=== PATIENT | female | born 1930 | race Caucasian/White ===

== ENCOUNTER 2018-10-18 12:32 | Inpatient (IN) ==
[2018-10-18] MEDS ORDERED: SODIUM CHLORIDE 0.9% 1000ML 1,000 ML IV SCH (13:00)
[2018-10-18 13:15] LABS: Alanine Aminotransferase 87 U/L (12-78); Albumin Level 3.5 gm/dl (3.4-5.0); Aspartate Aminotransferase 170 U/L (15-37); BUN Creatinine Ratio 19.1 (10-20); Bilirubin Direct 0.2 mg/dl (0-0.2); Blood Urea Nitrogen 20 mg/dl (7-18); Calcium 8.9 mg/dl (8.5-10.1); Carbon Dioxide 22 mmol/L (21-32); Chloride 107 mmol/L (98-107); Creatinine Clr Calc Pharmacy 33.3 ml/min; Est GFR (African American) 55.7; Est GFR (Non-African American) 48.1; Glucose 125 mg/dl (70-99); Lipase 232 U/L (73-393); Magnesium 2.4 mg/dl (1.8-2.4); Sodium 138 mmol/L (136-145)
[2018-10-18] MEDS ORDERED: SODIUM CHLORIDE 0.9% 250 ML IV PRN ×2 (13:15→16:32)
[2018-10-18 13:18] LABS: Hemoglobin 5.6 g/dL (12.0-16.0); Mean Corpuscular Hemoglobin 16.9 pg (25-34); Mean Corpuscular Hgb Conc 26.7 g/dL (32-36); Mean Corpuscular Volume 63.3 fL (80-100); Mean Platelet Volume 9.1 fL (7.4-10.4); Platelet Count 277 K/uL (130-400); RDW Coefficient of Variation 20.8 % (11.5-14.5); RDW Standard Deviation 47.9 fL (36.4-46.3); Red Blood Count 3.32 M/uL (4.2-5.4); White Blood Count 6.97 K/uL (4.8-10.8)
[2018-10-18 13:20] LABS: Alkaline Phosphatase 109 U/L (45-117); Bilirubin,Total 0.6 mg/dl (0.2-1); NT Pro B Type Natriuretic Pept 1583 pg/ml (0-1800); Total Protein 7.5 gm/dl (6.4-8.2); Troponin I < 0.015 ng/ml (0-0.045)
[2018-10-18 13:28] LABS: Anisocytosis Present; Basophils # (auto) 0.06 K/uL (0-0.2); Basophils % (auto) 0.9 %; Eosinophils # (auto) 0.06 K/uL (0-0.5); Eosinophils % (auto) 0.9 %; Hypochromasia Present; Immature Granulocytes # (auto) 0.01 K/uL (0.00-0.02); Immature Granulocytes % (auto) 0.1 %; Lymphocytes # (auto) 1.99 K/uL (1.2-3.4); Lymphocytes % (auto) 28.6 %; Microcytosis Present; Monocytes # (auto) 0.29 K/uL (0.11-0.59); Monocytes % (auto) 4.2 %; Neutrophils # (auto) 4.56 K/uL (1.4-6.5); Neutrophils % (auto) 65.3 %; Polychromasia 1+
[2018-10-18 13:36] LABS: INR 1.1 (0.9-1.1); Partial Thromboplastin Ratio 0.9; Partial Thromboplastin Time 24.8 Seconds (21.0-31.0); Prothrombin Time 11.2 Seconds (9.0-12.0)
--- NOTE | 2018-10-18 13:43 | XRay Report ---
XR chest 1V portable CLINICAL HISTORY: Chest Pain dyspnea COMPARISON STUDY: No previous studies for comparison. FINDINGS: Mild cardiomegaly. Prominent pulmonary vasculature. Diaphragms are smooth. No evidence for superimposed infiltrate. IMPRESSION: Developing congestive heart failure. The above report was generated using voice recognition software. It may contain grammatical, syntax or spelling errors. Electronically signed by: Jack Encarnacion M.D. 10/18/2018 1:42 PM
--- NOTE | 2018-10-18 14:35 | History & Physical Report ---
Date of Service October 18, 2018 Assessment & Plan (1) Dizziness: (2) Microcytic hypochromic anemia: (3) Lactic acidosis: This is an 88-year-old female who has significant past medical history of HTN, history of migraines, postherpetic neuralgia who presents to [facility] ED secondary to dizziness and shortness of breath x1 day. In ED pt initially found to be in Afib with RVR notable lab abnormalities include significant microcytic anemia with H/H 5.6/21.0, lactic acidosis 2.1, elevated bun/cr 20/1.05, elevated LFT AST 170, ALT 87 ECG read accelerated junctional rhythm with some anterolateral ST T wave abn, but appears more consistent with Afib with RVR CXR concerning for development of CHF In ED pt received 1L IVF bolus along with 2 unit PRBC ordered admit to PCU transfuse 2 unit PRBC with 40mg IV Lasix in between units GI consulted due to new onset microcytic anemia Anemia and celiac panel ordered check retic count/LDH H/H q6h stop ASA at this time (4) Atrial fibrillation with RVR: Afib with RVR likely in setting of acute anemia, serial ecgs Transfuse 2 units with PRBC CHADSVASC 3 will re evaluate from cardiac standpoint once blood repleted if continues to remain in afib with RVR will discuss with cardiology she is without chest pain and troponin WNL (5) Elevated LFTs: AST 170 and ALT 87 check RUQ U/S Tbili and alk phos WNL (6) HTN (hypertension): hold metoprolol given hypotension (7) Post herpetic neuralgia: has been taking prn ibuprofen at home complains of pain being persistent and affecting QOL once hemodynamically stable could consider gabapentin (8) DVT prophylaxis: SCD/TEDS no chemical prophylaxis given anemia Disposition: admit to telemetry Follow up: PCP Kathleen Griffith PA-C upon discharge Patient was seen and examined in collaboration with Dr. Nixon, please see addendum Starting 10/19/18 patient will be under the care of Dr. Page History of Present Illness Chief Complaint: DIZZY and SOB x 1 day. Primary Care Provider: Kathleen Griffith This is an 88-year-old female who has significant past medical history of HTN, history of migraines, postherpetic neuralgia who presents to [facility] ED secondary to dizziness and shortness of breath x1 day. Patient states when she woke up and got out of bed today she felt dizzy and lightheaded. She went into use the bathroom and when she came out she felt like she could pass out. Also was having palpitations. Granddaughter was near her who assisted her to her bed. She also had dyspnea on exertion this morning as well and family felt she overall looked pale. She does note CROWDER for approximately the past 2 to 3 months. Further she notes she has not been feeling well for the past 3 months ever since she had an episode of shingles on her right buttock. She was treated with antivirals appropriately but had persistent postherpetic neuralgia. She takes occasional ibuprofen for this but not on a daily basis. Otherwise she just, "lives with the pain." Outside of the shingles she denies any recent illness. Denies any fever, chills, sweats, jose alberto syncope, chest pain, hemoptysis, nausea, vomiting, diarrhea, abdominal pain, melena, hematochezia, vaginal bleeding. She does complain of dysuria, but feels related to her, "shingle pain. " She does have increased frequency with urination but only at night. She denies any increased urgency or hematuria. Never at bedside. She is otherwise healthy 88-year-old female who lives with her granddaughter and great-grandchild. Does not need any assist device for ambulation. Denies any recent smoking or alcohol use. Denies any prior history of CAD, CO, CVA, cardiac arrhythmia, diabetes, anemia or GI bleed. Her last colonoscopy was approximately 20 years ago when she elicits she had a polyp removed. Allergies Allergy/AdvReac Type Severity Reaction Status Date / Time amoxicillin AdvReac Intermediate Rash Unverified 10/18/18 13:53 diphenhydramine AdvReac Intermediate Rash Unverified 10/18/18 13:53 [From Benadryl] Penicillins AdvReac Intermediate Severe Rash Unverified 10/18/18 13:53 Home Medications Home Medications Medication Instructions Recorded Confirmed Type aspirin 81 mg PO BID 10/18/18 10/18/18 History ibuprofen 200 mg PO Q6H PRN 10/18/18 10/18/18 History metoprolol tartrate 25 mg PO BID 10/18/18 10/18/18 History Past Med/Surg History Medical History Migraine HTN (hypertension) History of tooth extraction History of shingles Surgical History History of colonoscopy Social History Preferred Language: Divehi Communication Ability: Effective Current Living Situation: Family Current Living Situation Comment: Lives with granddaugther and great grandchild Feels Safe at Home: Yes Smoking Status: Former smoker Age Quit Using Tobacco: 32 ; Number of Years Since Quit: 50 ; Hx Alcohol Use: No Hx Substance Use: No Review of Systems Review of Systems: All systems reviewed & are unremarkable except as noted in HPI & below Physical Exam Physical Exam: Constitutional: Elderly, petite F, pale, vitals as above, NAD, sitting up in bed, pleasant, conversing easily Head: Normocephalic, Atraumatic Eyes: PERRL, conjunctivae normal, anicteric sclerae but pale ENMT: external ear and nose normal, oropharynx dry Neck: trachea midline, no thyromegaly normal visual inspection Respiratory: normal respiratory effort, lungs clear to auscultation, +bibasilar crackles, but no wheeze or rhonchi. Normal insp/exp effort, no accessory muscle use Cardiovascular: IRR?IRR, 1/6 LINCOLN soft at apex, trace pretibial and pedal edema Vessels: no JVD or carotid bruit Chest: normal inspection of chest Abdomen: normal bowel sounds, soft, nontender, no hepatosplenomegaly , negative balderas cordoba sign Musculoskeletal: no cyanosis or clubbing, extremities motor strength 5/5 Skin: no rashes, warm mild turgor cap refill > 2 sec Neurologic: PERRL, EOMI, accommodation nl, no face palsy, no dysarthria CN's II-XI intact bilaterally and moves all extremities Psychiatric: A+Ox3, euthymic affect Lymphatic: no cervical or axillary lymphadenopathy : deferred Results & Data Vital Signs (Past 12 Hours) Vital Signs Temp Pulse Resp BP Pulse Ox 10/18/18 13:30 126 H 17 123/71 97 10/18/18 13:16 135 H 26 H 150/53 H 97 10/18/18 12:57 124 H 16 99 10/18/18 12:35 127 H 23 122/50 L 98 10/18/18 12:32 36.6 C 125 H 16 122/50 L 99 Laboratory Results Short CBC 10/18/18 Range/Units 12:02 WBC 6.97 (4.8-10.8) K/uL Hgb 5.6 L* (12.0-16.0) g/dL Hct 21.0 L (37-47) % Plt Count 277 (130-400) K/uL BMP 10/18/18 12:02 Sodium 138 Potassium 4.0 Chloride 107 Carbon Dioxide 22 BUN 20 H Creatinine 1.05 Glucose 125 H Calcium 8.9 Cardiac Enzymes 10/18/18 Range/Units 12:02 Troponin I < 0.015 (0-0.045) ng/ml Liver Function 10/18/18 Range/Units 12:02 Total Bilirubin 0.6 (0.2-1) mg/dl Direct Bilirubin 0.2 (0-0.2) mg/dl AST 170 H (15-37) U/L ALT 87 H (12-78) U/L Alkaline Phosphatase 109 (45-117) U/L Albumin 3.5 (3.4-5.0) gm/dl Diagnostic Findings CXR: IMPRESSION: Developing congestive heart failure. Medications Administered Discontinued Medications Sodium Chloride (Nss 1000ml) 1,000 mls @ 999 mls/hr IV .Q1H1M JUDE Stop: 10/18/18 14:00 Last Admin: 10/18/18 13:29 Dose: 999 mls/hr Documented by: [id number] ECG Rate (beats per minute): 122 Rhythm: atrial fibrillation Code Status & VTE Plan VTE Prophylaxis Plan VTE Prophylaxis will be ordered: Yes Supervising Physician Co-Signing Physician Notes I, Dr. Ariel Nixon, have seen and examined the patient with physician accountant assistant and agree with the assessment and plan as above and would like to comment that This is a patient who presents with ATRIAL FIBRILLATION WITH RAPID VENTRICULAR RESPONSE likely secondary to ANEMIA ADMISSION HEMOGLOBIN IS 5.6, unclear at this time as to the cause of the anemia as patient denies gross bleeding from orifices and normal brown stool but will need to rule out acute blood loss anemia from a gastrointestinal bleed. currently to be transfused 2 units of PRBC plan is to complete transfusion and may be possible that heart rates can come down after adequate hemoglobin trend Hgb, monitor ELEVATED LACTIC ACID, TRANSAMINITIS Gastronenterology service discussed with patient and patient's family about upper possible EGD/colonoscopy on 10/19/18 agree with other assessment and plans as documented by physician accountant assistant daughter [phone] affirming FULL CODE STATUS on exam in the ED general: currently getting PRBC transfusion, not in distress. patient speaking comfortably and described shortness of breath and palpitations at home before coming to the hospital heart: tachycardia from 120 to 130 beats per minute Lungs: generally clear lung peralta, no wheezing abdomen: soft, nontender, bowel sounds present Extremities: no edmea neuro/psych: moves extremities, verbal, awake, cooperative My colleague Dr. Page will be following the patient starting on 10/19/18
--- NOTE | 2018-10-18 14:49 | Gastrointestinal Consultation ---
Date of Consultation October 18, 2018 Assessment & Plan (1) Anemia: Pt is a 88 y/o female seen for symptomatic anemia. She denies any overt s/s of GI//LAST PULLER bleeding. She isn't on any anticoagulants. Used Ibuprofen for post shingles pain and on ASA 81mg daily. Hx of colon polyps, colonoscopies x2 in - CL diet today, NPO after midnight - Agree w PRBC transfusion and monitor H/H closely - Anemia workup: iron indices, celiac panel, B12, FA levels - EGD/Colonoscopy evaluation tomorrow by Dr. Guerrier to r/o GI bleeding, celiac dz, malignancies. Bowel prep ordered Supervising Physician Co-Signing Physician Notes I performed a history and physical examination of the patient, including specifically on physical exam - soft, nontender abdomen. I have discussed the patient's management with Charissa. Please refer to the nurse practitioner's note for the documented findings and plan of care. 88 female patient presented with symptomatic anemia, no overt ongoing GI bleeding. Plan: EGD and colonoscopy tomorrow. History of Present Illness Reason for Consultation: Anemia Requesting Physician: Lashell Valencia PA-C Attending Physician: Dr. Pawel Guerrier History of Present Illness Pt is a 88 y/o female w PMHx of HTN, migraines, Afib, shingles who presented to ED w c/o light headedness, SOB, "pounding" heartbeats . Upon evaluation found to be anemia w H/H of 5.6/21. Plt 277, INR 1.1. She denies any associated abd pain, indigestion, n/v, dark tarry stools or rectal bleeding. Also denies any urinary or vaginal bleeding. She was taking Ibuprofen for shingles. Denies any anticoa gulants. On ASA 81mg. She had hx of colonoscopies x 2 in , found to have flat polyps. Denies any hx of colorectal ca, celiacs dz or autoimmune dz. Allergies Allergy/AdvReac Type Severity Reaction Status Date / Time amoxicillin AdvReac Intermediate Rash Unverified 10/18/18 13:53 diphenhydramine AdvReac Intermediate Rash Unverified 10/18/18 13:53 [From Benadryl] Penicillins AdvReac Intermediate Severe Rash Unverified 10/18/18 13:53 Home Medications Home Medications Medication Instructions Recorded Confirmed Type aspirin 81 mg PO BID 10/18/18 10/18/18 History ibuprofen 200 mg PO Q6H PRN 10/18/18 10/18/18 History metoprolol tartrate 25 mg PO BID 10/18/18 10/18/18 History Patient History Medical History Migraine HTN (hypertension) History of tooth extraction History of shingles Surgical History History of colonoscopy Social History Preferred Language: Tajik Communication Ability: Effective Current Living Situation: Family Current Living Situation Comment: Lives with granddaugther and great grandchild Feels Safe at Home: Yes Smoking Status: Former smoker Age Quit Using Tobacco: 32 ; Number of Years Since Quit: 50 ; Hx Alcohol Use: No Hx Substance Use: No Review of Systems Review of Systems: All systems reviewed & are unremarkable except as noted in HPI & below Physical Exam Constitutional: WD/WN, vitals as above well groomed, cooperative and comfortable Eyes: PERRL, conjunctivae normal, anicteric sclerae ENMT: external ear and nose normal, oropharynx normal Respiratory: normal respiratory effort, lungs clear to auscultation Cardiovascular: RRR, no murmur, no edema Gastrointestinal (Abdomen): normal bowel sounds, soft, nontender, no hepatosplenomegaly Skin: no rashes, warm and dry no jaundice Psychiatric: A+Ox3, euthymic affect Lymphatic: no lymphedema Results & Data Vital Signs (Past 12 Hours) Vital Signs Temp Pulse Resp BP Pulse Ox 10/18/18 13:30 126 H 17 123/71 97 10/18/18 13:16 135 H 26 H 150/53 H 97 10/18/18 12:57 124 H 16 99 10/18/18 12:35 127 H 23 122/50 L 98 10/18/18 12:32 36.6 C 125 H 16 122/50 L 99
[2018-10-18 15:50] LABS: Reticulocyte % 1.2 % (0.5-2.0); Reticulocytes # 0.04 10^6/uL (0.02-0.10)
[2018-10-18] MEDS ORDERED: ACETAMINOPHEN 325 MG TAB PO PRN (16:32)
[2018-10-18] MEDS ORDERED: ALUMINUM/MAGNESIUM SUSP 30 ML UDC PO PRN (16:32)
[2018-10-18] MEDS ORDERED: MAGNESIUM HYDROXIDE SUSP 30 ML UDC PO PRN (16:32)
[2018-10-18] MEDS ORDERED: POLYETHYLENE (MIRALAX) 17 GM PACK PO PRN (16:32)
[2018-10-18] MEDS ORDERED: POLYETHYLENE (MIRALAX) 17 GM PACK PO ONE ×2 (17:00→21:00)
[2018-10-18] MEDS ORDERED: POLYETHYLENE GLYCOL 3350 238 GM BTL PO ONE (17:00)
[2018-10-18] MEDS ORDERED: FUROSEMIDE 40 MG in SYRINGE 0 ML IV ONE (17:00)
[2018-10-18] MEDS ORDERED: BISACODYL 5 MG TABEC PO SCH (17:00)
--- NOTE | 2018-10-18 17:30 | Emergency Department Note ---
Entered by Carmela Gallegos acting as a scribe for En Crews History of Present Illness General Chief complaint: Arrhythmia/Palpitations Time Seen by Provider: 10/18/18 12:51 Source: patient and family Mode of arrival: EMS Limitations: no limitations History of Present Illness Onset (ago): hour(s) 3 Location: chest Radiation: non-radiation Pain Consistency: + intermittent Relieved By: + none Exacerbated By: + none Associated symptoms: + other (-hematochezia, -hematuria) Treatments prior to arrival: none The patient is an 88 year old female who presents to the ED with complaints of palpitations. She states after she took a shower this morning, she felt short of breath and noticed her heart was "pounding". She also became dizzy, so her family had her eat a bowl of cereal. She seemed to be feeling better, then after standing up to wash her hands after using the restroom, she felt "faint", and her family had to help her sit down. She does not take any daily blood thinners. She denies any recent hematochezia or hematuria. The patients family notes she has been weak since being treated for shingles in June. Home Medications Home Medications Medication Instructions Recorded Confirmed Type aspirin 81 mg PO BID 10/18/18 10/18/18 History ibuprofen 200 mg PO Q6H PRN 10/18/18 10/18/18 History metoprolol tartrate 25 mg PO BID 10/18/18 10/18/18 History Allergies Allergy/AdvReac Type Severity Reaction Status Date / Time amoxicillin AdvReac Intermediate Rash Unverified 10/18/18 13:53 diphenhydramine AdvReac Intermediate Rash Unverified 10/18/18 13:53 [From Benadryl] Penicillins AdvReac Intermediate Severe Rash Unverified 10/18/18 13:53 Past Med/Surg History Medical History Migraine HTN (hypertension) History of tooth extraction History of shingles Surgical History History of colonoscopy Social History Preferred Language: Maori Communication Ability: Effective Camp Program Director Required: Yes Beliefs That Will Affect Care: None Current Living Situation: Family Current Living Situation Comment: Lives with granddaugther and great grandchild Other Information That Helps Us Care for You: No Feels Safe at Home: Yes Safety Concerns: Feels Safe At This Time Smoking Status: Former smoker Age Quit Using Tobacco: 32 ; Smoking End Date: 52 years ; Number of Years Since Quit: 50 ; Hx Alcohol Use: No Hx Substance Use: No Review of Systems See HPI for pertinent positives & negatives. and A total of 10 systems reviewed and were otherwise negative Physical Exam Vital Signs Vital Signs - 24 hr 10/18/18 12:32 10/18/18 12:35 10/18/18 12:57 Temperature 36.6 C Temperature Source Oral Sepsis Recent Fever Within 48 Hours No Sepsis New/Unexplained Change in Mental Status No Sepsis Action Taken by Nursing No Action Required Pulse Rate 125 H 127 H 124 H Pulse Rate from SpO2 Sensor Pulse Rhythm Irregular Irregular Respiratory Rate 16 23 16 Respiratory Effort / Characteristics Non-Labored Respiratory Depth Normal Respiratory Pattern Regular Blood Pressure 122/50 L 122/50 L Blood Pressure Mean 74 74 Pulse Oximetry 99 98 99 Oxygen Delivery Method Room Air Room Air Room Air 10/18/18 13:16 10/18/18 13:30 10/18/18 14:00 Temperature Temperature Source Sepsis Recent Fever Within 48 Hours Sepsis New/Unexplained Change in Mental Status Sepsis Action Taken by Nursing Pulse Rate 135 H 126 H 127 H Pulse Rate from SpO2 Sensor 68 68 82 Pulse Rhythm Respiratory Rate 26 H 17 17 Respiratory Effort / Characteristics Respiratory Depth Respiratory Pattern Blood Pressure 150/53 H 123/71 100/43 L Blood Pressure Mean 85 88 62 Pulse Oximetry 97 97 93 Oxygen Delivery Method Room Air Room Air Room Air GENERAL: She is oriented to person, place, and time. She appears well-developed and well-nourished. She does not appear distressed. HENT: Exam performed. * Head: Normocephalic and atraumatic. * Right Ear: External ear normal. No mastoid tenderness. * Left Ear: External ear normal. No mastoid tenderness. * Mouth/Throat: The oropharynx is clear and moist. No trismus in the jaw. No dental abscesses or uvula swelling. No oropharyngeal exudate or tonsillar abscesses. EYES: Conjunctivae and EOM are normal. Pupils are equal, round, and reactive to light. Right eye exhibits no discharge. Left eye exhibits no discharge. No scleral icterus. NECK: Normal range of motion. Neck supple. No JVD present. No spinous process tenderness present. No carotid bruit present. No rigidity. No tracheal deviation and normal range of motion present. No Brudzinski's sign and no Kernig's sign noted. CV: Irregular rhythm, tachycardic heart rate, normal heart sounds and intact d istal pulses. There is no peripheral edema. Palpable radial pulses bue. PULM/CHEST: Effort normal and breath sounds normal. No respiratory distress. No stridor. She has no wheezes. She has no rales. Chest Wall: She exhibits no tenderness. ABD: The abdomen is soft. Bowel sounds are normal. She has no distension. No mass is present. There is no tenderness. There is no rebound, no guarding, no Avila's sign and no tenderness at McBurney's point. Rovsig negative * Rectal: Performed with nursing repair department supervisor, hem negative MUSC/SKEL: Normal range of motion. There is no peripheral edema, tenderness or deformity. LYMPH: No cervical adenopathy. NEURO: She is alert and oriented to person, place, and time. She has normal strength. No cranial nerve deficit or sensory deficit. Coordination and gait no rmal. GCS eye subscore is 4. GCS verbal subscore is 5. GCS motor subscore is 6. cerbellar tests wnl. SKIN: Skin is pale. Skin is warm and dry. She is not diaphoretic. PSYCH: She has a normal mood and affect. Her behavior is normal. Judgment and thought content normal. Course 1252: The patient was evaluated in room B12 and a complete history and physical were performed. 1310: Labs show hemoglobin is 5.6. Patient was agreeable for blood transfusion. 2 units packed red blood cells ordered in the emergency department. I discussed the patients case with Antony Dangelo. The patient will be further evaluated. Consultations Consultation #1: I discussed the patients case with Antony Dangelo. The patient will be further evaluated. Time: 13:40 Administered Medications Discontinued Medications Sodium Chloride (Nss 1000ml) 1,000 mls @ 999 mls/hr IV .Q1H1M JUDE Stop: 10/18/18 14:00 Last Infusion: 10/18/18 14:52 Dose: 0 mls/hr Documented by: [id number] Admin: 10/18/18 13:29 Dose: 999 mls/hr Documented by: [id number] Medical Decision Making Medical Records Attestation: I reviewed the patient's medical records. Home Medications Current Medication List: was personally reviewed by me Laboratory Data Attestation: I reviewed the patient's lab results. Result diagrams: 10/18/18 12:02 10/18/18 12:02 Lab Results 10/18/18 10/18/18 10/18/18 Range/Units 12:02 12:02 13:12 WBC 6.97 (4.8-10.8) K/uL RBC 3.32 L (4.2-5.4) M/uL Hgb 5.6 L* (12.0-16.0) g/dL Hct 21.0 L (37-47) % MCV 63.3 L (80-100) fL MCH 16.9 L (25-34) pg MCHC 26.7 L (32-36) g/dL RDW Std Deviation 47.9 H (36.4-46.3) fL RDW Coeff of Chaka 20.8 H (11.5-14.5) % Plt Count 277 (130-400) K/uL MPV 9.1 (7.4-10.4) fL Immature Gran % (Auto) 0.1 % Neut % (Auto) 65.3 % Lymph % (Auto) 28.6 % [place] % (Auto) 4.2 % Eos % (Auto) 0.9 % Baso % (Auto) 0.9 % Reticulocyte % (Auto) 1.2 (0.5-2.0) % Immature Gran # (Auto) 0.01 (0.00-0.02) K/uL Neut # (Auto) 4.56 (1.4-6.5) K/uL Lymph # (Auto) 1.99 (1.2-3.4) K/uL [place] # (Auto) 0.29 (0.11-0.59) K/uL Eos # (Auto) 0.06 (0-0.5) K/uL Baso # (Auto) 0.06 (0-0.2) K/uL Reticulocyte # 0.04 (0.02-0.10) 10^6/uL Polychromasia 1+ Hypochromasia Present Anisocytosis Present Microcytosis Present PT (9.0-12.0) Seconds INR (0.9-1.1) APTT (21.0-31.0) Seconds PTT Ratio D-Dimer Sodium 138 (136-145) mmol/L Potassium 4.0 (3.5-5.1) mmol/L Chloride 107 (98-107) mmol/L Carbon Dioxide 22 (21-32) mmol/L Anion Gap 9.0 (3-11) BUN 20 H (7-18) mg/dl Creatinine 1.05 (0.6-1.2) mg/dl Est Cr Clr Drug Dosing 33.3 ml/min Est GFR ( Amer) 55.7 Est GFR (Non-Af Amer) 48.1 BUN/Creatinine Ratio 19.1 (10-20) Glucose 125 H (70-99) mg/dl Lactate 2.1 H* (0.4-2.0) mmol/L Calcium 8.9 (8.5-10.1) mg/dl Magnesium 2.4 (1.8-2.4) mg/dl Total Bilirubin 0.6 (0.2-1) mg/dl Direct Bilirubin 0.2 (0-0.2) mg/dl AST 170 H (15-37) U/L ALT 87 H (12-78) U/L Alkaline Phosphatase 109 (45-117) U/L Troponin I < 0.015 (0-0.045) ng/ml NT-Pro-B Natriuret Pep 1583 (0-1800) pg/ml Total Protein 7.5 (6.4-8.2) gm/dl Albumin 3.5 (3.4-5.0) gm/dl Lipase 232 (73-393) U/L Blood Type Blood Type Recheck Antibody Screen Crossmatch 10/18/18 10/18/18 10/18/18 Range/Units 13:12 13:13 13:33 WBC (4.8-10.8) K/uL RBC (4.2-5.4) M/uL Hgb (12.0-16.0) g/dL Hct (37-47) % MCV (80-100) fL MCH (25-34) pg MCHC (32-36) g/dL RDW Std Deviation (36.4-46.3) fL RDW Coeff of Chaka (11.5-14.5) % Plt Count (130-400) K/uL MPV (7.4-10.4) fL Immature Gran % (Auto) % Neut % (Auto) % Lymph % (Auto) % [place] % (Auto) % Eos % (Auto) % Baso % (Auto) % Reticulocyte % (Auto) (0.5-2.0) % Immature Gran # (Auto) (0.00-0.02) K/uL Neut # (Auto) (1.4-6.5) K/uL Lymph # (Auto) (1.2-3.4) K/uL [place] # (Auto) (0.11-0.59) K/uL Eos # (Auto) (0-0.5) K/uL Baso # (Auto) (0-0.2) K/uL Reticulocyte # (0.02-0.10) 10^6/uL Polychromasia Hypochromasia Anisocytosis Microcytosis PT 11.2 (9.0-12.0) Seconds INR 1.1 (0.9-1.1) APTT 24.8 (21.0-31.0) Seconds PTT Ratio 0.9 D-Dimer Cancelled Sodium (136-145) mmol/L Potassium (3.5-5.1) mmol/L Chloride (98-107) mmol/L Carbon Dioxide (21-32) mmol/L Anion Gap (3-11) BUN (7-18) mg/dl Creatinine (0.6-1.2) mg/dl Est Cr Clr Drug Dosing ml/min Est GFR ( Amer) Est GFR (Non-Af Amer) BUN/Creatinine Ratio (10-20) Glucose (70-99) mg/dl Lactate (0.4-2.0) mmol/L Calcium (8.5-10.1) mg/dl Magnesium (1.8-2.4) mg/dl Total Bilirubin (0.2-1) mg/dl Direct Bilirubin (0-0.2) mg/dl AST (15-37) U/L ALT (12-78) U/L Alkaline Phosphatase (45-117) U/L Troponin I (0-0.045) ng/ml NT-Pro-B Natriuret Pep (0-1800) pg/ml Total Protein (6.4-8.2) gm/dl Albumin (3.4-5.0) gm/dl Lipase (73-393) U/L Blood Type O Positive Blood Type Recheck O Positive Antibody Screen NEGATIVE Crossmatch See Detail Imaging Data Radiologist's Impression: Radiology results as stated below per my review and the radiologist's interpretation: XR chest 1V portable CLINICAL HISTORY: Chest Pain dyspnea COMPARISON STUDY: No previous studies for comparison. FINDINGS: Mild cardiomegaly. Prominent pulmonary vasculature. Diaphragms are smooth. No evidence for superimposed infiltrate. IMPRESSION: Developing congestive heart failure. The above report was generated using voice recognition software. It may contain grammatical, syntax or spelling errors. Electronically signed by: Jack Encarnacion M.D. 10/18/2018 1:42 PM ECG Data Attestation: I personally reviewed and interpreted this ECG as follows: Indication: palpitations Rate (beats per minute): 125 Rhythm: atrial fibrillation Findings: + other (QRS and QTC within normal limits); no ST depression and no ST elevation Blood Pressure Blood Pressure Findings: Elevated blood pressure Blood Pressure Disposition: further management by hospitalist MDM Narrative Labs show hemoglobin is 5.6. Patient was agreeable for blood transfusion. 2 units packed red blood cells ordered in the emergency department. I [facility] the [facility]. The patient will be further evaluated. Impression & Plan Anemia, Atrial fibrillation Critical Care Time Critical Care Time: Yes Total Critical Care Time: 68 I have personally spent 68 minutes of critical care time in the direct management of this patient. This includes bedside care, interpretation of diagnostic studies, and testing, discussion with consultants, patient, and family members, and other required patient management activities. This 68 cameron phil is in excess of all separately billable procedures. Discharge Plan Visit Data *Final* Discharge Date/Time: 10/18/18 16:09 Chief Complaint: Arrhythmia/Palpitations ED Provider: En Crews Discharge Problem: Anemia, Atrial fibrillation Patient Disposition: Admitted As Inpatient Discharge Instructions Interventions: ED Discharge Assessment Last Done: 10/18/18 16:09 The scribe's documentation has been prepared under my direction and personally reviewed by me in its entirety. I confirm that the note above accurately reflects all work, treatment, procedures, and medical decision making performed by me.
[2018-10-18 18:45] LABS: Hematocrit (blood only) 23.6 % (37-47); Hemoglobin 6.6 g/dL (12.0-16.0)
[2018-10-18 18:51] LABS: Appearance Urine Clear (Clear); Bilirubin Urine Negative (Negative); Blood Urine Negative (Negative); Color Urine Yellow; Glucose Urine UA Negative (Negative); Ketones Urine Negative (Negative); Leukocyte Esterase Urine Negative (Negative); Nitrite Urine Negative (Negative); Protein Urine Negative (Negative); Specific Gravity Urine 1.019 (1.000-1.030); Urobilinogen Urine Negative (Negative); pH Urine 5.5 (4.5-7.5)
[2018-10-18 19:06] LABS: Ferritin 5.4 ng/ml (8-388); T4 Free Thyroxine 1.29 ng/dl (0.8-1.6)
[2018-10-18 19:14] LABS: Folate (Folic Acid) > 24.00 ng/ml (>5.38); Vitamin B12 1031 pg/ml (211-911)
[2018-10-18] MEDS ORDERED: POLYETHYLENE GLYCOL 3350 238 GM BTL PO SCH (21:00)
--- NOTE | 2018-10-18 21:08 | Ultrasound Report ---
US abdomen limited CLINICAL HISTORY: 88 years-old Female presenting with RUQ; elevated LFTS. TECHNIQUE: Real-time grayscale and limited color Doppler ultrasound imaging of the abdomen limited to the right upper quadrant was performed. COMPARISON: None. FINDINGS: Pancreas: Visualized portions of the pancreatic head and body normal. Liver: Hyperechogenic parenchyma with heterogeneous echotexture, likely indicating fibrosis or steato sis. The liver measures 13.2 cm in maximal sagittal dimension. No sonographic evidence of hepatic mas s. Main portal vein patent with normal directional flow. Biliary: No intrahepatic biliary ductal dilatation. Common bile duct measures up to 3 mm in diameter. Gallbladder: No evidence of gallstones, gallbladder wall thickening, gallbladder distention, or peric holecystic fluid or inflammatory change. Sonographic Avila's sign negative. Right kidney: Normal in appearance without evidence of hydronephrosis. Ascites: Minimal upper abdominal ascites. Other: None. IMPRESSION: 1. No cholelithiasis or biliary ductal dilatation. No evidence of cholecystitis. 2. Hyperechogenic and heterogeneous liver parenchyma could indicate underlying fibrosis or steatosis . Electronically signed by: Itz Goyal M.D. 10/18/2018 9:06 PM
[2018-10-18] MEDS ORDERED: METOPROLOL TARTRATE 25 MG TAB PO STA (22:01)
[2018-10-18] MEDS ORDERED: METOPROLOL TARTRATE 1 MG/ML VIAL IV PRN (22:02)
[2018-10-19 00:17] LABS: BUN Creatinine Ratio 18.8 (10-20); Calcium 8.4 mg/dl (8.5-10.1); Creatinine Clr Calc Pharmacy 37.1 ml/min; Est GFR (African American) 67.1; Est GFR (Non-African American) 57.9; Potassium 3.6 mmol/L (3.5-5.1)
[2018-10-19 00:30] LABS: Albumin Globulin Ratio 0.9 (0.9-2); Albumin Level 3.3 gm/dl (3.4-5.0); Bilirubin,Total 1.6 mg/dl (0.2-1); Globulin 3.8 gm/dl (2.5-4.0); Total Protein 7.1 gm/dl (6.4-8.2)
[2018-10-19] MEDS ORDERED: POTASSIUM CHLORIDE 20 MEQ TABCR PO STA (01:15)
[2018-10-19] MEDS ORDERED: METOPROLOL TARTRATE 1 MG/ML VIAL IV STA (01:15)
[2018-10-19] MEDS ORDERED: ACETAMINOPHEN 325 MG TAB PO PRN (01:16)
[2018-10-19 06:00] LABS: Basophils # (auto) 0.03 K/uL (0-0.2); Basophils % (auto) 0.4 %; Eosinophils # (auto) 0.08 K/uL (0-0.5); Eosinophils % (auto) 1.2 %; Hemoglobin 7.3 g/dL (12.0-16.0); Immature Granulocytes # (auto) 0.01 K/uL (0.00-0.02); Immature Granulocytes % (auto) 0.1 %; Lymphocytes # (auto) 2.45 K/uL (1.2-3.4); Lymphocytes % (auto) 35.6 %; Mean Corpuscular Hemoglobin 19.8 pg (25-34); Mean Corpuscular Hgb Conc 29.2 g/dL (32-36); Mean Corpuscular Volume 67.8 fL (80-100); Mean Platelet Volume 9.1 fL (7.4-10.4); Monocytes # (auto) 0.52 K/uL (0.11-0.59); Monocytes % (auto) 7.6 %; Neutrophils # (auto) 3.79 K/uL (1.4-6.5); Neutrophils % (auto) 55.1 %; Platelet Count 235 K/uL (130-400); RDW Coefficient of Variation 23.7 % (11.5-14.5); RDW Standard Deviation 58.4 fL (36.4-46.3); Red Blood Count 3.69 M/uL (4.2-5.4); White Blood Count 6.88 K/uL (4.8-10.8)
[2018-10-19 06:25] LABS: Albumin Level 3.1 gm/dl (3.4-5.0); Calcium 8.3 mg/dl (8.5-10.1); Creatinine Clr Calc Pharmacy 38.8 ml/min; Est GFR (African American) 70.9; Est GFR (Non-African American) 61.2
[2018-10-19 06:28] LABS: Anisocytosis Present; Bilirubin,Total 1.5 mg/dl (0.2-1); Giant Platelets 1+; Globulin 3.2 gm/dl (2.5-4.0); Hypochromasia Present; Microcytosis Present; Total Protein 6.3 gm/dl (6.4-8.2)
[2018-10-19] MEDS: METOPROLOL TARTRATE 25 MG TAB PO SCH ×3 (07:44→20:48)
--- NOTE | 2018-10-19 11:34 | History & Physical Bridge Note ---
Date of Service October 19, 2018 History & Physical Bridge Note I have examined the patient, reviewed the History & Physical and in the interval since the performance of the History & Physical I have noted the following changes of clinical significance: no changes noted Pt did well overnight. Received 2U PRBC transfusion, H/H responded. She completed bowel prep, NPO overnight. Exam: - AAOx3 in NAD - CTA bilateral lungs - HRR no murmur or gallops - Abd soft, non tender, BS present - No edema on extremities. She still has brown liquid stools this AM. Will give one dose of tap water enema to see if we can clean out her colon a bit more in anticipation for EGD and colonoscopy evals this afternoon. Pls keep her NPO Supervising Physician Co-Signing Physician Notes I performed a history and physical examination of the patient, including specifically on physical exam - soft, nontender abdomen. I have discussed the patient's management with Charissa. Please refer to the nurse practitioner's note for the documented findings and plan of care.
[2018-10-19] MEDS ORDERED: ePHEDrine sulfate 50 MG/ML AMP IV PRN (15:08)
[2018-10-19] MEDS ORDERED: ATROPINE SULFATE 0.1 MG/ML 10ML SYR IV PRN (15:08)
--- NOTE | 2018-10-19 15:08 | Anesthesiology Consultation ---
Date of Service October 19, 2018 Assessment & Plan Chart Review Chart Review: Acceptable Risk for Surgery and Patient NOT seen in Pre Admission Testing Consults Requested none ASA ASA4 Proposed Anesthesia Anesthesia Type: MAC Risk / Benefits Reviewed With: PT / POA / Parent / Guardian, Accepts Plan and Informed Consent Obtained History Surgery Operation Date: 10/19/18 10:15 Proposed Procedures p Colonoscopy EGD Dr. Guerrier - Pawel Guerrier MD Height/Weight Height: 5 ft 1 in Weight: 59.2 kg Allergies Allergy/AdvReac Type Severity Reaction Status Date / Time amoxicillin AdvReac Intermediate Rash Unverified 10/18/18 13:53 diphenhydramine AdvReac Intermediate Rash Unverified 10/18/18 13:53 [From Benadryl] Penicillins AdvReac Intermediate Severe Rash Unverified 10/18/18 13:53 Medications Home Medications Medication Instructions Recorded Confirmed Last Taken aspirin 81 mg PO BID 10/18/18 10/18/18 10/18/18 ibuprofen 200 mg PO Q6H PRN 10/18/18 10/18/18 10/17/18 18:00 200mg metoprolol tartrate 25 mg PO BID 10/18/18 10/18/18 10/18/18 Active Medications Generic Name Dose Route Start Last Admin Trade Name Freq PRN Reason Stop Dose Admin Metoprolol Tartrate 12.5 mg 10/19/18 09:00 10/19/18 07:44 Lopressor PO 11/18/18 08:59 12.5 mg TID JUDE Administration NPO Date Last Intake of Fluids: 10/19/18 Time Last Intake of Fluids: 08:30 Last Intake of Fluids Comment: sip with meds Date Last Intake of Solids: 10/18/18 Time Last Intake of Solids: 10:30 Last Intake of Solids Comment: rice crispies Past Medical History Medical History Migraine HTN (hypertension) History of tooth extraction History of shingles Afib Anemia Exercise / Class Metabolic Activity III < 4 Walking/Shop/Light housework Past Surgical History Surgical History History of colonoscopy Past Anesthesia History No Hx of Anesthesia Complications and No Family Hx of Anesthesia Complications History of PONV No Hx of PONV and No Hx of Motion Sickness Social History Smoking Status: Former smoker Smoking End Date: 50 years Hx Alcohol Use: No Hx Substance Use: No Physical Exam Vital Signs Last Vital Signs Temp 37.1 C 10/19/18 14:49 Pulse 78 10/19/18 14:49 Resp 20 10/19/18 14:49 BP 138/74 10/19/18 14:49 Pulse Ox 94 10/19/18 14:49 Constitutional not obese ENMT Mouth: + dentures and + edentulous Thyromental Distance: < 3.5 Finger Breadths Mallampati Class: II Neck normal visual inspection and trachea midline; neck extension not limited Respiratory normal respiratory effort Auscultation: lungs clear to auscultation bilaterally Cardiovascular Rate/Rhythm: regular rate and regular rhythm Heart Sounds: no murmur Vessels: no carotid bruit Musculoskeletal Spine: normal cervical ROM Neurologic moves all extremities Motor/Sensory: no sensory deficit Psychiatric Orientation: alert and oriented x 3 Testing Laboratory Results 10/19/18 05:39 10/19/18 05:39 PT 11.2 Seconds (9.0-12.0) 10/18/18 13:13 INR 1.1 (0.9-1.1) 10/18/18 13:13 APTT 24.8 Seconds (21.0-31.0) 10/18/18 13:13 Urine Color Yellow 10/18/18 18:26 Urine Appearance Clear (Clear) 10/18/18 18:26 Urine pH 5.5 (4.5-7.5) 10/18/18 18:26 Ur Specific [place] 1.019 (1.000-1.030) 10/18/18 18:26 Urine Protein Negative (Negative) 10/18/18 18:26 Urine Glucose (UA) Negative (Negative) 10/18/18 18:26 Urine Ketones Negative (Negative) 10/18/18 18:26 Urine Nitrite Negative (Negative) 10/18/18 18:26 Ur Leukocyte Esterase Negative (Negative) 10/18/18 18:26 Blood Type O Positive 10/18/18 13:12 Antibody Screen NEGATIVE 10/18/18 13:12
[2018-10-19] MEDS ORDERED: LIDOCAINE HCL 2% 2 ML VIAL/AMP(20MG/ML) INFIL ONE (15:43)
[2018-10-19] MEDS ORDERED: PROPOFOL IV EMULSION 10 MG/ML 20 ML VIAL IV ONE (15:43)
--- NOTE | 2018-10-19 16:14 | GI REPORT ---
Patient Name: Brittanie Mae Procedure Date: 10/19/2018 3:23 PM Date of : 1930 Admit Type: Inpatient Age: 88 Gender: Female Attending MD: Pawel Guerrier MD Procedure: Upper GI endoscopy Providers: Pawel Guerrier MD Referring MD: Oswald Page Md Indications: Iron deficiency anemia Medicines: Monitored Anesthesia Care Complications: No immediate complications. Estimated Blood Loss: Estimated blood loss: none. Procedure: Pre-Anesthesia Assessment: - Prior to the procedure, a History and Physical was performed, and patient medications and allergies were reviewed. The patient is competent. The risks and benefits of the procedure and the sedation options and risks were discussed with the patient. All questions were answered and informed consent was obtained. Patient identification and proposed procedure were verified by the physician and the nurse in the procedure room. Mental Status Examination: alert and oriented. Airway Examination: normal oropharyngeal airway and neck mobility. Respiratory Examination: clear to auscultation. CV Examination: normal. ASA Grade Assessment: III - A patient with severe systemic disease. After reviewing the risks and benefits, the patient was deemed in satisfactory condition to undergo the procedure. The anesthesia plan was to use monitored anesthesia care (MAC). Immediately prior to administration of medications, the patient was re-assessed for adequacy to receive sedatives. The heart rate, respiratory rate, oxygen saturations, blood pressure, adequacy of pulmonary ventilation, and response to care were monitored throughout the procedure. The physical status of the patient was re-assessed after the procedure. After obtaining informed consent, the endoscope was passed under direct vision. Throughout the procedure, the patient's blood pressure, pulse, and oxygen saturations were monitored continuously. The Endoscope was introduced through the mouth, and advanced to the second part of duodenum. The upper GI endoscopy was accomplished without difficulty. The patient tolerated the procedure well. Findings: The examined esophagus was normal. Mildly erythematous mucosa was found in the gastric antrum. Biopsies were taken with a cold forceps for Helicobacter pylori testing. Verification of patient identification for the specimen was done by the physician and nurse using the patient's name and date. The duodenal bulb and second portion of the duodenum were normal. Biopsies were taken with a cold forceps for Helicobacter pylori testing. Impression: - Normal esophagus. - Erythematous mucosa in the antrum. Biopsied. - Normal duodenal bulb and second portion of the duodenum. Biopsied. Recommendation: - Await pathology results. - Perform a colonoscopy today. Pawel Guerrier MD 10/19/2018 4:13:41 PM This report has been signed electronically. Note Initiated On: 10/19/2018 3:23 PM Number of Addenda: 0 I attest to the content of the Intraoperative Record and orders documented therein, exceptions below {[id number]}
--- NOTE | 2018-10-19 16:18 | Anesthesiology Progress Note ---
Date of Service October 19, 2018 Anesthesia Post Procedure Vital Signs Vital Signs: Temp Pulse Pulse Resp BP BP BP 10/19/18 14:49 37.1 C 78 20 138/74 10/19/18 10:45 36.9 C 69 20 123/60 10/19/18 03:35 36.9 C 72 18 108/67 10/18/18 23:30 86 10/18/18 23:16 36.3 C L 19 152/66 H 10/18/18 20:33 36.8 C 130 H 20 134/69 10/18/18 19:36 36.6 C 128 H 18 128/61 10/18/18 19:06 36.7 C 128 H 18 138/76 10/18/18 18:51 36.6 C 65 18 146/62 H 10/18/18 18:32 36.8 C 82 18 133/71 10/18/18 17:15 36.4 C L 121 H 18 134/75 10/18/18 17:05 36.3 C L 125 H 18 144/57 H 10/18/18 16:37 36.5 C 126 H 18 140/63 Pulse Ox 10/19/18 14:49 94 10/19/18 10:45 94 10/19/18 03:35 97 10/18/18 23:30 10/18/18 23:16 95 10/18/18 20:33 96 10/18/18 19:36 95 10/18/18 19:06 96 10/18/18 18:51 95 10/18/18 18:32 95 10/18/18 17:15 96 10/18/18 17:05 96 10/18/18 16:37 18 L Transfer of Care Handoff Completed per policy Notes Mental Status: alert / awake / arousable Patient Amnestic to Procedure: Yes Nausea / Vomiting: adequately controlled Pain: adequately controlled Airway Patency, RR, SpO2: stable & adequate BP & HR: stable & adequate Hydration State: stable & adequate Anesthetic Complications: no major complications apparent
--- NOTE | 2018-10-19 16:21 | GI REPORT ---
Patient Name: Brittanie Mae Procedure Date: 10/19/2018 3:35 PM Date of : 1930 Admit Type: Inpatient Age: 88 Gender: Female Attending MD: Pawel Guerrier MD Procedure: Colonoscopy Providers: Pawel Guerrier MD Referring MD: Kathleen Sauer Pa-c, Oswald Page Md Indications: Iron deficiency anemia Medicines: Monitored Anesthesia Care Complications: No immediate complications. Estimated Blood Loss: Estimated blood loss: none. Procedure: Pre-Anesthesia Assessment: - Prior to the procedure, a History and Physical was performed, and patient medications and allergies were reviewed. The patient is competent. The risks and benefits of the procedure and the sedation options and risks were discussed with the patient. All questions were answered and informed consent was obtained. Patient identification and proposed procedure were verified by the physician and the nurse in the procedure room. Mental Status Examination: alert and oriented. Airway Examination: normal oropharyngeal airway and neck mobility. Respiratory Examination: clear to auscultation. CV Examination: normal. ASA Grade Assessment: III - A patient with severe systemic disease. After reviewing the risks and benefits, the patient was deemed in satisfactory condition to undergo the procedure. The anesthesia plan was to use monitored anesthesia care (MAC). Immediately prior to administration of medications, the patient was re-assessed for adequacy to receive sedatives. The heart rate, respiratory rate, oxygen saturations, blood pressure, adequacy of pulmonary ventilation, and response to care were monitored throughout the procedure. The physical status of the patient was re-assessed after the procedure. After I obtained informed consent, the scope was passed under direct vision. Throughout the procedure, the patient's blood pressure, pulse, and oxygen saturations were monitored continuously. The scope was introduced through the anus and advanced to the terminal ileum. The colonoscopy was performed without difficulty. The patient tolerated the procedure well. The quality of the bowel preparation was good. The terminal ileum, ileocecal valve, appendiceal orifice, and rectum were photographed. Findings: The perianal and digital rectal examinations were normal. The terminal ileum appeared normal. A fungating, infiltrative and ulcerated non-obstructing large mass was found in the ascending colon. The mass was partially circumferential (involving one-half of the lumen circumference). The mass measured four cm in length. No bleeding was present. Biopsies were taken with a cold forceps for histology. Verification of patient identification for the specimen was done by the physician and nurse using the patient's name and date. Area was tattooed with an injection of 4 mL of Spot (carbon black) two folds distal to the mass. A 6 mm polyp was found in the sigmoid colon. The polyp was sessile. The polyp was removed with a cold snare. Resection and retrieval were complete. Multiple small and large-mouthed diverticula were found in the sigmoid colon. Non-bleeding internal hemorrhoids were found during retroflexion. The hemorrhoids were medium-sized. Impression: - The examined portion of the ileum was normal. - Likely malignant tumor in the ascending colon. Biopsied. Tattooed. - One 6 mm polyp in the sigmoid colon, removed with a cold snare. Resected and retrieved. - Diverticulosis in the sigmoid colon. - Non-bleeding internal hemorrhoids. Recommendation: - [facility]. - Await pathology results. - Refer to a surgeon today for resection. - Obtain CT scan chest, abdomen and pelvis for staging. - Repeat colonoscopy in 1 year for surveillance after resection. Pawel Guerrier MD 10/19/2018 4:20:37 PM This report has been signed electronically. Note Initiated On: 10/19/2018 3:35 PM Number of Addenda: 0 I attest to the content of the Intraoperative Record and orders documented therein, exceptions below {[id number]}
--- NOTE | 2018-10-19 18:35 | Hospitalist Progress Note ---
Date of Service October 19, 2018 Assessment & Plan (1) Dizziness: (2) Microcytic hypochromic anemia: (3) Lactic acidosis: Patient is an 88-year-old female with H/O HTN,migraines, postherpetic neuralgia and other problems who presents with dizziness and shortness of breath x1 day. Symptomatic anemia Possible chronic blood loss anemia ABD USD:No cholelithiasis or biliary ductal dilatation. No evidence of cholecystitis. Hyperechogenic and heterogeneous liver parenchyma could indicate underlying fibrosis or steatosis. S/P EGD: Normal esophagus. Erythematous mucosa in the antrum. Biopsied. Normal duodenal bulb and second portion of the duodenum. Biopsied. S/P Colonoscopy:-The examined portion of the ileum was normal. Likely malignant tumor in the ascending colon. Biopsied. Tattooed. One 6 mm polyp in the sigmoid colon, removed with a cold snare. Resected and retrieved. Diverticulosis in the sigmoid colon. Non-bleeding internal hemorrhoids. --Anemia work up pending --S/P 2 units PRBCs --Appreciate GI help --Monitor H&H and transfuse PRBCs PRN --Aspirin held Malignant tumor of the ascending colon Incidentally found on colonoscopy CT chest abdomen for screening Surgery consulted (4) Atrial fibrillation with RVR: Transient A. fib RVR Volume overload likely secondary to A. fib RVR Likely secondary to symptomatic anemia Converted to Sinus Continue Metoprolol Monitor on telemetry Consider anticoagulation if recurrence Need cardiology evaluation as outpatient (5) Elevated LFTs: Abdominal ultrasound suggestive of hepatic fibrosis or steatosis Monitor (6) HTN (hypertension): On metoprolol (7) Post herpetic neuralgia: Was taking prn ibuprofen at home complains of pain being persistent and affecting QOL Monitor (8) DVT prophylaxis: SCD/TEDS Re: anemia Code Status Full Code Disposition: PT/OT prior to discharge Subjective Patient is seen and examined at bedside Had EGD and colonoscopy this morning Denies any chest pain, shortness of breath, dizziness, nausea, abdominal pain Palpitations resolved Family at bedside Review of Systems Review of Systems: All systems reviewed & are unremarkable except as noted in HPI & below Physical Exam Physical Exam: Physical Exam: Vitals signs as noted above General Appearance:Thin, no apparent distress Head: normocephalic, Atraumatic Eyes: normal inspection, EOMI Neck: supple, Trachea midline Respiratory/Chest: Normal breath sounds, CTA Cardiovascular: S1, S2, No murmur Abdomen/GI:Soft, Non tender, Bowel sounds present Extremities/Musculoskelatal:normal inspection, LE edema Neurologic/Psych:AAOX3, grossly no focal neurological deficits Skin: normal color, warm Results & Data Vital Signs (Past 12 Hours) Vital Signs Temp Pulse Pulse Resp BP BP Pulse Ox 10/19/18 16:27 72 18 108/49 L 98 10/19/18 16:12 71 16 100/44 L 99 10/19/18 14:49 37.1 C 78 20 138/74 94 10/19/18 10:45 36.9 C 69 20 123/60 94 Laboratory Results Short CBC 10/18/18 10/18/18 10/19/18 Range/Units 18:31 23:37 05:39 WBC 6.88 (4.8-10.8) K/uL Hgb 6.6 L* 8.0 L 7.3 L (12.0-16.0) g/dL Hct 23.6 L 27.0 L 25.0 L (37-47) % Plt Count 235 (130-400) K/uL BMP 10/18/18 10/19/18 23:37 05:39 Sodium 139 141 Potassium 3.6 4.0 Chloride 105 109 H Carbon Dioxide 25 26 BUN 17 16 Creatinine 0.90 0.86 Glucose 107 H 92 Calcium 8.4 L 8.3 L Liver Function 10/18/18 10/19/18 Range/Units 23:37 05:39 Total Bilirubin 1.6 H D 1.5 H (0.2-1) mg/dl AST 270 H 171 H (15-37) U/L ALT 209 H 169 H (12-78) U/L Alkaline Phosphatase 136 H 128 H (45-117) U/L Albumin 3.3 L 3.1 L (3.4-5.0) gm/dl Urine 10/18/18 Range/Units 18:26 Urine Color Yellow Urine Appearance Clear (Clear) Urine pH 5.5 (4.5-7.5) Ur Specific [place] 1.019 (1.000-1.030) Urine Protein Negative (Negative) Urine Glucose (UA) Negative (Negative)
[2018-10-19 20:30] LABS: Hematocrit (blood only) 25.4 % (37-47); Hemoglobin 7.4 g/dL (12.0-16.0)
[2018-10-19] MEDS ORDERED: IOVERSOL 100ml IV PRN (21:17)
--- NOTE | 2018-10-19 21:36 | CT Scan Report ---
CT OF THE CHEST WITH IV CONTRAST CLINICAL HISTORY: Colon cancer. Evaluate for metastases. COMPARISON STUDY: Chest radiograph October 18, 2018. TECHNIQUE: Following IV administration of 92 mL of Optiray-320, helical axial images of the chest we re obtained. Sagittal and coronal reconstructions were viewed as well as maximal intensity projectio ns on an independent 3-D workstation. Automated exposure control was utilized for the study. A dose lowering technique was utilized adhering to the principles of ALARA. FINDINGS: No enlarged axillary, mediastinal or hilar lymph nodes are present. There are multiple tin y thyroid nodules. The heart is moderately enlarged. There is no pericardial effusion. There are smal l bilateral pleural effusions with associated atelectasis. Lungs are suboptimally assessed due to res piratory motion. There is mild biapical scarring. Interlobular septal thickening is noted. No suspici ous osseous lesions are noted. The abdomen and pelvis will be reported separately. IMPRESSION: 1. No evidence of metastatic disease within the chest. 2. Moderate cardiomegaly. Mild interstitial pulmonary edema with small bilateral pleural effusions. Electronically signed by: Cam Phelps M.D. 10/19/2018 9:35 PM
--- NOTE | 2018-10-19 21:44 | CT Scan Report ---
CT OF THE ABDOMEN AND PELVIS WITH CONTRAST CLINICAL HISTORY: Colon cancer. Evaluate for metastatic disease. COMPARISON STUDY: Right upper quadrant ultrasound October 18, 2018. TECHNIQUE: Following IV administration of 92 mL of Optiray-320, axial images of the abdomen and pelvi s were obtained from the lung bases to the proximal femurs. Images were reviewed in the axial, sagitt al, and coronal planes. IV contrast was administered without complication. Automated exposure contro l was utilized for the study. A dose lowering technique was utilized adhering to the principles of A RAKAN. Oral contrast was administered. CT DOSE: 418.29 mGy.cm FINDINGS: The chest will be reported separately. There are small bilateral pleural effusions with car diomegaly and interlobular septal thickening. There is periportal edema and gallbladder wall thickeni ng, a nonspecific finding. The gallbladder is not distended. No hepatic lesions are present. The sple en, adrenal glands, pancreas and kidneys are unremarkable. There is no evidence for a bowel obstructi on. There is wall thickening of the mid a sending colon. There is no bowel obstruction. No enlarged a bdominal or pelvic lymph nodes are present. Sigmoid diverticulosis is noted without evidence for acut e diverticulitis. A 6.1 cm cystic left adnexal lesion is noted. This measures just above water attenu ation. No suspicious osseous lesions are noted. IMPRESSION: 1. Wall thickening of the mid ascending colon which represents the known primary tumor. No evidence o f metastatic disease within the abdomen or pelvis. Trace pericolonic fluid adjacent to the distal asc ending colon. 2. 6.1 cm cystic left adnexal lesion. Although this may reflect a cyst, this is considered pathologic in a postmenopausal patient and a follow-up nonemergent pelvic ultrasound is recommended to evaluate for complexity. 3. No bowel obstruction. Sigmoid diverticulosis without evidence for acute diverticulitis. 4. Gallbladder wall thickening, a nonspecific finding. No gallbladder distention. Electronically signed by: Cam Phelps M.D. 10/19/2018 9:43 PM
[2018-10-20 06:52] LABS: Hematocrit (blood only) 25.5 % (37-47); Hemoglobin 7.4 g/dL (12.0-16.0)
[2018-10-20 07:19] LABS: BUN Creatinine Ratio 14.6 (10-20); Calcium 8.1 mg/dl (8.5-10.1); Creatinine Clr Calc Pharmacy 40.6 ml/min; Est GFR (African American) 83.7; Est GFR (Non-African American) 72.2; Potassium 3.7 mmol/L (3.5-5.1)
[2018-10-20] MEDS: METOPROLOL TARTRATE 25 MG TAB PO SCH ×3 (08:46→20:36)
--- NOTE | 2018-10-20 14:33 | Surgery Consultation ---
Date of Consultation October 20, 2018 Assessment & Plan (1) Colonic mass: This is an 88y F who on admission was found to have a colonic mass after colonoscopy for evaluation of anemia. Would recommend patient remain hospitalized over weekend and monitor CBC for H/H Okay to have full liquid diet Will await pathology results from colonoscopy. Will tentatively plan for surgical intervention early next week (?maybe Monday) for a right hemicolectomy pending path results. Medicine to pre-op patient Can add on CEA to tomorrow's labs Patient seen and examined with Dr. Fairchild History of Present Illness Attending Physician: Oswald Page MD History of Present Illness This is an 88y F with a PMH of afib, HTN, and recent bout of shingles who presents to [facility] on 10/18/18 with complaints of dizziness and heart palpitations. Patient states that ever since her bout of shingles she has been tiring easily. On admission she was found to be in afib and anemic with a Hbg of 5.6. For her anemia she was transfused pRBC and GI was consulted for further evaluation. She underwent a colonoscopy on 10/19 which revealed concern for malignant tumor in the ascending colon (biopsied) and a 6mm polyp in the sigmoid colon (removed). Surgery was consulted thereafter for evaluation. Today patient endorses no abdominal pain or nausea/vomiting. Her Hbg is 7.4. Allergies Allergy/AdvReac Type Severity Reaction Status Date / Time amoxicillin AdvReac Intermediate Rash Unverified 10/18/18 13:53 diphenhydramine AdvReac Intermediate Rash Unverified 10/18/18 13:53 [From Benadryl] Penicillins AdvReac Intermediate Severe Rash Unverified 10/18/18 13:53 Home Medications Home Medications Medication Instructions Recorded Confirmed Type aspirin 81 mg PO BID 10/18/18 10/18/18 History ibuprofen 200 mg PO Q6H PRN 10/18/18 10/18/18 History metoprolol tartrate 25 mg PO BID 10/18/18 10/18/18 History Patient History Medical History Migraine HTN (hypertension) History of tooth extraction History of shingles Afib Anemia Surgical History History of colonoscopy Social History Preferred Language: Amharic Communication Ability: Effective 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 Beliefs That Will Affect Care: None Current Living Situation: Family Current Living Situation Comment: Lives with granddaugther and great grandchild Other Information That Helps Us Care for You: No Feels Safe at Home: Yes Safety Concerns: Feels Safe At This Time Smoking Status: Former smoker Age Quit Using Tobacco: 32 ; Smoking End Date: 50 years ; Number of Years Since Quit: 50 ; Hx Alcohol Use: No Hx Substance Use: No Review of Systems Constitutional: + fatigue pain from shingles Gastrointestinal: no abdominal pain, no nausea and no vomiting Physical Exam Physical Exam: awake, sitting up in bed with visitors at bedside Constitutional: well developed and well nourished; no acute distress Respiratory: normal respiratory effort; no respiratory distress Gastrointestinal (Abdomen): Inspection/Auscultation: abdomen normal to inspection Results & Data Vital Signs (Past 12 Hours) Vital Signs Temp Pulse Resp BP Pulse Ox 10/20/18 11:10 36.7 C 68 16 144/64 H 98 10/20/18 07:07 37.2 C 75 19 137/66 96 10/20/18 05:29 37.0 C 79 14 135/51 L 96 Patient Name: Brittanie Mae Procedure Date: 10/19/2018 3:35 PM Date of : 1930 Admit Type: Inpatient Age: 88 Gender: Female Attending MD: Pawel Guerrier MD Procedure: Colonoscopy Providers: Pawel Guerrier MD Referring MD: Kathleen Sauer Pa-c, Oswald Page Md Indications: Iron deficiency anemia Medicines: Monitored Anesthesia Care Complications: No immediate complications. Estimated Blood Loss: Estimated blood loss: none. Procedure: Pre-Anesthesia Assessment: - Prior to the procedure, a History and Physical was performed, and patient medications and allergies were reviewed. The patient is competent. The risks and benefits of the procedure and the sedation options and risks were discussed with the patient. All questions were answered and informed consent was obtained. Patient identification and proposed procedure were verified by the physician and the nurse in the procedure room. Mental Status Examination: alert and oriented. Airway Examination: normal oropharyngeal airway and neck mobility. Respiratory Examination: clear to auscultation. CV Examination: normal. ASA Grade Assessment: III - A patient with severe systemic disease. After reviewing the risks and benefits, the patient was deemed in satisfactory condition to undergo the procedure. The anesthesia plan was to use monitored anesthesia care (MAC). Immediately prior to administration of medications, the patient was re-assessed for adequacy to receive sedatives. The heart rate, respiratory rate, oxygen saturations, blood pressure, adequacy of pulmonary ventilation, and response to care were monitored throughout the procedure. The physical status of the patient was re-assessed after the procedure. After I obtained informed consent, the scope was passed under direct vision. Throughout the procedure, the patient's blood pressure, pulse, and oxygen saturations were monitored continuously. The scope was introduced through the anus and advanced to the terminal ileum. The colonoscopy was performed without difficulty. The patient tolerated the procedure well. The quality of the bowel preparation was good. The terminal ileum, ileocecal valve, appendiceal orifice, and rectum were photographed. Findings: The perianal and digital rectal examinations were normal. The terminal ileum appeared normal. A fungating, infiltrative and ulcerated non-obstructing large mass was found in the ascending colon. The mass was partially circumferential (involving one-half of the lumen circumference). The mass measured four cm in length. No bleeding was present. Biopsies were taken with a cold forceps for histology. Verification of patient identification for the specimen was done by the physician and nurse using the patient's name and date. Area was tattooed with an injection of 4 mL of Spot (carbon black) two folds distal to the mass. A 6 mm polyp was found in the sigmoid colon. The polyp was sessile. The polyp was removed with a cold snare. Resection and retrieval were complete. Multiple small and large-mouthed diverticula were found in the sigmoid colon. Non-bleeding internal hemorrhoids were found during retroflexion. The hemorrhoids were medium-sized. Impression: - The examined portion of the ileum was normal. - Likely malignant tumor in the ascending colon. Biopsied. Tattooed. - One 6 mm polyp in the sigmoid colon, removed with a cold snare. Resected and retrieved. - Diverticulosis in the sigmoid colon. - Non-bleeding internal hemorrhoids. Recommendation: - [facility]. - Await pathology results. - Refer to a surgeon today for resection. - Obtain CT scan chest, abdomen and pelvis for staging. - Repeat colonoscopy in 1 year for surveillance after resection. Pawel Guerrier MD 10/19/2018 4:20:37 PM PG Care Time/CCT Total # of Minutes Spent Total Time Spent with Patient: Total time spent is greater than 50% in coordination of care (as documented) at patient's floor/unit and/or counseling patient:
--- NOTE | 2018-10-20 17:19 | Hospitalist Progress Note ---
Date of Service October 20, 2018 Assessment & Plan (1) Dizziness: (2) Microcytic hypochromic anemia: (3) Lactic acidosis: Patient is an 88-year-old female with H/O HTN,migraines, postherpetic neuralgia and other problems who presents with dizziness and shortness of breath x1 day. Symptomatic anemia Possible chronic blood loss anemia due to ? colon cancer ABD USD:No cholelithiasis or biliary ductal dilatation. No evidence of cholecystitis. Hyperechogenic and heterogeneous liver parenchyma could indicate underlying fibrosis or steatosis. S/P EGD: Normal esophagus. Erythematous mucosa in the antrum. Biopsied. Normal duodenal bulb and second portion of the duodenum. Biopsied. S/P Colonoscopy:-The examined portion of the ileum was normal. Likely malignant tumor in the ascending colon. Biopsied. Tattooed. One 6 mm polyp in the sigmoid colon, removed with a cold snare. Resected and retrieved. Diverticulosis in the sigmoid colon. Non-bleeding internal hemorrhoids. --Anemia work up: Iron deficiency anemia --S/P 2 units PRBCs --Appreciate GI help --Monitor H&H and transfuse PRBCs PRN --Aspirin held Malignant tumor of the ascending colon Noted on colonoscopy --CT chest:No evidence of metastatic disease within the chest. Moderate cardiomegaly. Mild interstitial pulmonary edema with small bilateral pleural effusions. --CT abdomen:Wall thickening of the mid ascending colon which represents the known primary tumor. No evidence of metastatic disease within the abdomen or pelvis. Trace pericolonic fluid adjacent to the distal ascending colon. 6.1 cm cystic left adnexal lesion. Although this may reflect a cyst, this is considered pathologic in a postmenopausal patient and a follow-up nonemergent pelvic ultrasound is recommended to evaluate for complexity. No bowel obstruction. Sigmoid diverticulosis without evidence for acute diverticulitis. Gallbladder wall thickening, a nonspecific finding. No gallbladder distention. --CEA: pending Appreciate Surgery Input Possible surgical intervention--right hemicolectomy next week (4) Atrial fibrillation with RVR: Transient A. fib RVR Volume overload likely secondary to A. fib RVR Likely secondary to symptomatic anemia Converted to Sinus Continue Metoprolol 25 mg BID Monitor on telemetry Consider anticoagulation if recurrence--currently high risk secondary to symptomatic anemia Need cardiology evaluation as outpatient (5) Elevated LFTs: Abdominal ultrasound suggestive of hepatic fibrosis or steatosis Monitor (6) HTN (hypertension): On metoprolol (7) Post herpetic neuralgia: Was taking prn ibuprofen at home complains of pain being persistent and affecting QOL Monitor (8) DVT prophylaxis: SCD/TEDS Re: anemia Code Status Full Code Disposition: PT/OT prior to discharge Subjective Patient is seen and examined at bedside Feels discouraged secondary to diagnosis of possible colon cancer Denies any bleeding issues Plan for possible right hemicolectomy next week Denies any chest pain, shortness of breath, dizziness, nausea, abdominal pain Remains in sinus Review of Systems Review of Systems: All systems reviewed & are unremarkable except as noted in HPI & below Physical Exam Physical Exam: Physical Exam: Vitals signs as noted above General Appearance:Thin, no apparent distress Head: normocephalic, Atraumatic Eyes: normal inspection, EOMI Neck: supple, Trachea midline Respiratory/Chest: Normal breath sounds, CTA Cardiovascular: S1, S2, No murmur Abdomen/GI:Soft, Non tender, Bowel sounds present Extremities/Musculoskelatal:normal inspection, LE edema Neurologic/Psych:AAOX3, grossly no focal neurological deficits Skin: normal color, warm Results & Data Vital Signs (Past 12 Hours) Vital Signs Temp Pulse Resp BP Pulse Ox 10/20/18 15:16 36.8 C 69 17 152/70 H 96 10/20/18 11:10 36.7 C 68 16 144/64 H 98 10/20/18 07:07 37.2 C 75 19 137/66 96 10/20/18 05:29 37.0 C 79 14 135/51 L 96 Laboratory Results Short CBC 10/19/18 10/20/18 Range/Units 20:10 06:31 Hgb 7.4 L 7.4 L (12.0-16.0) g/dL Hct 25.4 L 25.5 L (37-47) % BMP 10/20/18 06:31 Sodium 139 Potassium 3.7 Chloride 108 H Carbon Dioxide 26 BUN 11 Creatinine 0.75 Glucose 82 Calcium 8.1 L
[2018-10-21 06:54] LABS: Hematocrit (blood only) 26.5 % (37-47); Hemoglobin 7.6 g/dL (12.0-16.0)
[2018-10-21] MEDS: METOPROLOL TARTRATE 25 MG TAB PO SCH ×2 (08:37→20:54)
--- NOTE | 2018-10-21 08:50 | Surgery Progress Note ---
Date of Service October 21, 2018 Assessment & Plan (1) Colonic mass: await pathology on descending polyp, planning surgery for Monday likely to remove ovary at that time, Dr. Fairchild discussed the CT finding with her keep on full liquids Subjective tolerating full liquids Physical Exam Gastrointestinal (Abdomen): Inspection/Auscultation: abdomen not distended Percussion/Palpation: abdomen soft Results & Data Vital Signs (Past 12 Hours) Vital Signs Temp Pulse Resp BP Pulse Ox 10/21/18 07:40 36.7 C 74 15 156/74 H 96 10/21/18 02:43 37.1 C 62 16 131/64 97 10/20/18 23:44 37.1 C 66 16 132/63 97 PG Care Time/CCT Total # of Minutes Spent Total Time Spent with Patient: Total time spent is greater than 50% in coordination of care (as documented) at patient's floor/unit and/or counseling patient:
--- NOTE | 2018-10-21 18:41 | Hospitalist Progress Note ---
Date of Service October 21, 2018 Assessment & Plan (1) Dizziness: (2) Microcytic hypochromic anemia: (3) Lactic acidosis: Patient is an 88-year-old female with H/O HTN,migraines, postherpetic neuralgia and other problems who presents with dizziness and shortness of breath x1 day. Symptomatic anemia Possible chronic blood loss anemia due to ? colon cancer ABD USD:No cholelithiasis or biliary ductal dilatation. No evidence of cholecystitis. Hyperechogenic and heterogeneous liver parenchyma could indicate underlying fibrosis or steatosis. S/P EGD: Normal esophagus. Erythematous mucosa in the antrum. Biopsied. Normal duodenal bulb and second portion of the duodenum. Biopsied. S/P Colonoscopy:-The examined portion of the ileum was normal. Likely malignant tumor in the ascending colon. Biopsied. Tattooed. One 6 mm polyp in the sigmoid colon, removed with a cold snare. Resected and retrieved. Diverticulosis in the sigmoid colon. Non-bleeding internal hemorrhoids. --Anemia work up: Iron deficiency anemia --S/P 2 units PRBCs --Appreciate GI help --Monitor H&H and transfuse PRBCs PRN --Aspirin held --Hb 7.6 today Malignant tumor of the ascending colon Noted on colonoscopy --CT chest:No evidence of metastatic disease within the chest. Moderate cardiomegaly. Mild interstitial pulmonary edema with small bilateral pleural effusions. --CT abdomen:Wall thickening of the mid ascending colon which represents the known primary tumor. No evidence of metastatic disease within the abdomen or pelvis. Trace pericolonic fluid adjacent to the distal ascending colon. 6.1 cm cystic left adnexal lesion. Although this may reflect a cyst, this is considered pathologic in a postmenopausal patient and a follow-up nonemergent pelvic ultrasound is recommended to evaluate for complexity. No bowel obstruction. Sigmoid diverticulosis without evidence for acute diverticulitis. Gallbladder wall thickening, a nonspecific finding. No gallbladder distention. Pathology:pending --CEA:1.4 Appreciate Surgery Input Possible surgical intervention--Possible right hemicolectomy next week (4) Atrial fibrillation with RVR: Transient A. fib RVR Volume overload likely secondary to A. fib RVR Likely secondary to symptomatic anemia Converted to Sinus Continue Metoprolol 25 mg BID Monitor on telemetry Consider anticoagulation if recurrence--currently high risk secondary to symptomatic anemia Need cardiology evaluation as outpatient (5) Elevated LFTs: Abdominal ultrasound suggestive of hepatic fibrosis or steatosis Monitor (6) HTN (hypertension): On metoprolol (7) Post herpetic neuralgia: Was taking prn ibuprofen at home complains of pain being persistent and affecting QOL Monitor (8) DVT prophylaxis: SCD/TEDS Re: anemia Code Status Full Code Disposition: PT/OT prior to discharge Subjective Patient is seen and examined at bedside Complains of mild right lower quadrant abdominal pain Tolerating fluids Hemoglobin stable Offers no other complaints family at bedside Denies any chest pain, shortness of breath, dizziness, nausea Review of Systems Review of Systems: All systems reviewed & are unremarkable except as noted in HPI & below Physical Exam Physical Exam: Physical Exam: Vitals signs as noted above General Appearance:Thin, no apparent distress Head: normocephalic, Atraumatic Eyes: normal inspection, EOMI Neck: supple, Trachea midline Respiratory/Chest: Normal breath sounds, CTA Cardiovascular: S1, S2, No murmur Abdomen/GI:Soft, Non tender, Bowel sounds present Extremities/Musculoskelatal:normal inspection, LE edema Neurologic/Psych:AAOX3, grossly no focal neurological deficits Skin: normal color, warm Results & Data Vital Signs (Past 12 Hours) Vital Signs Temp Pulse Resp BP Pulse Ox 10/21/18 15:33 36.8 C 63 18 149/72 H 98 10/21/18 11:49 36.5 C 57 L 16 137/62 98 10/21/18 07:40 36.7 C 74 15 156/74 H 96 Laboratory Results Short CBC 10/21/18 Range/Units 06:10 Hgb 7.6 L (12.0-16.0) g/dL Hct 26.5 L (37-47) %
[2018-10-22 06:29] LABS: Hematocrit (blood only) 27.3 % (37-47); Hemoglobin 7.9 g/dL (12.0-16.0)
--- NOTE | 2018-10-22 08:21 | Surgery Progress Note ---
Date of Service October 22, 2018 Assessment & Plan (1) Colonic mass: Plan for colon resection, bilateral salpingo-oophorectomy tomorrow. Pathology pending on polyp, will review. Subjective no complaints Physical Exam Gastrointestinal (Abdomen): Inspection/Auscultation: abdomen not distended Percussion/Palpation: abdomen soft Results & Data Vital Signs (Past 12 Hours) Vital Signs Temp Pulse Pulse Resp BP Pulse Ox 10/22/18 08:00 59 L 10/22/18 07:18 37 C 62 16 145/67 H 96 10/22/18 03:43 36.8 C 67 18 125/68 97 10/22/18 00:00 58 L 10/21/18 22:54 36.9 C 66 12 144/68 H 98 PG Care Time/CCT Total # of Minutes Spent Total Time Spent with Patient: Total time spent is greater than 50% in coordination of care (as documented) at patient's floor/unit and/or counseling patient:
[2018-10-22] MEDS: METOPROLOL TARTRATE 25 MG TAB PO SCH ×2 (08:46→21:53)
--- NOTE | 2018-10-22 10:01 | Anesthesiology Progress Note ---
Date of Service October 22, 2018 Anesthesia Post Procedure Vital Signs Vital Signs: Temp Pulse Pulse Pulse Resp BP Pulse Ox 10/22/18 08:45 88 10/22/18 08:00 59 L 10/22/18 07:18 37 C 62 16 145/67 H 96 10/22/18 03:43 36.8 C 67 18 125/68 97 10/22/18 00:00 58 L 10/21/18 22:54 36.9 C 66 12 144/68 H 98 10/21/18 19:41 36.4 C L 66 18 124/58 L 96 10/21/18 15:33 36.8 C 63 18 149/72 H 98 10/21/18 11:49 36.5 C 57 L 16 137/62 98 Notes Mental Status: alert / awake / arousable and participated in evaluation Patient Amnestic to Procedure: Yes Nausea / Vomiting: adequately controlled Pain: adequately controlled Airway Patency, RR, SpO2: stable & adequate BP & HR: stable & adequate Hydration State: stable & adequate Anesthetic Complications: no major complications apparent
[2018-10-22] MEDS: NEOMYCIN SULFATE 500 MG TAB PO SCH ×3 (14:20→21:54)
[2018-10-22] MEDS: ERYTHROMYCIN ETHYLSUCCINATE 400 MG TAB PO SCH ×3 (14:21→21:53)
--- NOTE | 2018-10-22 18:02 | Hospitalist Progress Note ---
Date of Service October 22, 2018 Assessment & Plan (1) Dizziness: (2) Microcytic hypochromic anemia: (3) Lactic acidosis: Patient is an 88-year-old female with H/O HTN,migraines, postherpetic neuralgia and other problems who presents with dizziness and shortness of breath x1 day. Symptomatic anemia Possible chronic blood loss anemia due to ? colon cancer ABD USD:No cholelithiasis or biliary ductal dilatation. No evidence of cholecystitis. Hyperechogenic and heterogeneous liver parenchyma could indicate underlying fibrosis or steatosis. S/P EGD: Normal esophagus. Erythematous mucosa in the antrum. Biopsied. Normal duodenal bulb and second portion of the duodenum. Biopsied. S/P Colonoscopy:-The examined portion of the ileum was normal. Likely malignant tumor in the ascending colon. Biopsied. Tattooed. One 6 mm polyp in the sigmoid colon, removed with a cold snare. Resected and retrieved. Diverticulosis in the sigmoid colon. Non-bleeding internal hemorrhoids. --Anemia work up: Iron deficiency anemia --S/P 2 units PRBCs --Appreciate GI help --Monitor H&H and transfuse PRBCs PRN --Aspirin held --Hb 7.9 today --Symptomatically improved Malignant tumor of the ascending colon Noted on colonoscopy --CT chest:No evidence of metastatic disease within the chest. Moderate cardiomegaly. Mild interstitial pulmonary edema with small bilateral pleural effusions. --CT abdomen:Wall thickening of the mid ascending colon which represents the known primary tumor. No evidence of metastatic disease within the abdomen or pelvis. Trace pericolonic fluid adjacent to the distal ascending colon. 6.1 cm cystic left adnexal lesion. Although this may reflect a cyst, this is considered pathologic in a postmenopausal patient and a follow-up nonemergent pelvic ultrasound is recommended to evaluate for complexity. No bowel obstruction. Sigmoid diverticulosis without evidence for acute diverticulitis. Gallbladder wall thickening, a nonspecific finding. No gallbladder distention. Pathology:pending --CEA:1.4 Appreciate Surgery Input Planned for Surgery Tomorrow (4) Atrial fibrillation with RVR: Transient A. fib RVR Volume overload likely secondary to A. fib RVR Likely secondary to symptomatic anemia Converted to Sinus--remains in sinus Continue Metoprolol 25 mg BID Monitor on telemetry Consider anticoagulation if recurrence--currently high risk secondary to symptomatic anemia Need cardiology evaluation as outpatient (5) Elevated LFTs: Abdominal ultrasound suggestive of hepatic fibrosis or steatosis Monitor (6) HTN (hypertension): On metoprolol (7) Post herpetic neuralgia: Was taking prn ibuprofen at home complains of pain being persistent and affecting QOL Monitor (8) DVT prophylaxis: SCD/TEDS Re: anemia Code Status Full Code Disposition: PT/OT prior to discharge Subjective Patient is seen and examined at bedside Abdominal pain resolved No new complaints Plan for surgery tomorrow Family at bedside Denies any chest pain, SOB, dizziness, nausea Review of Systems Review of Systems: All systems reviewed & are unremarkable except as noted in HPI & below Physical Exam Physical Exam: Physical Exam: Vitals signs as noted above General Appearance:Thin, no apparent distress Head: normocephalic, Atraumatic Eyes: normal inspection, EOMI Neck: supple, Trachea midline Respiratory/Chest: Normal breath sounds, CTA Cardiovascular: S1, S2, No murmur Abdomen/GI:Soft, Non tender, Bowel sounds present Extremities/Musculoskelatal:normal inspection, LE edema Neurologic/Psych:AAOX3, grossly no focal neurological deficits Skin: normal color, warm Results & Data Vital Signs (Past 12 Hours) Vital Signs Temp Pulse Pulse Pulse Resp BP BP 10/22/18 15:48 36.6 C 70 17 156/68 H 10/22/18 11:19 37 C 61 18 133/54 L 10/22/18 08:45 88 10/22/18 08:00 59 L 10/22/18 07:18 37 C 62 16 145/67 H Pulse Ox 10/22/18 15:48 98 10/22/18 11:19 98 10/22/18 08:45 10/22/18 08:00 10/22/18 07:18 96 Laboratory Results Short CBC 10/22/18 Range/Units 05:53 Hgb 7.9 L (12.0-16.0) g/dL Hct 27.3 L (37-47) %
[2018-10-23 06:20] LABS: Hematocrit (blood only) 27.9 % (37-47); Hemoglobin 8.1 g/dL (12.0-16.0)
[2018-10-23 06:50] LABS: BUN Creatinine Ratio 11.6 (10-20); Calcium 8.5 mg/dl (8.5-10.1); Creatinine Clr Calc Pharmacy 42.3 ml/min; Est GFR (African American) 87.9; Est GFR (Non-African American) 75.8; Potassium 3.9 mmol/L (3.5-5.1)
[2018-10-23] MEDS: METOPROLOL TARTRATE 25 MG TAB PO SCH ×2 (08:17→20:48)
[2018-10-23] MEDS ORDERED: PROPOFOL IV EMULSION 10 MG/ML 20 ML VIAL IV ONE ×3 (11:39→12:05)
[2018-10-23] MEDS ORDERED: ROCURONIUM BROMIDE 10 MG/ML 5 ML VIAL ONE (11:39)
[2018-10-23] MEDS ORDERED: NEOSTIGMINE METHYLSULFATE 5 MG/5 ML SYR ONE (11:39)
[2018-10-23] MEDS ORDERED: DEXAMETHASONE SOD INJ 4 MG/ML VIAL ONE (11:39)
[2018-10-23] MEDS ORDERED: LIDOCAINE HCL 2% 2 ML VIAL/AMP(20MG/ML) INFIL ONE (11:39)
[2018-10-23] MEDS ORDERED: ONDANSETRON INJ 2 MG/ML 2 ML VIAL ONE (11:39)
[2018-10-23] MEDS ORDERED: fentaNYL citrate 100 MCG/2 ML VIAL ONE (11:39)
[2018-10-23] MEDS ORDERED: GLYCOPYRROLATE 0.2 MG/ML VIAL ONE (11:39)
[2018-10-23] MEDS ORDERED: SODIUM CHLORIDE 0.9% 250 ML IV PRN (12:06)
--- NOTE | 2018-10-23 12:22 | Anesthesiology Consultation ---
Date of Service October 23, 2018 Assessment & Plan (1) Encounter for pre-operative examination: Chart Review Chart Review: Acceptable Risk for Surgery and Patient NOT seen in Pre Admission Testing Consults Requested none History Surgery Operation Date: 10/19/18 10:15 Proposed Procedures p Colonoscopy EGD Dr. Guerrier - Pawel Guerrier MD Operation Date: 10/23/18 12:40 Proposed Procedures p Colon Resection with - Manish Fairchild MD s Bilateral Salpingo-Oophorectomy - Manish Fairchild MD Height/Weight Height: 5 ft 1 in Weight: 54 kg Allergies Allergy/AdvReac Type Severity Reaction Status Date / Time amoxicillin AdvReac Intermediate Rash Unverified 10/18/18 13:53 diphenhydramine AdvReac Intermediate Rash Unverified 10/18/18 13:53 [From Benadryl] Penicillins AdvReac Intermediate Severe Rash Unverified 10/18/18 13:53 Medications Home Medications Medication Instructions Recorded Confirmed Last Taken aspirin 81 mg PO BID 10/18/18 10/18/18 10/18/18 ibuprofen 200 mg PO Q6H PRN 10/18/18 10/18/18 10/17/18 18:00 200mg metoprolol tartrate 25 mg PO BID 10/18/18 10/18/18 10/18/18 Active Medications Generic Name Dose Route Start Last Admin Trade Name Freq PRN Reason Stop Dose Admin Ioversol 92 ml 10/19/18 21:17 10/19/18 21:17 Optiray 320 100ml IV 10/23/18 21:16 92 ml ONCE PRN Administration Interaction Checking Metoprolol Tartrate 25 mg 10/20/18 21:00 10/23/18 08:17 Lopressor PO 11/19/18 20:59 25 mg BID JUDE Administration Polyethylene Glycol 17 gm 10/18/18 16:32 10/22/18 16:27 Miralax Powder Packet PO 11/17/18 16:31 17 gm DAILY PRN Administration Constipation NPO Date Last Intake of Fluids: 10/22/18 Time Last Intake of Fluids: 22:00 Last Intake of Fluids Comment: sip with meds Date Last Intake of Solids: 10/18/18 Time Last Intake of Solids: 10:00 Last Intake of Solids Comment: rice crispies Past Medical History Medical History Migraine HTN (hypertension) History of tooth extraction History of shingles Afib Anemia Past Surgical History Surgical History History of colonoscopy Social History Smoking Status: Former smoker Smoking End Date: 50 years Hx Alcohol Use: No Hx Substance Use: No Physical Exam Vital Signs Last Vital Signs Temp 36.7 C 10/23/18 12:14 Pulse 64 10/23/18 12:14 Resp 20 10/23/18 12:14 BP 157/67 H 10/23/18 12:14 Pulse Ox 98 10/23/18 12:14 Testing Laboratory Results 10/23/18 06:00 10/23/18 06:00 PT 11.2 Seconds (9.0-12.0) 10/18/18 13:13 INR 1.1 (0.9-1.1) 10/18/18 13:13 APTT 24.8 Seconds (21.0-31.0) 10/18/18 13:13 Urine Color Yellow 10/18/18 18:26 Urine Appearance Clear (Clear) 10/18/18 18:26 Urine pH 5.5 (4.5-7.5) 10/18/18 18:26 Ur Specific [place] 1.019 (1.000-1.030) 10/18/18 18:26 Urine Protein Negative (Negative) 10/18/18 18:26 Urine Glucose (UA) Negative (Negative) 10/18/18 18:26 Urine Ketones Negative (Negative) 10/18/18 18:26 Urine Nitrite Negative (Negative) 10/18/18 18:26 Ur Leukocyte Esterase Negative (Negative) 10/18/18 18:26 Blood Type O Positive 10/22/18 08:34 Antibody Screen NEGATIVE 10/22/18 08:34 Electrocardiogram Date: 10/20/18 Findings: + NSR @ (72) and + NSST changes Other Testing [facility], [place] [phone] CT Scan Report Patient: CHIOMA ABEBE Date: 10/18/18 MR#: [id number]: [address] Acct ID:[id number]: Date: 1930[facility] Zip: [place] [address] Age: 88Location: 2S Sex: F Room/Bed: [facility] Att Phy: Oswald Page, MDDiagnosis: NEW ONSET ANEMIA,AFIB WITH RVR Esha Phy: Kathleen Griffith-CService Date: 10/19/18 Fam Phy:Interpreting Phy: Cam Phelps MD Admit Phy: Ariel Nixon MD Ordering Phy: Charissa Nguyễn CRNP cc: ~ CT OF THE CHEST WITH IV CONTRAST CLINICAL HISTORY: Colon cancer. Evaluate for metastases. COMPARISON STUDY: Chest radiograph October 18, 2018. TECHNIQUE: Following IV administration of 92 mL of Optiray-320, helical axial images of the chest were obtained. Sagittal and coronal reconstructions were viewed as well as maximal intensity projections on an independent 3-D workstation. Automated exposure control was utilized for the study. A dose lowering technique was utilized adhering to the principles of ALARA. FINDINGS: No enlarged axillary, mediastinal or hilar lymph nodes are present. There are multiple tiny thyroid nodules. The heart is moderately enlarged. There is no pericardial effusion. There are small bilateral pleural effusions with associated atelectasis. Lungs are suboptimally assessed due to respiratory mo tion. There is mild biapical scarring. Interlobular septal thickening is noted. No suspicious osseous lesions are noted. The abdomen and pelvis will be reported separately. IMPRESSION: 1. No evidence of metastatic disease within the chest. 2. Moderate cardiomegaly. Mild interstitial pulmonary edema with small bilateral pleural effusions. Electronically signed by: Cam Phelps M.D. 10/19/2018 9:35 PM Dictated: 10/19/182126 Transcribed: 10/19/182126
--- NOTE | 2018-10-23 12:41 | History & Physical Bridge Note ---
Date of Service October 23, 2018 History & Physical Bridge Note I have examined the patient, reviewed the History & Physical and in the interval since the performance of the History & Physical I have noted the following changes of clinical significance: no changes noted neice at bedside path noted and pt marked
[2018-10-23] MEDS ORDERED: ALBUMIN HUMAN 5% 12.5 GM/250 ML VIAL IV ONE (12:43)
[2018-10-23] MEDS ORDERED: BUPIVACAINE 0.5 % 5 MG/1 ML MPF 30ML VIAL ONE (12:44)
[2018-10-23] MEDS ORDERED: PHENYLEPHRINE 100MCG/ML 5ML SYR IV PRN (12:49)
[2018-10-23] MEDS ORDERED: ONDANSETRON INJ 2 MG/ML 2 ML VIAL IV PRN (12:49)
[2018-10-23] MEDS ORDERED: LABETALOL HCL IV 5 MG/ML 20ML IV PRN (12:49)
[2018-10-23] MEDS ORDERED: ePHEDrine sulfate 50 MG/ML AMP IV PRN (12:49)
[2018-10-23] MEDS ORDERED: ATROPINE SULFATE 0.1 MG/ML 10ML SYR IV PRN (12:49)
--- NOTE | 2018-10-23 14:04 | Post Operative Brief Note ---
PG Immediate Post Op with CF Date of Surgery October 23, 2018 Pre & Post Diagnosis Operation Date: 10/19/18 10:15 Pre-Op Diagnosis: NEW ONSET ANEMIA,AFIB WITH RVR Post-Op Diagnosis: diverticulosis, ascending colon mass, Operation Date: 10/23/18 12:40 Pre-Op Diagnosis: malignant tumor of the ascending colon Post-Op Diagnosis: malignant tumor of the ascending colon Procedure Operation Date: 10/19/18 10:15 Actual Procedures p EGD Biopsy Cytology(Left) - Pawel Guerrier MD s Colonoscopy Biopsy Cytology(Left) - Pawel Guerrier MD Operation Date: 10/23/18 12:40 Actual Procedures p Right Radical Colectomy(Not Applicable) - Manish Fairchild MD s Bilateral Salpingo-Oophorectomy(Bilateral) - Manish Fairchild MD Surgeon Manish Fairchild MD Apartment Maintenance Worker B JOYCE HOGAN Estimated Blood Loss 30 Findings Consistent with Post-Op Diagnosis Specimens Specimen Description: Permanent: A. Radical Right Colectomy B. Right fallopian tube and ovary C. Left fallopian Tube and ovary Drains Rausch Catheter and Jonathan Drain
[2018-10-23] MEDS: fentaNYL citrate 100 MCG/2 ML VIAL IV PRN ×4 (14:34→14:49)
--- NOTE | 2018-10-23 14:36 | Operative Report ---
Post Operative Report Pre & Post Diagnosis Operation Date: 10/19/18 10:15 Pre-Op Diagnosis: NEW ONSET ANEMIA,AFIB WITH RVR Post-Op Diagnosis: diverticulosis, ascending colon mass, Operation Date: 10/23/18 12:40 Pre-Op Diagnosis: malignant tumor of the ascending colon Post-Op Diagnosis: malignant tumor of the ascending colon Procedure Operation Date: 10/19/18 10:15 Actual Procedures p EGD Biopsy Cytology(Left) - Pawel Guerrier MD s Colonoscopy Biopsy Cytology(Left) - Pawel Guerrier MD Operation Date: 10/23/18 12:40 Actual Procedures p Right Radical Colectomy(Right) - Manish Fairchild MD s Bilateral Salpingo-Oophorectomy(Bilateral) - Manish Fairchild MD The patient was brought into the operating theater supine position general endotracheal anesthesia the abdomen prepped with Betadine solution properly draped systemic antibiotics given timeout was had patient was identified made an incision approximately 8 cm long above and below the umbilicus deepened through subcutaneous tissue into the abdomen through the midline fascia ventrally abdomen is very mobile right colon transverse colon easily appreciated the tattoo which is spurred over the descending colon and also the mesentery despite using the abdominal wall Vandiver we were able then to palpate the lesion in the proximal hepatic area we divided the peritoneal attachment in the white line of [place] circumferentially elevated in the terminal ileum bringing the side of the circumferentially went around all 2 [address] to the right of the middle colic mesentery was easily appreciated and the vessels were identified we could identify the right colon and also identified the middle colic quite easily the duodenum similarly appreciated we then divided with a LUISITO stapler approximately 4 inches from the ileocecal valve and also divided right colon the transverse colon proximal to the middle colic with a LUISITO stapler we then scored the peritoneum on top of the mesentery and divided the mesentery with a right angle clamps then doubly ligating the right colon and artery and also some other tissue proximal to the middle colic we had marked the apical suture right on top of the duodenum. The 2 staple line was then brought together by first closing the mesentery with interrupted 3-0 silk suture to make sure there was no twist in the bowel to staple line on the terminal ileum and the colon were oversewn with 3-0 silk suture and a side to side anastomosis was done with 3-0 silk our layer 3-0 chromic interlayer stools were checked for patency appear satisfactory mesentery continue closed. Will return to this her normal anatomic position we checked the gallbladder could not palpate any stones did not appear acutely inflamed as the patient has had some elevated liver function test at the time our attention was then turned to the pelvic area where the patient had a 6 cm l eft ovarian cyst of unknown etiology of the splint elected to muscular the bilateral subsegmental due to the cancer right side was approached first there was no really residual ovarian tissue some March the inferior infundibulopelvic ligament divided ligated with 2-0 silk divided the ovarian attachment. The specimen was very small. The uterus appeared to be small we then turned our attention to the left side where a large cyst was appreciated with similar divided ligated anterior inferior pelvic ligament area. Satisfactory wound was then closed after repositioning the viscera normal anatomic position by using #1 PDS [id number] for the fascia Jonathan drain subcuticularly yanci for skin edges dressing estimate blood loss 30 cc addendum Debra Rogers was present the whole time and help that we exposure retraction wound closure Surgeon Manish Fairchild MD Trust Manager B JOYCE ROGERS Estimated Blood Loss 30 Findings Consistent with Post-Op Diagnosis Specimens right colon, BSO Description of Procedure teteda I attest to the content of the Intraoperative Record and any orders documented therein. Any exceptions are noted below.
[2018-10-23] MEDS: HYDROmorphone INJ 1 MG/ML SYRINGE IV PRN ×3 (15:05→15:15)
--- NOTE | 2018-10-23 15:38 | Anesthesiology Progress Note ---
Date of Service October 23, 2018 Anesthesia Post Procedure Vital Signs Vital Signs: Temp Pulse Pulse Pulse Pulse Resp BP 10/23/18 15:20 36.2 C L 61 18 10/23/18 15:10 60 14 10/23/18 15:00 59 L 12 10/23/18 14:50 57 L 20 10/23/18 14:40 55 L 20 10/23/18 14:30 63 14 10/23/18 14:20 36.4 C L 75 20 10/23/18 12:14 36.7 C 64 20 157/67 H 10/23/18 11:23 36.7 C 73 18 138/58 L 10/23/18 08:23 36.5 C 76 20 138/70 10/23/18 08:00 66 10/23/18 04:03 37.0 C 65 16 10/23/18 01:03 36.7 C 87 22 10/22/18 23:00 77 10/22/18 20:21 73 10/22/18 19:30 36.6 C 75 18 10/22/18 15:48 36.6 C 70 17 BP Pulse Ox 10/23/18 15:20 131/56 L 100 10/23/18 15:10 132/55 L 96 10/23/18 15:00 140/54 L 98 10/23/18 14:50 153/58 H 100 10/23/18 14:40 153/54 H 100 10/23/18 14:30 157/64 H 100 10/23/18 14:20 171/70 H 100 10/23/18 12:14 98 10/23/18 11:23 97 10/23/18 08:23 96 10/23/18 08:00 10/23/18 04:03 146/69 H 98 10/23/18 01:03 130/63 96 10/22/18 23:00 10/22/18 20:21 10/22/18 19:30 137/65 100 10/22/18 15:48 156/68 H 98 Pain Intensity Abdomen: Pain Intensity: 5 Transfer of Care Handoff Completed per policy Notes Mental Status: alert / awake / arousable and participated in evaluation Patient Amnestic to Procedure: Yes Nausea / Vomiting: adequately controlled Pain: adequately controlled Airway Patency, RR, SpO2: stable & adequate BP & HR: stable & adequate Hydration State: stable & adequate Anesthetic Complications: no major complications apparent and Pt Satisfied with anesthetic care
[2018-10-23] MEDS ORDERED: MoRPHine SULFATE 4 MG/ML 1 ML CARP\\VIAL IV PRN (15:57)
[2018-10-23] MEDS: LACTATED RINGER'S 1,000 ML IV SCH (16:01)
--- NOTE | 2018-10-23 17:27 | Hospitalist Progress Note ---
Date of Service October 23, 2018 Assessment & Plan (1) Dizziness: (2) Microcytic hypochromic anemia: (3) Lactic acidosis: Patient is an 88-year-old female with H/O HTN,migraines, postherpetic neuralgia and other problems who presents with dizziness and shortness of breath x1 day. Symptomatic anemia Possible chronic blood loss anemia due to ? colon cancer ABD USD:No cholelithiasis or biliary ductal dilatation. No evidence of cholecystitis. Hyperechogenic and heterogeneous liver parenchyma could indicate underlying fibrosis or steatosis. S/P EGD: Normal esophagus. Erythematous mucosa in the antrum. Biopsied. Normal duodenal bulb and second portion of the duodenum. Biopsied. S/P Colonoscopy:-The examined portion of the ileum was normal. Likely malignant tumor in the ascending colon. Biopsied. Tattooed. One 6 mm polyp in the sigmoid colon, removed with a cold snare. Resected and retrieved. Diverticulosis in the sigmoid colon. Non-bleeding internal hemorrhoids. --Anemia work up: Iron deficiency anemia --S/P 2 units PRBCs --Appreciate GI help --Monitor H&H and transfuse PRBCs PRN --Aspirin held --Hb 8.1 today --Symptomatically improved Malignant tumor of the ascending colon Noted on colonoscopy --CT chest:No evidence of metastatic disease within the chest. Moderate cardiomegaly. Mild interstitial pulmonary edema with small bilateral pleural effusions. --CT abdomen:Wall thickening of the mid ascending colon which represents the known primary tumor. No evidence of metastatic disease within the abdomen or pelvis. Trace pericolonic fluid adjacent to the distal ascending colon. 6.1 cm cystic left adnexal lesion. Although this may reflect a cyst, this is considered pathologic in a postmenopausal patient and a follow-up nonemergent pelvic ultrasound is recommended to evaluate for complexity. No bowel obstruction. Sigmoid diverticulosis without evidence for acute diverticulitis. Gallbladder wall thickening, a nonspecific finding. No gallbladder distention. EGD Pathology:Stomach Bx: Moderate to focally severe chronic active gastritis with focal intestinal metaplasia. Ascending colon Bx: Infiltrative adenocarcinoma --CEA:1.4 Appreciate Surgery Input Planned for colectomy and bilateral salpingo-oophorectomy today (4) Atrial fibrillation with RVR: Transient A. fib RVR Volume overload likely secondary to A. fib RVR Likely secondary to symptomatic anemia Converted to Sinus--remains in sinus Continue Metoprolol 25 mg BID Monitor on telemetry Consider anticoagulation if recurrence--currently high risk secondary to symptomatic anemia Need cardiology evaluation as outpatient (5) Elevated LFTs: Abdominal ultrasound suggestive of hepatic fibrosis or steatosis Monitor (6) HTN (hypertension): On metoprolol (7) Post herpetic neuralgia: Was taking prn ibuprofen at home complains of pain being persistent and affecting QOL Monitor (8) DVT prophylaxis: SCD/TEDS Re: anemia Code Status Full Code Disposition: PT/OT prior to discharge Subjective Patient is seen and examined at bedside No new complaints this morning Plan for colectomy and bilateral salpingo-oophorectomy today Family at bedside Denies any chest pain, SOB, dizziness, nausea Hb stable Review of Systems Review of Systems: All systems reviewed & are unremarkable except as noted in HPI & below Physical Exam Physical Exam: Physical Exam: Vitals signs as noted above General Appearance:Thin, no apparent distress Head: normocephalic, Atraumatic Eyes: normal inspection, EOMI Neck: supple, Trachea midline Respiratory/Chest: Normal breath sounds, CTA Cardiovascular: S1, S2, No murmur Abdomen/GI:Soft, Non tender, Bowel sounds present Extremities/Musculoskelatal:normal inspection, LE edema Neurologic/Psych:AAOX3, grossly no focal neurological deficits Skin: normal color, warm Results & Data Vital Signs (Past 12 Hours) Vital Signs Temp Pulse Pulse Pulse Resp BP BP 10/23/18 16:20 64 16 125/60 10/23/18 16:05 67 16 133/63 10/23/18 16:00 36.7 C 63 16 142/59 H 10/23/18 15:20 36.2 C L 61 18 131/56 L 10/23/18 15:10 60 14 132/55 L 10/23/18 15:00 59 L 12 140/54 L 10/23/18 14:50 57 L 20 153/58 H 10/23/18 14:40 55 L 20 153/54 H 10/23/18 14:35 71 16 130/58 L 10/23/18 14:30 63 14 157/64 H 10/23/18 14:20 36.4 C L 75 20 171/70 H 10/23/18 12:14 36.7 C 64 20 157/67 H 10/23/18 11:23 36.7 C 73 18 138/58 L 10/23/18 08:23 36.5 C 76 20 138/70 10/23/18 08:00 66 Pulse Ox 10/23/18 16:20 98 10/23/18 16:05 99 10/23/18 16:00 98 10/23/18 15:20 100 10/23/18 15:10 96 10/23/18 15:00 98 10/23/18 14:50 100 10/23/18 14:40 100 10/23/18 14:35 98 10/23/18 14:30 100 10/23/18 14:20 100 10/23/18 12:14 98 10/23/18 11:23 97 10/23/18 08:23 96 10/23/18 08:00 Laboratory Results Short CBC 10/23/18 Range/Units 06:00 Hgb 8.1 L (12.0-16.0) g/dL Hct 27.9 L (37-47) % BMP 10/23/18 06:00 Sodium 140 Potassium 3.9 Chloride 107 Carbon Dioxide 26 BUN 8 Creatinine 0.72 Glucose 88 Calcium 8.5
[2018-10-23] MEDS: MoRPHine SULFATE 2 MG/ML CARP IV PRN ×2 (18:09→20:57)
[2018-10-23] MEDS: HEPARIN SOD 5,000 UNIT/0.5 ML VIAL SQ SCH (20:48)
[2018-10-24] MEDS: MoRPHine SULFATE 2 MG/ML CARP IV PRN ×2 (01:59→11:53)
[2018-10-24] MEDS: LACTATED RINGER'S 1,000 ML IV SCH ×2 (04:56→18:16)
[2018-10-24 07:08] LABS: Hematocrit (blood only) 31.7 % (37-47); Hemoglobin 9.3 g/dL (12.0-16.0); Mean Corpuscular Hgb Conc 29.3 g/dL (32-36); Mean Corpuscular Volume 71.6 fL (80-100); Mean Platelet Volume 9.8 fL (7.4-10.4); Platelet Count 276 K/uL (130-400); RDW Coefficient of Variation 26.5 % (11.5-14.5); RDW Standard Deviation 67.2 fL (36.4-46.3); Red Blood Count 4.43 M/uL (4.2-5.4); White Blood Count 24.65 K/uL (4.8-10.8)
[2018-10-24 07:42] LABS: BUN Creatinine Ratio 21.7 (10-20); Calcium 8.8 mg/dl (8.5-10.1); Creatinine Clr Calc Pharmacy 39.6 ml/min; Est GFR (Non-African American) 69.9; Magnesium 2.1 mg/dl (1.8-2.4); Potassium 4.2 mmol/L (3.5-5.1)
--- NOTE | 2018-10-24 07:43 | Surgery Progress Note ---
Date of Service October 24, 2018 Assessment & Plan (1) Colonic mass: POD 1 right colectomy PRP pending will give 500 cc NSS bolus start clears seen with Dr. Fairchild Subjective feels weak this AM, pain control adequate, no nausea Physical Exam Gastrointestinal (Abdomen): Inspection/Auscultation: + abdominal surgical incision (minimal sherry drainage); abdomen not distended Percussion/Palpation: abdomen soft UOP 225 overnight Results & Data Vital Signs (Past 12 Hours) Vital Signs Temp Pulse Resp BP BP Pulse Ox 10/24/18 05:00 36.6 C 78 20 138/62 97 10/23/18 23:00 36.4 C L 75 18 166/71 H 98 PG Care Time/CCT Total # of Minutes Spent Total Time Spent with Patient: Total time spent is greater than 50% in coordination of care (as documented) at patient's floor/unit and/or counseling patient:
[2018-10-24] MEDS ORDERED: SODIUM CHLORIDE 0.9% 500 ML IV ONE (07:45)
[2018-10-24] MEDS: METOPROLOL TARTRATE 25 MG TAB PO SCH ×2 (07:53→20:25)
[2018-10-24] MEDS: HEPARIN SOD 5,000 UNIT/0.5 ML VIAL SQ SCH ×2 (07:53→20:25)
[2018-10-24] MEDS: ONDANSETRON INJ 2 MG/ML 2 ML VIAL IV PRN ×2 (08:37→11:54)
--- NOTE | 2018-10-24 09:56 | Anesthesiology Progress Note ---
Date of Service October 24, 2018 Anesthesia Post Procedure Vital Signs Vital Signs: Temp Pulse Pulse Pulse Pulse Resp BP 10/24/18 07:45 36.6 C 77 17 155/64 H 10/24/18 05:00 36.6 C 78 20 138/62 10/23/18 23:00 36.4 C L 75 18 10/23/18 19:23 36.9 C 69 16 10/23/18 18:15 36.6 C 69 18 10/23/18 17:40 36.7 C 85 17 10/23/18 17:10 36.7 C 66 18 10/23/18 16:40 36.6 C 66 18 10/23/18 16:20 64 16 10/23/18 16:05 67 16 10/23/18 16:00 36.7 C 63 63 16 10/23/18 15:20 36.2 C L 61 18 10/23/18 15:10 60 14 10/23/18 15:00 59 L 12 10/23/18 14:50 57 L 20 10/23/18 14:40 55 L 20 10/23/18 14:35 71 16 10/23/18 14:30 63 14 10/23/18 14:20 36.4 C L 75 20 10/23/18 12:14 36.7 C 64 20 157/67 H 10/23/18 11:23 36.7 C 73 18 138/58 L BP Pulse Ox 10/24/18 07:45 97 10/24/18 05:00 97 10/23/18 23:00 166/71 H 98 10/23/18 19:23 158/69 H 98 10/23/18 18:15 132/65 99 10/23/18 17:40 131/69 97 10/23/18 17:10 115/63 98 10/23/18 16:40 117/56 L 97 10/23/18 16:20 125/60 98 10/23/18 16:05 133/63 99 10/23/18 16:00 142/59 H 98 10/23/18 15:20 131/56 L 100 10/23/18 15:10 132/55 L 96 10/23/18 15:00 140/54 L 98 10/23/18 14:50 153/58 H 100 10/23/18 14:40 153/54 H 100 10/23/18 14:35 130/58 L 98 10/23/18 14:30 157/64 H 100 10/23/18 14:20 171/70 H 100 10/23/18 12:14 98 10/23/18 11:23 97 Pain Intensity Abdomen: Pain Intensity: 5 Notes Mental Status: alert / awake / arousable and participated in evaluation Patient Amnestic to Procedure: Yes Nausea / Vomiting: see Notes below Pain: adequately controlled Airway Patency, RR, SpO2: stable & adequate BP & HR: stable & adequate Hydration State: stable & adequate Anesthetic Complications: no major complications apparent and Pt Satisfied with anesthetic care
[2018-10-24 12:26] LABS: IgA Serum 265 mg/dL (20-320); Tis Trans IgA 1 U/mL (<4)
[2018-10-24] MEDS ORDERED: PROMETHAZINE HCL 12.5 MG in SODIUM CHLORIDE 0.9% 50 ML IV PRN (14:56)
--- NOTE | 2018-10-24 16:21 | Hospitalist Progress Note ---
Date of Service October 24, 2018 Assessment & Plan (1) Dizziness: (2) Microcytic hypochromic anemia: (3) Lactic acidosis: Patient is an 88-year-old female with H/O HTN,migraines, postherpetic neuralgia and other problems who presents with dizziness and shortness of breath x1 day. Symptomatic anemia Possible chronic blood loss anemia due to ? colon cancer ABD USD:No cholelithiasis or biliary ductal dilatation. No evidence of cholecystitis. Hyperechogenic and heterogeneous liver parenchyma could indicate underlying fibrosis or steatosis. S/P EGD: Normal esophagus. Erythematous mucosa in the antrum. Biopsied. Normal duodenal bulb and second portion of the duodenum. Biopsied. S/P Colonoscopy:-The examined portion of the ileum was normal. Likely malignant tumor in the ascending colon. Biopsied. Tattooed. One 6 mm polyp in the sigmoid colon, removed with a cold snare. Resected and retrieved. Diverticulosis in the sigmoid colon. Non-bleeding internal hemorrhoids. --Anemia work up: Iron deficiency anemia --S/P 2 units PRBCs --Appreciate GI help Malignant tumor of the ascending colon Noted on colonoscopy --CT chest:No evidence of metastatic disease within the chest. Moderate cardiomegaly. Mild interstitial pulmonary edema with small bilateral pleural effusions. --CT abdomen:Wall thickening of the mid ascending colon which represents the known primary tumor. No evidence of metastatic disease within the abdomen or pelvis. Trace pericolonic fluid adjacent to the distal ascending colon. 6.1 cm cystic left adnexal lesion. Although this may reflect a cyst, this is considered pathologic in a postmenopausal patient and a follow-up nonemergent pelvic ultrasound is recommended to evaluate for complexity. No bowel obstruction. Sigmoid diverticulosis without evidence for acute diverticulitis. Gallbladder wall thickening, a nonspecific finding. No gallbladder distention. EGD Pathology:Stomach Bx: Moderate to focally severe chronic active gastritis with focal intestinal metaplasia. Ascending colon Bx: Infiltrative adenocarcinoma --CEA:1.4 Appreciate Surgery Input s/p colectomy and bilateral salpingo-oophorectomy by Dr Fairchild on 10/23/18 POD # 1 recovering well post op surgery following closely (4) Atrial fibrillation with RVR: Transient A. fib RVR Volume overload likely secondary to A. fib RVR Likely secondary to symptomatic anemia Converted to Sinus--remains in sinus Continue Metoprolol 25 mg BID Monitor on telemetry pt remains in sinus rhythm short episode of atrial tachycardia noted , resolved spontaneously -pt remains asymptomatic cont tele monitoring (5) Elevated LFTs: Abdominal ultrasound suggestive of hepatic fibrosis or steatosis Monitor (6) HTN (hypertension): On metoprolol (7) Post herpetic neuralgia: (8) DVT prophylaxis: SCD/TEDS Re: anemia Code Status Full Code Disposition: cont tele monitoring PT/OT eval requested Subjective felt nauseaus this morning no vomiting , abdominal pain at surgical site remains minimum no fever or chills did not had much appetite this morning feels hungry after lunch , able to tolerate clear liq diet unable to pass any gas yet Review of Systems Review of Systems: All systems reviewed & are unremarkable except as noted in HPI & below Physical Exam Constitutional: + thin; no acute distress Eyes: PERRL, conjunctivae normal, anicteric sclerae ENMT: external ear and nose normal, oropharynx normal Neck: trachea midline, no thyromegaly Respiratory: normal respiratory effort, lungs clear to auscultation Cardiovascular: RRR, no murmur, no edema Gastrointestinal (Abdomen): Inspection/Auscultation: + abdomen abnormal to inspection (mid abdomen surgical incision site , bandgae present , no drain , ) and + abnormal bowel sounds (diminished ) Percussion/Palpation: + abdomen tender and abdomen soft Musculoskeletal: no cyanosis or clubbing, extremities motor strength 5/5 Skin: no rashes, warm and dry Neurologic: PERRL, EOMI, accommodation nl, no face palsy, no dysarthria Psychiatric: A+Ox3, euthymic affect Results & Data Vital Signs (Past 12 Hours) Vital Signs Temp Pulse Pulse Resp BP BP Pulse Ox 10/24/18 15:25 36.6 C 74 16 133/62 96 10/24/18 13:42 76 138/60 10/24/18 11:07 36.7 C 68 18 150/66 H 95 10/24/18 08:00 74 10/24/18 07:45 36.6 C 77 17 155/64 H 97 10/24/18 05:00 36.6 C 78 20 138/62 97
[2018-10-25] MEDS: MoRPHine SULFATE 2 MG/ML CARP IV PRN ×2 (00:28→23:32)
[2018-10-25] MEDS: LACTATED RINGER'S 1,000 ML IV SCH ×3 (02:10→19:30)
[2018-10-25 06:27] LABS: Basophils # (auto) 0.01 K/uL (0-0.2); Basophils % (auto) 0.1 %; Hematocrit (blood only) 29.3 % (37-47); Hemoglobin 8.5 g/dL (12.0-16.0); Immature Granulocytes # (auto) 0.04 K/uL (0.00-0.02); Immature Granulocytes % (auto) 0.2 %; Lymphocytes # (auto) 2.23 K/uL (1.2-3.4); Mean Corpuscular Hemoglobin 20.8 pg (25-34); Mean Corpuscular Volume 71.8 fL (80-100); Mean Platelet Volume 9.4 fL (7.4-10.4); Monocytes # (auto) 0.82 K/uL (0.11-0.59); Monocytes % (auto) 4.4 %; Neutrophils # (auto) 15.47 K/uL (1.4-6.5); Neutrophils % (auto) 83.3 %; Platelet Count 237 K/uL (130-400); RDW Coefficient of Variation 27.1 % (11.5-14.5); RDW Standard Deviation 68.5 fL (36.4-46.3); Red Blood Count 4.08 M/uL (4.2-5.4); White Blood Count 18.57 K/uL (4.8-10.8)
[2018-10-25 06:53] LABS: Anisocytosis Present; Hypochromasia Present
[2018-10-25 06:56] LABS: BUN Creatinine Ratio 22.7 (10-20); Calcium 8.4 mg/dl (8.5-10.1); Creatinine Clr Calc Pharmacy 44.2 ml/min; Est GFR (African American) 91.4; Est GFR (Non-African American) 78.8; Potassium 4.1 mmol/L (3.5-5.1)
--- NOTE | 2018-10-25 07:53 | Surgery Progress Note ---
Date of Service October 25, 2018 Assessment & Plan (1) Colonic mass: POD 2 right colectomy keep on clears for now, full liquids later today or tomorrow wants to keep lares for now decreased IVF to 80 from 125 Subjective didn't feel well after clears yesterday, better this AM, no flatus, OOB to chair Physical Exam Gastrointestinal (Abdomen): Inspection/Auscultation: + abdominal surgical incision (some dry drainage from sherry); abdomen not distended Percussion/Palpation: abdomen soft UOP 250 overnight Results & Data Vital Signs (Past 12 Hours) Vital Signs Temp Pulse Resp BP BP Pulse Ox 10/25/18 03:00 36.7 C 70 18 126/57 L 96 10/24/18 23:00 36.5 C 81 18 146/48 H 95 10/24/18 19:51 36.6 C 73 16 131/57 L 98 PG Care Time/CCT Total # of Minutes Spent Total Time Spent with Patient: Total time spent is greater than 50% in coordination of care (as documented) at patient's floor/unit and/or counseling patient:
[2018-10-25] MEDS: HEPARIN SOD 5,000 UNIT/0.5 ML VIAL SQ SCH ×2 (08:29→19:51)
[2018-10-25] MEDS: METOPROLOL TARTRATE 25 MG TAB PO SCH ×2 (08:29→19:51)
--- NOTE | 2018-10-25 17:47 | Hospitalist Progress Note ---
Date of Service October 25, 2018 Assessment & Plan (1) Malignant tumor of ascending colon: Malignant tumor of the ascending colon Patient presented with with symptomatic microcytic anemia This post colonoscopy --CT chest:No evidence of metastatic disease within the chest. Moderate cardiome lea. Mild interstitial pulmonary edema with small bilateral pleural effusions. --CT abdomen:Wall thickening of the mid ascending colon which represents the known primary tumor. No evidence of metastatic disease within the abdomen or pelvis. Trace pericolonic fluid adjacent to the distal ascending colon. 6.1 cm cystic left adnexal lesion. Although this may reflect a cyst, this is considered pathologic in a postmenopausal patient and a follow-up nonemergent pelvic ultrasound is recommended to evaluate for complexity. No bowel obstruction. Sigmoid diverticulosis without evidence for acute diverticulitis. Gallbladder wall thickening, a nonspecific finding. No gallbladder distention. EGD Pathology:Stomach Bx: Moderate to focally severe chronic active gastritis with focal intestinal metaplasia. Pathology of ascending colon Bx: Infiltrative adenocarcinoma --CEA:1.4 Appreciate Surgery Input s/p colectomy and bilateral salpingo-oophorectomy by Dr Fairchild on 10/23/18 Recovering well postop, diet advanced to clears, tolerating well, has normal bowel sounds, plan for advance diet to full liquid tomorrow morning (2) Dizziness: Possible secondary to anemia, symptoms is completely resolved (3) Microcytic hypochromic anemia: Possible secondary to GI malignancy/colon cancer, Symptomatic anemia Possible chronic blood loss anemia due to ? colon cancer ABD USD:No cholelithiasis or biliary ductal dilatation. No evidence of cholec ystitis. Hyperechogenic and heterogeneous liver parenchyma could indicate underlying fibrosis or steatosis. S/P EGD: Normal esophagus. Erythematous mucosa in the antrum. Biopsied. Normal duodenal bulb and second portion of the duodenum. Biopsied. S/P Colonoscopy:-The examined portion of the ileum was normal. Likely malignant tumor in the ascending colon. Biopsied. Tattooed. One 6 mm polyp in the sigmoid colon, removed with a cold snare. Resected and retrieved. Diverticulosis in the sigmoid colon. Non-bleeding internal hemorrhoids. -- Patient received 2 units of PRBC transfusion hemoglobin remained stable Status post right hemicolectomy, patient is recovering well postoperatively (4) Atrial fibrillation with RVR: No further episode remains sinus with rate controlled integument Transient A. fib RVR Volume overload likely secondary to A. fib RVR Likely secondary to symptomatic anemia Converted to Sinus--remains in sinus Continue Metoprolol 25 mg BID (5) Elevated LFTs: Abdominal ultrasound suggestive of hepatic fibrosis or steatosis Monitor (6) HTN (hypertension): On metoprolol (7) Post herpetic neuralgia: Denies of any symptom at this point (8) DVT prophylaxis: DVT prophylaxis: High risk for DVT,: Malignancy advanced age Order for subcu heparin Code Status Full Code Disposition: Continue PT OT, Patient will be possible transfer to medical floor tomorrow Subjective Patient been out of bed to chair, feels much better today on clear liquid diet, Feels hungry, per surgery note she will be advanced to full liquid diet tomorrow morning Able to pass gas, no bowel movement yet Abdominal pain very well controlled, no fever chills no nausea vomiting Review of Systems Review of Systems: All systems reviewed & are unremarkable except as noted in HPI & below Physical Exam 2 Constitutional: + thin; no acute distress Eyes: PERRL, conjunctivae normal, anicteric sclerae ENMT: external ear and nose normal, oropharynx normal Neck: trachea midline, no thyromegaly Respiratory: normal respiratory effort, lungs clear to auscultation Cardiovascular: RRR, no murmur, no edema Gastrointestinal (Abdomen): Inspection/Auscultation: + abdomen abnormal to inspection (mid abdomen surgical incision site , bandgae present , no drain , ) and + abnormal bowel sounds (diminished ) Percussion/Palpation: + abdomen tender and abdomen soft Musculoskeletal: no cyanosis or clubbing, extremities motor strength 5/5 Skin: no rashes, warm and dry Neurologic: PERRL, EOMI, accommodation nl, no face palsy, no dysarthria Psychiatric: A+Ox3, euthymic affect Results & Data Vital Signs (Past 12 Hours) Vital Signs Temp Pulse Pulse Resp BP BP Pulse Ox 10/25/18 16:00 78 10/25/18 15:23 36.7 C 65 19 154/63 H 97 10/25/18 11:00 37.1 C 65 17 143/68 H 98 10/25/18 08:00 71 10/25/18 07:47 37.3 C 70 18 154/64 H 95
[2018-10-26 06:21] LABS: Basophils # (auto) 0.02 K/uL (0-0.2); Basophils % (auto) 0.2 %; Eosinophils # (auto) 0.13 K/uL (0-0.5); Eosinophils % (auto) 1.4 %; Hematocrit (blood only) 28.1 % (37-47); Hemoglobin 8.4 g/dL (12.0-16.0); Immature Granulocytes # (auto) 0.02 K/uL (0.00-0.02); Immature Granulocytes % (auto) 0.2 %; Lymphocytes # (auto) 2.17 K/uL (1.2-3.4); Lymphocytes % (auto) 24.1 %; Mean Corpuscular Hemoglobin 21.5 pg (25-34); Mean Corpuscular Hgb Conc 29.9 g/dL (32-36); Mean Corpuscular Volume 71.9 fL (80-100); Mean Platelet Volume 9.1 fL (7.4-10.4); Monocytes # (auto) 0.56 K/uL (0.11-0.59); Monocytes % (auto) 6.2 %; Neutrophils # (auto) 6.11 K/uL (1.4-6.5); Neutrophils % (auto) 67.9 %; Platelet Count 209 K/uL (130-400); RDW Coefficient of Variation 27.2 % (11.5-14.5); RDW Standard Deviation 68.8 fL (36.4-46.3); Red Blood Count 3.91 M/uL (4.2-5.4); White Blood Count 9.01 K/uL (4.8-10.8)
[2018-10-26 06:43] LABS: Anisocytosis Present; Hypochromasia Present
[2018-10-26 07:01] LABS: BUN Creatinine Ratio 17.1 (10-20); Calcium 8.4 mg/dl (8.5-10.1); Creatinine Clr Calc Pharmacy 45.5 ml/min; Est GFR (African American) 92.2; Est GFR (Non-African American) 79.6; Potassium 3.6 mmol/L (3.5-5.1)
--- NOTE | 2018-10-26 07:18 | Surgery Progress Note ---
Date of Service feels well tolerated liquids yesterday no nausea , no flatus October 26, 2018 Assessment & Plan (1) Colonic mass: POD 3 will increase diet to full liquids will remove sub cut drain likely be here until monday [facility] covering week end POD 2 right colect keep on clears for now, full liquids later today or tomorrow wants to keep lares for now decreased IVF to 80 from 125 Physical Exam Physical Exam: alert no complaints, abd neg Results & Data Vital Signs (Past 12 Hours) Vital Signs Temp Pulse Resp BP BP Pulse Ox 10/26/18 03:24 36.9 C 60 16 144/62 H 94 10/25/18 23:57 36.6 C 65 18 126/60 95 10/25/18 19:27 36.9 C 67 18 158/65 H 98 PG Care Time/CCT Total # of Minutes Spent Total Time Spent with Patient: Total time spent is greater than 50% in coordination of care (as documented) at patient's floor/unit and/or counseling patient:
[2018-10-26] MEDS: METOPROLOL TARTRATE 25 MG TAB PO SCH ×2 (08:04→21:13)
[2018-10-26] MEDS: HEPARIN SOD 5,000 UNIT/0.5 ML VIAL SQ SCH ×2 (08:04→21:14)
--- NOTE | 2018-10-26 17:42 | Hospitalist Progress Note ---
Date of Service October 26, 2018 Assessment & Plan (1) Malignant tumor of ascending colon: Malignant tumor of the ascending colon Patient presented with with symptomatic microcytic anemia T --CT chest:No evidence of metastatic disease within the chest. Moderate cardiomegaly. Mild interstitial pulmonary edema with small bilateral pleural effusions. --CT abdomen:Wall thickening of the mid ascending colon which represents the known primary tumor. No evidence of metastatic disease within the abdomen or pelvis. Trace pericolonic fluid adjacent to the distal ascending colon. 6.1 cm cystic left adnexal lesion. Although this may reflect a cyst, this is considered pathologic in a postmenopausal patient and a follow-up nonemergent pelvic ultrasound is recommended to evaluate for complexity. No bowel obstruction. Sigmoid diverticulosis without evidence for acute diverticulitis. Gallbladder wall thickening, a nonspecific finding. No gallbladder distention. 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 Appreciate Surgery Input s/p colectomy and bilateral salpingo-oophorectomy by Dr Fairchild on 10/23/18 Recovering well postop, Tolerating diet, able to have bowel movement (2) Microcytic hypochromic anemia: Possible secondary to GI malignancy/colon cancer, Symptomatic anemia Possible chronic blood loss anemia due to ? colon cancer ABD USD:No cholelithiasis or biliary ductal dilatation. No evidence of cholecystitis. Hyperechogenic and heterogeneous liver parenchyma could indicate underlying fibrosis or steatosis. S/P EGD: Normal esophagus. Erythematous mucosa in the antrum. Biopsied. Normal duodenal bulb and second portion of the duodenum. Biopsied. S/P Colonoscopy:-The examined portion of the ileum was normal. Likely malignant tumor in the ascending colon. Biopsied. Tattooed. One 6 mm polyp in the sigmoid colon, removed with a cold snare. Resected and retrieved. Diverticulosis in the sigmoid colon. Non-bleeding internal hemorrhoids. -- Patient received 2 units of PRBC transfusion hemoglobin remained stable Status post right hemicolectomy, patient is recovering well postoperatively (3) Atrial fibrillation with RVR: No further episode remains sinus with rate controlled integument Transient A. fib RVR Volume overload likely secondary to A. fib RVR Likely secondary to symptomatic anemia Converted to Sinus--remains in sinus Continue Metoprolol 25 mg BID (4) Elevated LFTs: Abdominal ultrasound suggestive of hepatic fibrosis or steatosis Monitor (5) HTN (hypertension): On metoprolol (6) Post herpetic neuralgia: Denies of any symptom at this point (7) DVT prophylaxis: DVT prophylaxis: High risk for DVT,: Malignancy advanced age Order for subcu heparin Code Status Full Code Disposition: Patient will need rehab after discharge from home, referral made to [facility] Possible transfer to rehab on Monday Subjective Advance to full liquid, patient's been doing very well, no nausea vomiting and abdominal pain Able to have a bowel movement Afebrile, vitals remained stable Tachyarrhythmia noted Stable to be transferred out of telemetry Review of Systems Review of Systems: All systems reviewed & are unremarkable except as noted in HPI & below Physical Exam Constitutional: + thin; no acute distress Eyes: PERRL, conjunctivae normal, anicteric sclerae ENMT: external ear and nose normal, oropharynx normal Neck: trachea midline, no thyromegaly Respiratory: normal respiratory effort, lungs clear to auscultation Cardiovascular: RRR, no murmur, no edema Gastrointestinal (Abdomen): Inspection/Auscultation: + abdomen abnormal to inspection (mid abdomen surgical incision site , bandgae present , no drain , ) and + abnormal bowel sounds (diminished ) Percussion/Palpation: + abdomen tender and abdomen soft Musculoskeletal: no cyanosis or clubbing, extremities motor strength 5/5 Skin: no rashes, warm and dry Neurologic: PERRL, EOMI, accommodation nl, no face palsy, no dysarthria Psychiatric: A+Ox3, euthymic affect Results & Data Vital Signs (Past 12 Hours) Vital Signs Temp Pulse Pulse Resp BP BP Pulse Ox 10/26/18 16:39 36.7 C 75 18 175/69 H 98 10/26/18 15:18 36.7 C 71 18 154/70 H 97 10/26/18 11:20 36.7 C 64 18 142/79 H 97 10/26/18 08:00 60 10/26/18 07:30 36.8 C 92 H 18 143/64 H 92
[2018-10-26] MEDS: MoRPHine SULFATE 2 MG/ML CARP IV PRN (21:13)
[2018-10-27] MEDS: METOPROLOL TARTRATE 25 MG TAB PO SCH ×2 (08:10→20:36)
[2018-10-27] MEDS: HEPARIN SOD 5,000 UNIT/0.5 ML VIAL SQ SCH ×2 (08:10→20:35)
--- NOTE | 2018-10-27 08:26 | Surgery Progress Note ---
Date of Service October 27, 2018 Assessment & Plan (1) Malignant tumor of ascending colon: Postoperative day #4, status post right hemicolectomy Doing much better today Tolerating diet would like more solid food, will advance diet Has passed bowels and is passing flatus Encouraged ambulation Subjective Feels much better today Had bowel movement and passing flatus Tolerating full liquid diet Abdominal discomfort has decreased significantly No nausea or vomiting Physical Exam Gastrointestinal (Abdomen): Inspection/Auscultation: + abdominal surgical incision (Clean dry and intact); abdomen not distended Percussion/Palpation: + abdomen tender (Incisional only) and abdomen soft Results & Data Vital Signs (Past 12 Hours) Vital Signs Temp Pulse Resp BP Pulse Ox 10/27/18 07:15 36.8 C 67 18 144/61 H 96 10/26/18 22:27 36.8 C 74 20 121/60 96
[2018-10-27 08:39] LABS: Hematocrit (blood only) 30.7 % (37-47); Hemoglobin 9.1 g/dL (12.0-16.0)
--- NOTE | 2018-10-27 13:54 | Hospitalist Progress Note ---
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 Moderate cardiomegaly. Mild interstitial pulmonary edema with small bilateral pleural effusions. --CT abdomen:Wall thickening of the mid ascending colon which represents the known primary tumor. No evidence of metastatic disease within the abdomen or pelvis. Trace pericolonic fluid adjacent to the distal ascending colon. 6.1 cm cystic left adnexal lesion. Although this may reflect a cyst, this is considered pathologic in a postmenopausal patient and a follow-up nonemergent pelvic ultrasound is recommended to evaluate for complexity. No bowel obstruction. Sigmoid diverticulosis without evidence for acute diverticulitis. Gallbladder wall thickening, a nonspecific finding. No gallbladder distention. 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 Appreciate Surgery Input s/p colectomy and bilateral salpingo-oophorectomy by Dr Fairchild on 10/23/18 Recovering well postop, Having bowel movement, diet advanced to low residual tolerating well Plan for possible discharge to rehab on Monday (2) Microcytic hypochromic anemia: Possible secondary to GI malignancy/colon cancer, Symptomatic anemia Possible chronic blood loss anemia due to ? colon cancer ABD USD:No cholelithiasis or biliary ductal dilatation. No evidence of cholecystitis. Hyperechogenic and heterogeneous liver parenchyma could indicate underlying fibrosis or steatosis. S/P EGD: Normal esophagus. Erythematous mucosa in the antrum. Biopsied. Normal duodenal bulb and second portion of the duodenum. Biopsied. S/P Colonoscopy:-The examined portion of the ileum was normal. Likely malignant tumor in the ascending colon. Biopsied. Tattooed. One 6 mm polyp in the sigmoid colon, removed with a cold snare. Resected and retrieved. Diverticulosis in the sigmoid colon. Non-bleeding internal hemorrhoids. -- Patient received 2 units of PRBC transfusion hemoglobin remained stable Status post right hemicolectomy, patient is recovering well postoperatively Postop hemoglobin remained stable at 9 (3) Atrial fibrillation with RVR: No further episode remains sinus with rate controlled integument Transient A. fib RVR Volume overload likely secondary to A. fib RVR Likely secondary to symptomatic anemia Converted to Sinus--remains in sinus Continue Metoprolol 25 mg BID A candidate for chronic anticoagulation: High risk for GI bleed, colon cancer (4) Elevated LFTs: Abdominal ultrasound suggestive of hepatic fibrosis or steatosis (5) HTN (hypertension): On metoprolol (6) Post herpetic neuralgia: Denies of any symptom at this point (7) DVT prophylaxis: DVT prophylaxis: High risk for DVT,: Malignancy advanced age On subcu r subcu heparin Code Status Full Code Disposition: Lives at home with granddaughter's family, Appreciate input from Patient will need rehab after discharge from home, referral made to [facility] Possible transfer to rehab on Monday10/29/2018 Update given to patient's granddaughter over phone Subjective Continues to do well, having bowel movement evaluated by surgery team today diet advanced to low residual, tolerating well No fever or chills No nausea vomiting Physical Exam Constitutional: + thin; no acute distress Eyes: PERRL, conjunctivae normal, anicteric sclerae ENMT: external ear and nose normal, oropharynx normal Neck: trachea midline, no thyromegaly Respiratory: normal respiratory effort, lungs clear to auscultation Cardiovascular: RRR, no murmur, no edema Gastrointestinal (Abdomen): Inspection/Auscultation: + abdomen abnormal to inspection (mid abdomen surgical incision site , bandgae present , no drain , ) and + abnormal bowel sounds (diminished ) Percussion/Palpation: + abdomen tender and abdomen soft Musculoskeletal: no cyanosis or clubbing, extremities motor strength 5/5 Skin: no rashes, warm and dry Neurologic: PERRL, EOMI, accommodation nl, no face palsy, no dysarthria Psychiatric: A+Ox3, euthymic affect Results & Data Vital Signs (Past 12 Hours) Vital Signs Temp Pulse Resp BP Pulse Ox 10/27/18 07:15 36.8 C 67 18 144/61 H 96
[2018-10-27] MEDS ORDERED: ALUM HYDROX/MAG TRISILICATE CHEW PO ONE (19:02)
[2018-10-27] MEDS: MoRPHine SULFATE 2 MG/ML CARP IV PRN (20:39)
[2018-10-28 03:50] LABS: Appearance Urine Turbid (Clear); Bacteria Urine Automated 2+ (Negative); Bilirubin Urine Negative (Negative); Blood Urine 2+ (Negative); Color Urine Yellow; Epithelial Cell Urine Auto 20-30 /lpf (0-5); Glucose Urine UA Negative (Negative); Ketones Urine Negative (Negative); Leukocyte Esterase Urine 3+ (Negative); Nitrite Urine Positive (Negative); Specific Gravity Urine 1.015 (1.000-1.030); Urobilinogen Urine Negative (Negative); WBC Urine Automated >30 /hpf (0-5)
[2018-10-28 03:54] LABS: Protein Urine 1+ (Negative)
[2018-10-28 04:04] LABS: Cast Urine Automated 0 /lpf (0-5); RBC Urine Automated 0-4 /hpf (0-4)
[2018-10-28 04:05] LABS: Renal Epithelial Cells Urine 0-5 /lpf (0-5)
[2018-10-28] MEDS ORDERED: PROMETHAZINE HCL 12.5 MG in SODIUM CHLORIDE 0.9% 50 ML IV PRN (07:54)
[2018-10-28] MEDS: METOPROLOL TARTRATE 25 MG TAB PO SCH ×2 (08:03→20:27)
[2018-10-28] MEDS: HEPARIN SOD 5,000 UNIT/0.5 ML VIAL SQ SCH ×2 (08:03→20:27)
[2018-10-28 08:30] LABS: Hematocrit (blood only) 30.3 % (37-47)
[2018-10-28] MEDS ORDERED: POLYETHYLENE (MIRALAX) 17 GM PACK PO SCH (09:00)
[2018-10-28 09:15] LABS: Albumin Level 2.9 gm/dl (3.4-5.0); Bilirubin Direct 0.3 mg/dl (0-0.2); Bilirubin,Total 1.2 mg/dl (0.2-1); Total Protein 6.8 gm/dl (6.4-8.2)
[2018-10-28] MEDS: CIPROFLOXACIN 400 MG/200 ML BAG IV SCH ×2 (11:01→20:29)
[2018-10-28] MEDS ORDERED: BISACODYL 10 MG SUPP PR ONE (11:26)
--- NOTE | 2018-10-28 11:26 | Surgery Progress Note ---
Date of Service October 28, 2018 Assessment & Plan (1) Malignant tumor of ascending colon: Postoperative day #5 status post right hemicolectomy Feels like she cannot pass her bowels but has a sensation that she needs to. Will order a suppository Tolerating diet H&H is stable Ambulating Discharge planning is for rehabilitation at [facility] with probable discharge for tomorrow Subjective Postoperative day #5 status post right hemicolectomy and BSO Now on low fiber diet tolerated well Denies nausea vomiting Passing flatus Feels like she needs to pass her bowels but has not been able to and is a little uncomfortable from that Physical Exam Constitutional: no acute distress Gastrointestinal (Abdomen): Inspection/Auscultation: normal bowel sounds; abdomen not distended Percussion/Palpation: + abdomen tender and abdomen soft Results & Data Vital Signs (Past 12 Hours) Vital Signs Temp Pulse Resp BP Pulse Ox 10/28/18 07:00 36.8 C 66 18 143/71 H 95 10/27/18 23:29 37.1 C 67 16 122/54 L 95 Laboratory Results 10/28/18 10/28/18 10/28/18 Range/Units 08:09 08:09 03:35 Hgb 9.0 L (12.0-16.0) g/dL Hct 30.3 L (37-47) % Total Bilirubin 1.2 H (0.2-1) mg/dl Direct Bilirubin 0.3 H (0-0.2) mg/dl AST 21 (15-37) U/L ALT 31 (12-78) U/L Alkaline Phosphatase 95 (45-117) U/L Total Protein 6.8 (6.4-8.2) gm/dl Albumin 2.9 L (3.4-5.0) gm/dl Urine Color Yellow Urine Appearance Turbid A (Clear) Urine pH 8.0 H (4.5-7.5) Ur Specific [place] 1.015 (1.000-1.030) Urine Protein 1+ H (Negative) Urine Glucose (UA) Negative (Negative) Urine Ketones Negative (Negative) Urine Blood 2+ H (Negative) Urine Nitrite Positive A (Negative) Urine Bilirubin Negative (Negative) Urine Urobilinogen Negative (Negative) Ur Leukocyte Esterase 3+ H (Negative) Urine WBC (Auto) >30 H (0-5) /hpf Urine RBC (Auto) 0-4 (0-4) /hpf U Hyaline Cast (Auto) 0 (0-5) /lpf U Epithel Cells (Auto) 20-30 H (0-5) /lpf Urine Bacteria (Auto) 2+ H (Negative) Ur Renal Epithelial Cell 0-5 (0-5) /lpf Urine Yeast Not Reportable
--- NOTE | 2018-10-28 14:25 | Hospitalist Progress Note ---
Date of Service October 28, 2018 Assessment & Plan (1) Possible urinary tract infection: UA shows turbid urine, positive nitrate, more than 30 WBC (pyuria), positive leukocyte esterase, 2+ bacteria She denies of any urinary symptoms, no dysuria, denies of any urinary frequency Started empirically with ciprofloxacin Urine culture ordered we will follow report (2) Malignant tumor of ascending colon: Malignant tumor of the ascending colon Patient presented with with symptomatic microcytic anemia --CT chest:No evidence of metastatic disease within the chest. Moderate cardiomegaly. Mild interstitial pulmonary edema with small bilateral pleural effusions. --CT abdomen:Wall thickening of the mid ascending colon which represents the known primary tumor. No evidence of metastatic disease within the abdomen or pelvis. Trace pericolonic fluid adjacent to the distal ascending colon. 6.1 cm cystic left adnexal lesion. Although this may reflect a cyst, this is considered pathologic in a postmenopausal patient and a follow-up nonemergent pelvic ultrasound is recommended to evaluate for complexity. No bowel obstruction. Sigmoid diverticulosis without evidence for acute diverticulitis. Gallbladder wall thickening, a nonspecific finding. No gallbladder distention. 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 Appreciate Surgery Input s/p colectomy and bilateral salpingo-oophorectomy by Dr Fairchild on 10/23/18 Recovering well postop, Having bowel movement, diet advanced to low residual tolerating well Plan for possible discharge to rehab on Monday (3) Microcytic hypochromic anemia: Possible secondary to GI malignancy/colon cancer, Symptomatic anemia Possible chronic blood loss anemia due to ? colon cancer ABD USD:No cholelithiasis or biliary ductal dilatation. No evidence of cholecystitis. Hyperechogenic and heterogeneous liver parenchyma could indicate underlying fibrosis or steatosis. S/P EGD: Normal esophagus. Erythematous mucosa in the antrum. Biopsied. Normal duodenal bulb and second portion of the duodenum. Biopsied. S/P Colonoscopy:-The examined portion of the ileum was normal. Likely malignant tumor in the ascending colon. Biopsied. Tattooed. One 6 mm polyp in the sigmoid colon, removed with a cold snare. Resected and retrieved. Diverticulosis in the sigmoid colon. Non-bleeding internal hemorrhoids. -- Patient received 2 units of PRBC transfusion hemoglobin remained stable Status post right hemicolectomy, patient is recovering well postoperatively Postop hemoglobin remained stable at 9 (4) Atrial fibrillation with RVR: No further episode remains sinus with rate controlled integument Transient A. fib RVR Volume overload likely secondary to A. fib RVR Likely secondary to symptomatic anemia Converted to Sinus--remains in sinus Continue Metoprolol 25 mg BID A candidate for chronic anticoagulation: High risk for GI bleed, colon cancer (5) Elevated LFTs: Abdominal ultrasound suggestive of hepatic fibrosis or steatosis (6) HTN (hypertension): On metoprolol (7) Post herpetic neuralgia: Denies of any symptom at this point (8) DVT prophylaxis: DVT prophylaxis: High risk for DVT,: Malignancy advanced age On subcu r subcu heparin Code Status Full Code Disposition: Lives at home with granddaughter's family, Appreciate input from Patient will need rehab after discharge from home, referral made to [facility] Possible transfer to rehab on Monday10/29/2018 Update given to patient's granddaughter over phone Subjective Tolerating diet, had bowel movement after starting on bowel regimen, Fever or chills Denies of any urinary symptoms. Physical Exam Constitutional: + thin; no acute distress Eyes: PERRL, conjunctivae normal, anicteric sclerae ENMT: external ear and nose normal, oropharynx normal Neck: trachea midline, no thyromegaly Respiratory: normal respiratory effort, lungs clear to auscultation Cardiovascular: RRR, no murmur, no edema Gastrointestinal (Abdomen): Inspection/Auscultation: + abdomen abnormal to inspection (mid abdomen surgical incision site , bandgae present , no drain , ) and + abnormal bowel sounds (diminished ) Percussion/Palpation: + abdomen tender and abdomen soft Musculoskeletal: no cyanosis or clubbing, extremities motor strength 5/5 Skin: no rashes, warm and dry Neurologic: PERRL, EOMI, accommodation nl, no face palsy, no dysarthria Psychiatric: A+Ox3, euthymic affect Results & Data Vital Signs (Past 12 Hours) Vital Signs Temp Pulse Resp BP Pulse Ox 10/28/18 07:00 36.8 C 66 18 143/71 H 95
[2018-10-28] MEDS ORDERED: MAGNESIUM HYDROXIDE SUSP 30 ML UDC PO PRN (14:46)
[2018-10-28] MEDS: POLYETHYLENE (MIRALAX) 17 GM PACK PO SCH (20:25)
[2018-10-28] MEDS: DOCUSATE SODIUM 100 MG CAP PO SCH (20:26)
[2018-10-28] MEDS: MoRPHine SULFATE 2 MG/ML CARP IV PRN (20:28)
[2018-10-29 07:22] LABS: Albumin Level 2.7 gm/dl (3.4-5.0); Bilirubin Direct 0.2 mg/dl (0-0.2); Bilirubin,Total 0.9 mg/dl (0.2-1); Total Protein 6.6 gm/dl (6.4-8.2)
--- NOTE | 2018-10-29 07:37 | Surgery Progress Note ---
Date of Service October 29, 2018 Assessment & Plan (1) Colonic mass: POD 6 s/p right radical colectomy BSO path noted and discussed with pt drain removed will remove yanci in office [facility] 1 week may shower and no restriction activity can d/c to [facility] when [place] with medical service POD 3 will increase diet to full liquids will remove sub cut drain likely be here until monday [facility] surgeons covering week end POD 2 right colect keep on clears for now, full liquids later today or tomorrow wants to keep lares for now decreased IVF to 80 from 125 Subjective no complaints feels fine no problem urinating bowels moving and tolerating diet Physical Exam Physical Exam: alert coherent abd neg incision healing well drain sub cut will remove Results & Data Vital Signs (Past 12 Hours) Vital Signs Temp Pulse Resp BP Pulse Ox 10/28/18 23:23 36.6 C 87 20 148/73 H 96 PG Care Time/CCT Total # of Minutes Spent Total Time Spent with Patient: Total time spent is greater than 50% in coordination of care (as documented) at patient's floor/unit and/or counseling patient:
[2018-10-29] MEDS: DOCUSATE SODIUM 100 MG CAP PO SCH (07:54)
[2018-10-29] MEDS: POLYETHYLENE (MIRALAX) 17 GM PACK PO SCH (07:54)
[2018-10-29] MEDS: HEPARIN SOD 5,000 UNIT/0.5 ML VIAL SQ SCH (07:56)
[2018-10-29] MEDS: CIPROFLOXACIN 400 MG/200 ML BAG IV SCH (07:56)
[2018-10-29] MEDS: METOPROLOL TARTRATE 25 MG TAB PO SCH (07:56)
--- NOTE | 2018-10-29 09:51 | Hospitalist Progress Note ---
Date of Service October 29, 2018 Assessment & Plan (1) UTI (urinary tract infection), uncomplicated: Urine culture: Gram-negative bacilli Patient has been started on ciprofloxacin (allergic to penicillin) Uncomplicated UTI, No fever chills, Patient reports resolution of urinary symptoms, dysuria, increased frequency of urination has resolved Continue ciprofloxacin p.o. 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 Moderate cardiomegaly. Mild interstitial pulmonary edema with small bilateral pleural effusions. --CT abdomen:Wall thickening of the mid ascending colon which represents the known primary tumor. No evidence of metastatic disease within the abdomen or pelvis. Trace pericolonic fluid adjacent to the distal ascending colon. 6.1 cm cystic left adnexal lesion. Although this may reflect a cyst, this is considered pathologic in a postmenopausal patient and a follow-up nonemergent pelvic ultrasound is recommended to evaluate for complexity. No bowel obstruction. GI consulted, appreciate input Status post colonoscopy: Pathology of ascending colon Bx: Infiltrative adenocarcinoma --CEA:1.4 EGD Pathology:Stomach Bx: Moderate to focally severe chronic active gastritis with focal intestinal metaplasia. Appreciate Surgery Input s/p colectomy and bilateral salpingo-oophorectomy by Dr Fairchild on 10/23/18 Postoperative day #6 Had fairly uncomplicated postop recovery, Had bowel movements, tolerating low residual diet well Surgical drain removed by the team this morning Outpatient follow-up at Dr. Fairchild /surgery clinic 1 week for removal of yanci Medically stable to be discharged from hospital (3) Microcytic hypochromic anemia: secondary to GI malignancy/colon cancer, Symptomatic anemia Possible chronic blood loss anemia due to ? colon cancer S/P EGD: Normal esophagus. Erythematous mucosa in the antrum. Biopsied. Normal duodenal bulb and second portion of the duodenum. -No evidence of upper GI bleed S/P Colonoscopy:- malignant tumor in the ascending colon. . One 6 mm polyp in the sigmoid colon, removed with a cold snare. Resected and retrieved. Diverticulosis in the sigmoid colon. Non-bleeding internal hemorrhoids. BIOPSY OF COLON MASS: SHOWS INFILTRATIVE ADENO CA -- Patient received 2 units of PRBC transfusion hemoglobin remained stable Posttransfusion hemoglobin remained stable~9 Status post right hemicolectomy, patient is recovering well postoperatively (4) Atrial fibrillation with RVR: No further episode remains sinus with rate controlled integument Developed transient A. fib RVR Likely secondary to symptomatic anemia/ Converted to Sinus--remains in sinus Continue Metoprolol 25 mg BID Not a candidate for chronic anticoagulation: High risk for GI bleed, colon cancer (5) Elevated LFTs: Resolved Repeat lab shows: Liver function normalized Abdominal ultrasound suggestive of hepatic fibrosis or steatosis (6) HTN (hypertension): On metoprolol (7) Post herpetic neuralgia: Denies of any symptom at this point (8) DVT prophylaxis: DVT prophylaxis: High risk for DVT,: Malignancy advanced age On subcu r subcu heparin Code Status Full Code Disposition: Lives at home with granddaughter's family, Appreciate input from Patient will need rehab after discharge from home, referral made to [facility] Patient is medically stable to be transition to rehab today Subjective Finished her breakfast this morning, feels fine, no complaint of abdominal pain Very pleasant, Evaluated by surgery team this morning, intra-abdominal surgical drain removed Surgical incision site healing well Stable to be transferred to rehab today if insurance approval obtained No fever or chills Patient denies of any GI or symptoms No cough, no shortness of breath no hypoxia noticed dyspnea on exertion Review of Systems Review of Systems: All systems reviewed & are unremarkable except as noted in HPI & below Physical Exam Constitutional: + thin; no acute distress Comfortable, very pleasant conversing Eyes: PERRL, conjunctivae normal, anicteric sclerae ENMT: external ear and nose normal, oropharynx normal Neck: trachea midline, no thyromegaly Respiratory: normal respiratory effort, lungs clear to auscultation Cardiovascular: RRR, no murmur, no edema Gastrointestinal (Abdomen): Inspection/Auscultation: normal bowel sounds (diminished ) and + abdominal surgical incision (Mid abdomen surgical incision, yanci intact incision well approximated no swelling healing well, surgical drain removed) Percussion/Palpation: abdomen soft; abdomen nontender Musculoskeletal: no cyanosis or clubbing, extremities motor strength 5/5 Skin: no rashes, warm and dry Neurologic: PERRL, EOMI, accommodation nl, no face palsy, no dysarthria Psychiatric: A+Ox3, euthymic affect Results & Data Vital Signs (Past 12 Hours) Vital Signs Temp Pulse Pulse Resp BP Pulse Ox 10/29/18 08:02 36.7 C 78 20 156/71 H 98 10/28/18 23:23 36.6 C 87 20 148/73 H 96
[2018-10-29] MEDS ORDERED: FERROUS FUMARATE/ASCORBIC ACID 65 MG CAPCR PO SCH (10:00)
--- NOTE | 2018-10-29 13:50 | Discharge Summary ---
Date of Service October 29, 2018 Admission HPI Per Admitting Provider This is an 88-year-old female who has significant past medical history of HTN, history of migraines, postherpetic neuralgia who presents to [facility] ED secondary to dizziness and shortness of breath x1 day. Patient states when she woke up and got out of bed today she felt dizzy and lightheaded. She went into use the bathroom and when she came out she felt like she could pass out. Also was having palpitations. Granddaughter was near her who assisted her to her bed. She also had dyspnea on exertion this morning as well and family felt she overall looked pale. She does note CROWDER for rosendo roximately the past 2 to 3 months. Further she notes she has not been feeling well for the past 3 months ever since she had an episode of shingles on her right buttock. She was treated with antivirals appropriately but had persistent postherpetic neuralgia. She takes occasional ibuprofen for this but not on a daily basis. Otherwise she just, "lives with the pain." Outside of the shingles she denies any recent illness. Denies any fever, chills, sweats, jose alberto syncope, chest pain, hemoptysis, nausea, vomiting, diarrhea, abdominal pain, melena, hematochezia, vaginal bleeding. She does complain of dysuria, but feels related to her, "shingle pain. " She does have increased frequency with urination but only at night. She denies any increased urgency or hematuria. Never at bedside. She is otherwise healthy 88-year-old female who lives with her granddaughter and great-grandchild. Does not need any assist device for ambulation. Denies any recent smoking or alcohol use. Denies any prior history of CAD, NC, CVA, cardiac arrhythmia, diabetes, anemia or GI bleed. Her last colonoscopy was approximately 20 years ago when she elicits she had a polyp removed. Principal Diagnosis Colon CA/Status Post Colectomy, Anemia, Paroxysmal A. fib, UTI Discharge Exam Constitutional + thin; no acute distress Eyes PERRL, conjunctivae normal, anicteric sclerae ENMT external ear and nose normal, oropharynx normal Neck trachea midline, no thyromegaly Respiratory normal respiratory effort, lungs clear to auscultation Cardiovascular RRR, no murmur, no edema Gastrointestinal (Abdomen) Inspection/Auscultation: normal bowel sounds (diminished ) and + abdominal surgical incision (Mid abdomen surgical incision, yanci intact incision well approximated no swelling healing well, surgical drain removed) Percussion/Palpation: abdomen soft; abdomen nontender Musculoskeletal no cyanosis or clubbing, extremities motor strength 5/5 Skin no rashes, warm and dry Neurologic PERRL, EOMI, accommodation nl, no face palsy, no dysarthria Psychiatric A+Ox3, euthymic affect Discharge Data Allergies Allergy/AdvReac Type Severity Reaction Status Date / Time amoxicillin AdvReac Intermediate Rash Unverified 10/18/18 13:53 diphenhydramine AdvReac Intermediate Rash Unverified 10/18/18 13:53 [From Benadryl] Penicillins AdvReac Intermediate Severe Rash Unverified 10/18/18 13:53 Consultations 10/18/18 13:39 ED Decision to Admit Stat 10/18/18 14:16 Consult Gastroenterology Routine 10/18/18 16:32 Consult Case Management - Discharge Planning Routine 10/19/18 16:10 Consult General Surgery Routine Procedures Performed Operation Date: 10/19/18 10:15 Actual Procedures p EGD Biopsy Cytology(Left) - Pawel Guerrier MD s Colonoscopy Biopsy Cytology(Left) - Pawel Guerrier MD Operation Date: 10/23/18 12:40 Actual Procedures p Right Radical Colectomy(Right) - Manish Fairchild MD s Bilateral Salpingo-Oophorectomy(Bilateral) - Manish Fairchild MD Ordered Studies 10/18/18 14:16 US abdomen limited Routine 10/19/18 16:10 CT abd pelvis oral and IV con Routine CT chest w con Routine Hospital Course (1) UTI (urinary tract infection), uncomplicated: Urine culture: Gram-negative bacilli Patient has been started on ciprofloxacin (allergic to penicillin) Uncomplicated UTI, No fever chills, Patient reports resolution of urinary symptoms, dysuria, increased frequency of urination has resolved Continue ciprofloxacin p.o. 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 Moderate cardiomegaly. Mild interstitial pulmonary edema with small bilateral pleural effusions. --CT abdomen:Wall thickening of the mid ascending colon which represents the known primary tumor. No evidence of metastatic disease within the abdomen or pelvis. Trace pericolonic fluid adjacent to the distal ascending colon. 6.1 cm cystic left adnexal lesion. Although this may reflect a cyst, this is considered pathologic in a postmenopausal patient and a follow-up nonemergent pelvic ultrasound is recommended to evaluate for complexity. No bowel obstruction. GI consulted, appreciate input Status post colonoscopy: Pathology of ascending colon Bx: Infiltrative adenocarcinoma --CEA:1.4 EGD Pathology:Stomach Bx: Moderate to focally severe chronic active gastritis with focal intestinal metaplasia. Appreciate Surgery Input s/p colectomy and bilateral salpingo-oophorectomy by Dr Fairchild on 10/23/18 Postoperative day #6 Had fairly uncomplicated postop recovery, Had bowel movements, tolerating low residual diet well Surgical drain removed by the team this morning Outpatient follow-up at Dr. Fairchild /surgery clinic 1 week for removal of yanci Medically stable to be discharged from hospital (3) Microcytic hypochromic anemia: secondary to GI malignancy/colon cancer, Symptomatic anemia Possible chronic blood loss anemia due to ? colon cancer S/P EGD: Normal esophagus. Erythematous mucosa in the antrum. Biopsied. Normal duodenal bulb and second portion of the duodenum. -No evidence of upper GI bleed S/P Colonoscopy:- malignant tumor in the ascending colon. . One 6 mm polyp in the sigmoid colon, removed with a cold snare. Resected and retrieved. Diverticulosis in the sigmoid colon. Non-bleeding internal hemorrhoids. BIOPSY OF COLON MASS: SHOWS INFILTRATIVE ADENO CA -- Patient received 2 units of PRBC transfusion hemoglobin remained stable Posttransfusion hemoglobin remained stable~9 Status post right hemicolectomy, patient is recovering well postoperatively (4) Atrial fibrillation with RVR: No further episode remains sinus with rate controlled integument Developed transient A. fib RVR Likely secondary to symptomatic anemia/ Converted to Sinus--remains in sinus Continue Metoprolol 25 mg BID Not a candidate for chronic anticoagulation: High risk for GI bleed, colon cancer (5) Elevated LFTs: Resolved Repeat lab shows: Liver function normalized Abdominal ultrasound suggestive of hepatic fibrosis or steatosis (6) HTN (hypertension): On metoprolol (7) Post herpetic neuralgia: Denies of any symptom at this point (8) DVT prophylaxis: DVT prophylaxis: High risk for DVT,: Malignancy advanced age On subcu heparin Code Status Full Code Disposition: Lives at home with granddaughter's family, Appreciate input from Patient will need rehab after discharge from home, referral made to Psychiatric Patient is medically stable to be transition to rehab today Total Time Total Time Spent Total Time Spent (In Minutes): Approximate 35 minutes Discharge Plan Discharge Items Patient Disposition: Transfer Inpatient Rehab Fac Reason For Visit: NEW ONSET ANEMIA,AFIB WITH RVR Discharge Diagnosis: COLON CANCER, STATUS POST SURGERY, ANEMIA/UTI/PAROXSYSMAL AFIB Activity: Per Instructions section Lifting: No more than 10 pounds Bathing Comment: you may shower Exercise/Sports: Wait until after follow-up appointment Driving/Machine Use: Resume 3 days after discharge Non-emergency contact: Primary Care Provider Call non-emergency contact if: you have any medication questions, your symptoms worsen, your pain is not controlled, your pain is worsening, your pain is concerning for you, you have a fever, your temperature is above 101.5, your wound has increased drainage and your wound pain has increased Follow-up/Referrals: Manish Fairchild MD [Surgeon] - (Please follow up in clinic within 1 week. You may call the office sooner if you have any questions/concerns.) Kathleen Griffith PA-C [Primary Care Provider] - Diet: Heart Healthy Addtl Attending Provider Instructions: Follow-up with family physician after discharge from rehab Follow-up with surgery Dr. Fairchild in 1 week for abdomen surgical staple removal PLEASE CALL SURGERY/ OFFICE-WITH ANY SIGN OF REDNESS/SWELLING, DRAINAGE AROUND THE SURGICAL YANCI, FEVER CHILLS OR INCREASED ABDOMINAL PAIN Pending Studies at Discharge: Yes Studies:: Lab work: CBC in 1 week Stand-Alone Forms: [facility] [employer] Skilled Items Patient informed of condition?: Yes DNR: No Discharge Level of Care: Skilled Communicable Disease: No Discharge Prognosis: Stable Lines: None Urinary Catheter: No Medications and DC Order Prescriptions: New MAG-AL 200-200 mg/5 mL Suspension 15 ml PO Q4H PRN (Reason: constipation) 30 Days Qty: 200 RF: 0 ciprofloxacin HCl 500 mg Tablet 250 mg PO BID 2 Days Qty: 2 RF: 0 Jamison-Sequels (iron-vit c) 200 mg (65 mg iron)-25 mg Tablet Extended Release 65 mg PO QAM 30 Days Qty: 30 RF: 0 Continued metoprolol tartrate 25 mg tablet 25 mg PO BID RF: 0 Discontinued aspirin 81 mg Tablet,Delayed Release (Dr/Ec) 81 mg PO BID RF: 0 ibuprofen 200 mg Tablet 200 mg PO Q6H PRN (Reason: Pain) RF: 0 Discharge Orders: Discharge Order (Routine); Ordered 10/29/18 Ordered By: Shira Martin/Other Patient Handouts: Diet Low Residue Admission Data Admit Date/Time: 10/18/18 14:16 Attending Provider: Shira Miles Admit Provider: Ariel Nixon Primary Care Provider: Kathleen Griffith Other Providers: Constantino Guevara ; Ariel Nixon ; Pawel Guerrier ; Manish Fairchild Other Interventions: Discharge Summary Assessment (RN) Last Done: 10/29/18 14:06
[2018-10-29] MEDS ORDERED: CIPROFLOXACIN 500 MG TAB PO SCH ×2 (21:00)
== END 2018-10-29 16:18 | DRG 330 ==
LOC: ED 12:32 → 2S 14:16 → SUATTDRO 14:16 → 2S 16:09 → 2N 10-26 15:29 → 4W 10-28 08:48

== ENCOUNTER 2019-04-08 12:38 | Inpatient (IN) ==
[2019-04-08 13:15] LABS: Basophils # (auto) 0.03 K/uL (0-0.2); Basophils % (auto) 0.4 %; Eosinophils % (auto) 1.4 %; Hematocrit (blood only) 40.6 % (37-47); Hemoglobin 13.5 g/dL (12.0-16.0); Immature Granulocytes # (auto) 0.01 K/uL (0.00-0.02); Immature Granulocytes % (auto) 0.1 %; Lymphocytes # (auto) 2.29 K/uL (1.2-3.4); Lymphocytes % (auto) 33.1 %; Mean Corpuscular Hemoglobin 33.3 pg (25-34); Mean Corpuscular Hgb Conc 33.3 g/dL (32-36); Mean Platelet Volume 11.4 fL (7.4-10.4); Monocytes # (auto) 0.47 K/uL (0.11-0.59); Monocytes % (auto) 6.8 %; Neutrophils # (auto) 4.01 K/uL (1.4-6.5); Neutrophils % (auto) 58.2 %; Platelet Count 172 K/uL (130-400); RDW Coefficient of Variation 14.8 % (11.5-14.5); RDW Standard Deviation 53.9 fL (36.4-46.3); Red Blood Count 4.06 M/uL (4.2-5.4); White Blood Count 6.91 K/uL (4.8-10.8)
[2019-04-08 13:37] LABS: Alanine Aminotransferase 64 U/L (12-78); Albumin Level 3.7 gm/dl (3.4-5.0); BUN Creatinine Ratio 15.6 (10-20); Blood Urea Nitrogen 15 mg/dl (7-18); Carbon Dioxide 22 mmol/L (21-32); Chloride 110 mmol/L (98-107); Creatinine Clr Calc Pharmacy 37.1 ml/min; Est GFR (African American) 63.7; Est GFR (Non-African American) 54.9; Glucose 89 mg/dl (70-99); Sodium 140 mmol/L (136-145)
[2019-04-08 13:39] LABS: Alkaline Phosphatase 117 U/L (45-117); Bilirubin,Total 2.2 mg/dl (0.2-1); Globulin 3.8 gm/dl (2.5-4.0); Total Protein 7.5 gm/dl (6.4-8.2); Troponin I < 0.015 ng/ml (0-0.045)
--- NOTE | 2019-04-08 13:55 | XRay Report ---
XR chest 1V portable CLINICAL HISTORY: 88 years-old Female presenting with SOB. TECHNIQUE: Portable upright AP view of the chest was obtained. COMPARISON: 10/18/2018. FINDINGS: Atherosclerosis of the aortic arch. Cardiac silhouette enlarged. Interval development of moderate rig ht and small left pleural effusions. Diffusely coarsened lung markings as on prior exam. Poor aeratio n of the lung bases, worse on the right. No pneumothorax. Degenerative changes of the thoracic spine. Osteopenia may be present. Upper abdomen normal. IMPRESSION: 1. Moderate right and small left pleural effusions with associated bibasilar atelectasis, new from p rior exam. 2. Cardiomegaly. No jose alberto pulmonary edema, however, coarsened lung markings may relate to interlobul ar septal thickening in the setting of interstitial edema. ACT 112: Negative or not required by law. Electronically signed by: Itz Goyal M.D. 04/08/2019 1:54 PM
[2019-04-08] MEDS ORDERED: dilTIAZem HCl 5 MG/ML 5 ML VIAL IV STA (14:55)
[2019-04-08] MEDS ORDERED: STAT IV Infusion **Titration per Protocol STA (14:55)
[2019-04-08] MEDS ORDERED: dilTIAZem HCL 125 MG in DEXTROSE 5% 100 ML IV SCH (15:00)
--- NOTE | 2019-04-08 15:54 | Electrocardiogram Report ---
Test Reason : Blood Pressure : / mmHG Vent. Rate : 134 BPM Atrial Rate : 107 BPM P-R Int : 000 ms QRS Dur : 076 ms QT Int : 304 ms P-R-T Axes : 000 108 233 degrees QTc Int : 453 ms Atrial fibrillation with rapid ventricular response Rightward axis Abnormal ECG When compared with ECG of 12-NOV-2018 12:14, Significant changes have occurred Confirmed by Gordon Neely ([id number]) on 04/08/2019 3:54:09 PM Referred By: Confirmed By:Gordon Neely
[2019-04-08] MEDS ORDERED: OPTIRAY 320 125ml IV PRN (15:56)
--- NOTE | 2019-04-08 16:13 | CT Scan Report ---
CT angio chest PE protocol CT DOSE: 204.10 mGy.cm HISTORY: 88 years-old Female with afib rvr sob evla for PE. Acute shortness of breath with atrial f ibrillation TECHNIQUE: Multiple CTA images of the chest were obtained after the intravenous administration of 118 ml Optiray 320. Coronal and sagittal MIPS were obtained from the axial data set and were submitted for review. All measurements were obtained according to NASCET criteria. A dose lowering technique w as utilized adhering to the principles of ALARA. COMPARISON: Chest radiograph of same day, chest CT 10/19/2018 FINDINGS: CTA: Moderate cardiomegaly. Small pericardial effusion. Coronary artery calcifications. Moderate to extens joseph calcified plaque the thoracic aorta without aneurysm. The aorta and left heart is not well evalua radha secondary to contrast bolus timing. Reflux of contrast into the IVC and hepatic veins. The pulmon mya artery is opacified to the level of the proximal subsegmental branches and demonstrates no fillin g defects to suggest pulmonary thromboembolic disease. CT CHEST: Heterogeneous thyroid. 11 mm subcarinal lymph node is mildly enlarged and nonspecific. Prominent axil tess chain lymph nodes are present on the right measuring up to 8 mm. Small left and moderate right p leural effusions. No pneumothorax. Bibasilar groundglass opacities with dependent consolidation. Mild bronchial wall thickening is noted in conjunction with mild intralobular septal thickening. Mild muc ous plugging of the lung bases. Subpleural calcifications adjacent to the superior segment left lower lobe redemonstrated. Mild biapical pleural-parenchymal scarring. There are no suspicious pulmonary n odules or masses identified. The central airways appear patent. No acute process of the imaged upper abdomen. Mild generalized body wall edema. Degenerative changes of the shoulders and spine. IMPRESSION: 1. Moderate cardiomegaly with mild interstitial pulmonary edema, small pericardial effusion with smal l left and moderate right pleural effusions. 2. Bibasilar groundglass and consolidative opacities favor atelectasis. Pneumonitis considered less l ikely. 3. No evidence of pulmonary thromboembolic disease. ACT 112: Negative or not required by law. The above report was generated using voice recognition software. It may contain grammatical, syntax o r spelling errors. Electronically signed by: Nabeel Calixto M.D. 04/08/2019 4:11 PM
[2019-04-08] MEDS ORDERED: FUROSEMIDE 40 MG/4 ML VIAL IV STA (16:17)
[2019-04-08 16:22] LABS: INR 1.2 (0.9-1.1); Partial Thromboplastin Time 27.6 Seconds (21.0-31.0); Prothrombin Time 12.4 Seconds (9.0-12.0)
[2019-04-08 16:39] LABS: Potassium 3.7 mmol/L (3.5-5.1)
--- NOTE | 2019-04-08 16:40 | Ultrasound Report ---
BILATERAL LOWER EXTREMITY VENOUS DOPPLER HISTORY: Leg swelling and pain eval for dvt COMPARISON STUDY: None. FINDINGS: There is normal compressibility, flow, and augmentation within the bilateral lower extremit y deep venous systems. IMPRESSION: No DVT within the right or left lower extremity. ACT 112: Negative or not required by law. Electronically signed by: Virgil Burgess M.D. 04/08/2019 4:39 PM
[2019-04-08] MEDS ORDERED: HEPARIN SOD 5,000 UNIT/0.5 ML VIAL ONE (17:30)
[2019-04-08] MEDS: HEPARIN SODIUM/DEXTROSE 25,000 UNITS/500 ML BAG IV SCH (17:43)
[2019-04-08] MEDS ORDERED: ACETAMINOPHEN 325 MG TAB PO PRN (18:27)
[2019-04-08 18:58] LABS: Appearance Urine Clear (Clear); Bacteria Urine Automated Negative (Negative); Bilirubin Urine Negative (Negative); Blood Urine Negative (Negative); Cast Urine Automated 0 /lpf (0-5); Color Urine Yellow; Epithelial Cell Urine Auto 0-5 /lpf (0-5); Glucose Urine UA Negative (Negative); Ketones Urine Negative (Negative); Leukocyte Esterase Urine Trace (Negative); Nitrite Urine Negative (Negative); Protein Urine Negative (Negative); RBC Urine Automated 0-4 /hpf (0-4); Urobilinogen Urine Negative (Negative)
--- NOTE | 2019-04-08 19:01 | History & Physical Report ---
Date of Service April 08, 2019 Assessment & Plan (1) Atrial fibrillation with RVR: -Admit to telemetry -Patient presenting by referral of PCP office for evaluation of lower extremity edema and atrial fibrillation with RVR -In the ED, found to be in atrial fibrillation with RVR with rates in the 130s -History of paroxysmal atrial fibrillation during hospital admission 10/2018, felt to be caused by anemia and acute illness. Anticoagulation was not started given patient's anemia at that time. Anemia was secondary to colon mass which has since been resected. Patient also followed up with heme-onc and received IV iron infusions. Hgb stable today at 13.5, no signs of bleeding. -No precipitating cause identified today, electrolytes WNL, no obvious source of infection. TSH pending -S/p Cardizem 5 mg IV bolus in the ED, started on a drip with improvement in heart rate. Continue Cardizem drip and home dose of metoprolol, further medications adjustments as per cardiology -Initial troponin negative, will continue to cycle -Resting echo -Started on heparin drip in the ED, will continue; [id number] at least 4 -Cardiology consult, input appreciated (2) CHF (congestive heart failure): -Bilateral pleural effusions and lower extremity edema -Likely due to atrial fibrillation with RVR -S/p Lasix 40 mg IV in the ED. diuresing well, further diuresis dosing after morning evaluation -Follow-up CXR in a.m. -Strict I's and O's, low Na+ diet, daily standing weights -Check echo (3) Bilateral pleural effusion: -Likely secondary to CHF -Follow-up CXR in a.m. (4) Pericardial effusion: -Noted to have small pericardial effusion on CT scan -Echo (5) HTN (hypertension): -BP controlled -Currently on diltiazem drip, continue home dose of metoprolol (6) DVT prophylaxis: -On IV heparin drip History of Present Illness Chief Complaint: Lower extremity edema Primary Care Provider: Kathleen Griffith 88-year-old female who presents the ED for evaluation of lower extremity edema. Patient reports her symptoms have been going on for the past week and a half. She presented to her PCPs office today and was found to be in atrial fibrillation with RVR. She was then sent to the ED for further evaluation. Patient reports that today she noted some heart palpitations. Denies chest pain. She reports she has shortness of breath when she climbs a flight of stairs however that is unchanged her baseline. She denies orthopnea. Reports she does weigh herself on a regular basis and reports a 5 pound weight gain in the past 1 week. No lightheadedness, dizziness, diaphoresis, syncopal event. She denies any other recent illnesses, fevers, chills. No abdominal pain, nausea, vomiting, diarrhea. She denies any urinary symptoms. In the ED, patient was found to be in atrial fibrillation with RVR with rates in the 130s. CXR shows bilateral pleural effusions. CTA chest is negative for pulmonary embolism however shows small pericardial effusion. Lower extremity Dopplers were negative for DVT. Patient was given a 5 mg Cardizem bolus and started on a drip. She was also given Lasix 40 mg IV and started on a heparin drip. Allergies Allergy/AdvReac Type Severity Reaction Status Date / Time amoxicillin AdvReac Intermediate Rash Unverified 04/08/19 15:13 diphenhydramine AdvReac Intermediate Rash Unverified 04/08/19 15:13 [From Benadryl] Penicillins AdvReac Intermediate Severe Rash Unverified 04/08/19 15:13 Home Medications Home Medications Medication Instructions Recorded Confirmed Type metoprolol tartrate 25 mg PO BID 10/18/18 04/08/19 History aspirin [Aspir-81] 81 mg PO DAILY 04/08/19 04/08/19 History Past Med/Surg History Medical History Colon cancer History of shingles HTN (hypertension) Malignant tumor of ascending colon Migraine Surgical History H/O partial resection of colon History of colonoscopy History of tooth extraction Family History Sister Cancer Social History Preferred Language: Panamanian Communication Ability: Effective Occupational Therapist Assistants Required: No Beliefs That Will Affect Care: None marital status: / Current Living Situation: Family Current Living Situation Comment: Lives with granddaugther and great grandchild Other Information That Helps Us Care for You: No Feels Safe at Home: Yes Smoking Status: Former smoker Age Quit Using Tobacco: 32 ; Number of Years Since Quit: 50 ; Hx Alcohol Use: No Hx Substance Use: No Review of Systems Review of Systems: ROS per HPI, all other systems reviewed and negative Physical Exam Constitutional: WD/WN, vitals as above Eyes: PERRL, conjunctivae normal, anicteric sclerae ENMT: external ear and nose normal, oropharynx normal Respiratory: normal respiratory effort; no respiratory distress Auscultation: + diminished lung sounds and + crackles (Faint, bilateral bases) Cardiovascular: Rate/Rhythm: regular rate and + irregularly irregular Vessels: normal peripheral pulses Extremities: + edema (+2 edema BLE, R > L) Gastrointestinal (Abdomen): normal bowel sounds, soft, nontender, no hepatosplenomegaly Musculoskeletal: no cyanosis or clubbing, extremities motor strength 5/5 Skin: no rashes, warm and dry Neurologic: PERRL, EOMI, accommodation nl, no face palsy, no dysarthria Psychiatric: A+Ox3, euthymic affect Results & Data Vital Signs (Past 12 Hours) Vital Signs Temp Pulse Pulse Resp BP BP Pulse Ox 04/08/19 18:30 36.7 C 77 18 122/71 95 04/08/19 18:00 98 H 20 134/78 99 04/08/19 17:46 96 H 04/08/19 17:45 93 H 13 141/88 H 04/08/19 17:42 95 H 19 120/92 04/08/19 17:30 94 H 7 L 04/08/19 17:15 106 H 19 04/08/19 17:00 117 H 13 122/75 98 04/08/19 16:47 106 H 04/08/19 16:00 102 H 12 141/88 H 04/08/19 15:53 119 H 22 122/72 04/08/19 15:30 105 H 15 130/72 04/08/19 15:19 120 H 13 135/73 04/08/19 15:15 132 H 16 135/73 04/08/19 15:00 127 H 29 H 04/08/19 14:58 143 H 20 04/08/19 14:44 137 H 23 138/124 H 04/08/19 14:36 98 04/08/19 12:45 36.4 C L 134 H 18 128/77 97 Laboratory Results Short CBC 04/08/19 Range/Units 12:56 WBC 6.91 (4.8-10.8) K/uL Hgb 13.5 (12.0-16.0) g/dL Hct 40.6 (37-47) % Plt Count 172 (130-400) K/uL BMP 04/08/19 04/08/19 12:56 15:58 Sodium 140 Potassium 3.7 Chloride 110 H Carbon Dioxide 22 BUN 15 Creatinine 0.94 Glucose 89 Calcium 9.0 Cardiac Enzymes 04/08/19 Range/Units 12:56 Troponin I < 0.015 (0-0.045) ng/ml Liver Function 04/08/19 04/08/19 Range/Units 12:56 15:58 Total Bilirubin 2.2 H (0.2-1) mg/dl AST 39 H (15-37) U/L ALT 64 (12-78) U/L Alkaline Phosphatase 117 (45-117) U/L Albumin 3.7 (3.4-5.0) gm/dl Urine 04/08/19 Range/Units 18:37 Urine Color Yellow Urine Appearance Clear (Clear) Urine pH 7.0 (4.5-7.5) Ur Specific [place] 1.010 (1.000-1.030) Urine Protein Negative (Negative) Urine Glucose (UA) Negative (Negative) Diagnostic Findings CXR IMPRESSION: 1. Moderate right and small left pleural effusions with associated bibasilar atelectasis, new from prior exam. 2. Cardiomegaly. No jose alberto pulmonary edema, however, coarsened lung markings may relate to interlobular septal thickening in the setting of interstitial edema. CHEST CTA IMPRESSION: 1. Moderate cardiomegaly with mild interstitial pulmonary edema, small pericardial effusion with small left and moderate right pleural effusions. 2. Bibasilar groundglass and consolidative opacities favor atelectasis. Pneumonitis considered less likely. 3. No evidence of pulmonary thromboembolic disease. BLLE VENOUS DOPPLER IMPRESSION: No DVT within the right or left lower extremity. Code Status & VTE Plan Code Status Patient is a DNR as per my discussion with her. VTE Prophylaxis Plan VTE Prophylaxis will be ordered: No Supervising Physician Co-Signing Physician Notes Attending addendum The patient was seen and examined in the emergency room She has been complaining of palpitations since this morning without any chest pain and/or pressure She has leg swelling which has been ongoing and has been to her primary care physician recently and was advised to come to the emergency room Denies any fever no chills, any nausea no vomiting, any numbness and tingling involving of the extremities On examination Lying in bed comfortably but anxious Hemodynamically stable with heart rate up around 106/min Chest decreased breath sounds with occasional crackles at the bases- Heart-S1-S2 irregular with a 2/6 systolic murmur over precordium Abdomen-benign, bowel sounds present Extremities-1+ edema bilaterally CLAIM REVIEW MEDICAL DIRECTOR-alert, awake and oriented x3. Generally weak but no focal sensory or motor deficit appreciated Admission labs, imaging studies and EKG reviewed Has atrial fibrillation with RVR Congestive heart failure likely diastolic with bilateral pleural effusion Has been started on intravenous Cardizem,IV heparin and will continue beta- kady Echo of the heart has been ordered Cardiology evaluation Agree with assessment and plan as outlined above by Felicia Cortes (1) CHF (congestive heart failure) Heart failure chronicity: unspecified Heart failure type: unspecified Qualified Code(s): I50.9 - Heart failure, unspecified
[2019-04-08] MEDS: METOPROLOL TARTRATE 25 MG TAB PO SCH (20:07)
--- NOTE | 2019-04-08 21:11 | Emergency Department Note ---
Entered by Tucker Frank acting as a scribe for History of Present Illness General Chief complaint: Swelling/Edema to Extremity Stated complaint: SWELLING IN LEGS, WARM TO TOUCH, AFIB Time Seen by Provider: 04/08/19 14:46 Source: patient History of Present Illness Onset (ago): week(s) 1 Location: lower extremity Pain Consistency: + constant Quality: + other (leg swelling) Associated symptoms: + other (Positive for SOB, heart racing, and leg swelling. Negative for fever, CP, and vomiting.) The patient is an 88 year old female who presents to the emergency department with complaints of constant leg swelling beginning a week ago. The patient states that her legs have been swelling for the last week. She notes that she went to her PCP this morning and was referred to the emergency department for DVT versus PE rule out. She reports that her right leg is currently more swollen than her left leg. The patient states that she was SOB this morning, and she notes that she felt her heart racing at that time. She also complains of leg pain, but she denies any fever, CP, and vomiting. She reports that she had a cold 3 weeks ago. She denies any personal or family history of blood clots. The patient states that she had a partial colon resection 6 months ago. She has colon cancer. She had no chemo or radiation. Home Medications Home Medications Medication Instructions Recorded Confirmed Type metoprolol tartrate 25 mg PO BID 10/18/18 04/08/19 History aspirin [Aspir-81] 81 mg PO DAILY 04/08/19 04/08/19 History Allergies Allergy/AdvReac Type Severity Reaction Status Date / Time amoxicillin AdvReac Intermediate Rash Unverified 04/08/19 15:13 diphenhydramine AdvReac Intermediate Rash Unverified 04/08/19 15:13 [From Benadryl] Penicillins AdvReac Intermediate Severe Rash Unverified 04/08/19 15:13 Past Med/Surg History Medical History Colon cancer History of shingles HTN (hypertension) Malignant tumor of ascending colon Migraine Surgical History H/O partial resection of colon History of colonoscopy History of tooth extraction Family History Sister Cancer Social History Preferred Language: Slovenian Communication Ability: Effective Returned Case Inspector Required: No Beliefs That Will Affect Care: None marital status: / Current Living Situation: Family Current Living Situation Comment: Lives with granddaugther and great grandchild Other Information That Helps Us Care for You: No Feels Safe at Home: Yes Smoking Status: Former smoker Age Quit Using Tobacco: 32 ; Number of Years Since Quit: 50 ; Hx Alcohol Use: No Hx Substance Use: No Review of Systems See HPI for pertinent positives & negatives. and A total of 10 systems reviewed and were otherwise negative Physical Exam Vital Signs Vital Signs - 24 hr 04/08/19 12:45 04/08/19 14:36 04/08/19 14:44 Temperature 36.4 C L Temperature Source Oral Pulse Rate 134 H 137 H Pulse Rhythm Regular Pulse Strength Normal Respiratory Rate 18 23 Respiratory Effort / Characteristics Non-Labored Respiratory Depth Normal Respiratory Pattern Regular Blood Pressure 128/77 138/124 H Blood Pressure Mean 94 126 Blood Pressure Position Sitting Pulse Oximetry 97 98 Oxygen Delivery Method Room Air Room Air Sepsis Recent Fever Within 48 Hours No Sepsis Action Taken by Nursing No Action Required 04/08/19 14:58 04/08/19 15:00 04/08/19 15:15 Temperature Temperature Source Pulse Rate 143 H 127 H 132 H Pulse Rhythm Pulse Strength Respiratory Rate 20 29 H 16 Respiratory Effort / Characteristics Respiratory Depth Respiratory Pattern Blood Pressure 135/73 Blood Pressure Mean 93 Blood Pressure Position Pulse Oximetry Oxygen Delivery Method Sepsis Recent Fever Within 48 Hours Sepsis Action Taken by Nursing 04/08/19 15:19 04/08/19 15:30 04/08/19 15:53 Temperature Temperature Source Pulse Rate 120 H 105 H 119 H Pulse Rhythm Pulse Strength Respiratory Rate 13 15 22 Respiratory Effort / Characteristics Respiratory Depth Respiratory Pattern Blood Pressure 135/73 130/72 122/72 Blood Pressure Mean 96 91 88 Blood Pressure Position Pulse Oximetry Oxygen Delivery Method Sepsis Recent Fever Within 48 Hours Sepsis Action Taken by Nursing 04/08/19 16:00 04/08/19 16:47 04/08/19 17:00 Temperature Temperature Source Pulse Rate 102 H 106 H 117 H Pulse Rhythm Pulse Strength Respiratory Rate 12 13 Respiratory Effort / Characteristics Respiratory Depth Respiratory Pattern Blood Pressure 141/88 H 122/75 Blood Pressure Mean 105 90 Blood Pressure Position Pulse Oximetry 98 Oxygen Delivery Method Room Air Sepsis Recent Fever Within 48 Hours Sepsis Action Taken by Nursing Constitutional: Vital signs reviewed. Eyes: Pupils are equal round reactive to light. Conjunctiva are noninjected. ENT: Pharynx is clear without erythema or exudate. Mucous membranes are moist. Neck supple without meningeal signs. Respiratory: Clear to auscultation bilaterally. Breath sounds are equal bilaterally. Cardiovascular: Irregularly irregular rhythm, tachycardic. Rate in the 130s. No rubs or gallops. GI: Soft, nondistended and nontender. Bowel sounds are present. Musculoskeletal: Bilateral lower extremity edema, greater on right side, no tenderness to palpation. Integumentary: No cyanosis. Neurological: The patient is awake and alert. No focal deficits. Psychiatric: Normal affect. Course Course 1448: The patient was evaluated in room C12. A complete history and physical exam was performed. 1515: I rechecked the patient. Her heart rate is 129. She was being started on the Cardizem drip and bolus now. We discussed the risks and benefits of heparin. 1523: I reevaluated the patient. Her heart rate is 117 after receiving a bolus. The Cardizem drip is running. 1627: I rechecked the patient. She was in [place]. I spoke to her family about her test results. 1632: I spoke with GIOVANNI Cardoso, magnetic resonance imaging director for [facility]. The patient will be evaluated for further management. 1650: I rechecked the patient. I spoke to her about her test results. She is agreeable to IV heparin and she is also requesting a Rausch because of the Lasix. Consultations Consultation #1: I spoke with GIOVANNI Cardoso, magnetic resonance imaging director for [facility]. The patient will be evaluated for further management. Time: 16:32 Administered Medications Diltiazem HCl 125 mg/ Dextrose 125 mls @ 10 mls/hr IV .[id number] [facility]; Protocol Stop: 05/08/19 14:59 Last Titration: 04/08/19 19:15 Dose: 10 mg/hr, 10 mls/hr Documented by: [id number] Cosigned by: [id number] Admin: 04/08/19 15:13 Dose: 10 mg/hr, 10 mls/hr Documented by: [id number] Cosigned by: [id number] Heparin Sodium/Dextrose (Heparin Sodium/Dextrose) 25,000 units in 500 mls @ 20 mls/hr IV .Q24H [facility]; Protocol Stop: 05/08/19 16:44 Last Titration: 04/08/19 19:16 Dose: 1,000 units/hr, 20 mls/hr Documented by: [id number] Cosigned by: [id number] Admin: 04/08/19 17:43 Dose: 1,000 units/hr, 20 mls/hr Documented by: [id number] Cosigned by: [id number] Metoprolol Tartrate (Lopressor) 25 mg PO BID [facility] Stop: 05/08/19 20:59 Last Admin: 04/08/19 20:07 Dose: 25 mg Documented by: [id number] Discontinued Medications Diltiazem HCl (Cardizem) 5 mg IV NOW STA Stop: 04/08/19 14:56 Last Admin: 04/08/19 15:13 Dose: 5 mg Documented by: [id number] Cosigned by: [id number] Furosemide (Lasix) 40 mg IV NOW STA Stop: 04/08/19 16:18 Last Admin: 04/08/19 17:43 Dose: 40 mg Documented by: [id number] Heparin Sodium (Porcine) (Heparin Sodium (Porcine)) Confirm Administered Dose 5,000 units .ROUTE .STK-MED ONE Stop: 04/08/19 17:31 Last Admin: 04/08/19 17:42 Dose: 5,000 units Documented by: [id number] Cosigned by: [id number] Heparin Sodium/Dextrose () 1 ea IV NOW STA; Protocol Stop: 04/08/19 16:34 Last Admin: 04/08/19 17:44 Dose: Not Given Documented by: [id number] Ioversol (Optiray 320 125ml) 118 ml IV ONCE PRN PRN Reason: Interaction Checking Stop: 04/12/19 15:55 Last Admin: 04/08/19 15:57 Dose: 118 ml Documented by: [id number] Miscellaneous () 1 ea N/A NOW STA Stop: 04/08/19 14:56 Last Admin: 04/08/19 15:17 Dose: Not Given Documented by: [id number] Critical Care Time Critical Care Time: Yes Total Critical Care Time: 40 I have personally spent 40 minutes of critical care time in the direct management of this patient with severe tachycardia with atrial fibrillation and RVR with shortness of breath. This includes bedside care, interpretation of diagnostic studies, and testing, discussion with consultants, patient, and family members, and other required patient management activities. This 40 minutes is in excess of all separately billable procedures. Medical Decision Making Differential Diagnosis Differential diagnoses include: DVT, PE, Afib with RVR, SVT, metabolic derangement, and ACS. Medical Records Attestation: I reviewed the patient's medical records. I did perform a limited focused review of portions of the patient's old chart on the electronic medical record. The patient has had no recent pertinent visits to this hospital. Home Medications Current Medication List: was personally reviewed by me Laboratory Data Attestation: I reviewed the patient's lab results. Result diagrams: 04/08/19 12:56 04/08/19 15:58 Lab Results 04/08/19 04/08/19 04/08/19 Range/Units 12:56 12:56 12:56 WBC 6.91 (4.8-10.8) K/uL RBC 4.06 L (4.2-5.4) M/uL Hgb 13.5 (12.0-16.0) g/dL Hct 40.6 (37-47) % MCV 100.0 (80-100) fL MCH 33.3 (25-34) pg MCHC 33.3 (32-36) g/dL RDW Std Deviation 53.9 H (36.4-46.3) fL RDW Coeff of Chaka 14.8 H (11.5-14.5) % Plt Count 172 (130-400) K/uL MPV 11.4 H (7.4-10.4) fL Immature Gran % (Auto) 0.1 % Neut % (Auto) 58.2 % Lymph % (Auto) 33.1 % Berrien % (Auto) 6.8 % Eos % (Auto) 1.4 % Baso % (Auto) 0.4 % Immature Gran # (Auto) 0.01 (0.00-0.02) K/uL Neut # (Auto) 4.01 (1.4-6.5) K/uL Lymph # (Auto) 2.29 (1.2-3.4) K/uL Berrien # (Auto) 0.47 (0.11-0.59) K/uL Eos # (Auto) 0.10 (0-0.5) K/uL Baso # (Auto) 0.03 (0-0.2) K/uL PT Cancelled INR Cancelled APTT Cancelled PTT Ratio Cancelled Sodium 140 (136-145) mmol/L Potassium (3.5-5.1) mmol/L Chloride 110 H (98-107) mmol/L Carbon Dioxide 22 (21-32) mmol/L Anion Gap 8.0 (3-11) BUN 15 (7-18) mg/dl Creatinine 0.94 (0.6-1.2) mg/dl Est Cr Clr Drug Dosing 37.1 ml/min Est GFR ( Amer) 63.7 Est GFR (Non-Af Amer) 54.9 BUN/Creatinine Ratio 15.6 (10-20) Glucose 89 (70-99) mg/dl Calcium 9.0 (8.5-10.1) mg/dl Magnesium (1.8-2.4) mg/dl Total Bilirubin 2.2 H (0.2-1) mg/dl AST (15-37) U/L ALT 64 (12-78) U/L Alkaline Phosphatase 117 (45-117) U/L Troponin I < 0.015 (0-0.045) ng/ml NT-Pro-B Natriuret Pep (0-1800) pg/ml Total Protein 7.5 (6.4-8.2) gm/dl Albumin 3.7 (3.4-5.0) gm/dl Globulin 3.8 (2.5-4.0) gm/dl Albumin/Globulin Ratio 1.0 (0.9-2) TSH (0.300-4.500) uIu/ml 04/08/19 04/08/19 04/08/19 Range/Units 15:58 15:58 15:58 WBC (4.8-10.8) K/uL RBC (4.2-5.4) M/uL Hgb (12.0-16.0) g/dL Hct (37-47) % MCV (80-100) fL MCH (25-34) pg MCHC (32-36) g/dL RDW Std Deviation (36.4-46.3) fL RDW Coeff of Chaka (11.5-14.5) % Plt Count (130-400) K/uL MPV (7.4-10.4) fL Immature Gran % (Auto) % Neut % (Auto) % Lymph % (Auto) % [place] % (Auto) % Eos % (Auto) % Baso % (Auto) % Immature Gran # (Auto) (0.00-0.02) K/uL Neut # (Auto) (1.4-6.5) K/uL Lymph # (Auto) (1.2-3.4) K/uL Berrien # (Auto) (0.11-0.59) K/uL Eos # (Auto) (0-0.5) K/uL Baso # (Auto) (0-0.2) K/uL PT 12.4 H INR 1.2 H APTT 27.6 PTT Ratio 1.0 Sodium (136-145) mmol/L Potassium 3.7 (3.5-5.1) mmol/L Chloride (98-107) mmol/L Carbon Dioxide (21-32) mmol/L Anion Gap (3-11) BUN (7-18) mg/dl Creatinine (0.6-1.2) mg/dl Est Cr Clr Drug Dosing ml/min Est GFR ( Amer) Est GFR (Non-Af Amer) BUN/Creatinine Ratio (10-20) Glucose (70-99) mg/dl Calcium (8.5-10.1) mg/dl Magnesium 2.0 (1.8-2.4) mg/dl Total Bilirubin (0.2-1) mg/dl AST 39 H (15-37) U/L ALT (12-78) U/L Alkaline Phosphatase (45-117) U/L Troponin I (0-0.045) ng/ml NT-Pro-B Natriuret Pep 2028 H (0-1800) pg/ml Total Protein (6.4-8.2) gm/dl Albumin (3.4-5.0) gm/dl Globulin (2.5-4.0) gm/dl Albumin/Globulin Ratio (0.9-2) TSH (0.300-4.500) uIu/ml 04/08/19 Range/Units 15:58 WBC (4.8-10.8) K/uL RBC (4.2-5.4) M/uL Hgb (12.0-16.0) g/dL Hct (37-47) % MCV (80-100) fL MCH (25-34) pg MCHC (32-36) g/dL RDW Std Deviation (36.4-46.3) fL RDW Coeff of Chaka (11.5-14.5) % Plt Count (130-400) K/uL MPV (7.4-10.4) fL Immature Gran % (Auto) % Neut % (Auto) % Lymph % (Auto) % [place] % (Auto) % Eos % (Auto) % Baso % (Auto) % Immature Gran # (Auto) (0.00-0.02) K/uL Neut # (Auto) (1.4-6.5) K/uL Lymph # (Auto) (1.2-3.4) K/uL [place]rien # (Auto) (0.11-0.59) K/uL Eos # (Auto) (0-0.5) K/uL Baso # (Auto) (0-0.2) K/uL PT INR APTT PTT Ratio Sodium (136-145) mmol/L Potassium (3.5-5.1) mmol/L Chloride (98-107) mmol/L Carbon Dioxide (21-32) mmol/L Anion Gap (3-11) BUN (7-18) mg/dl Creatinine (0.6-1.2) mg/dl Est Cr Clr Drug Dosing ml/min Est GFR ( Amer) Est GFR (Non-Af Amer) BUN/Creatinine Ratio (10-20) Glucose (70-99) mg/dl Calcium (8.5-10.1) mg/dl Magnesium (1.8-2.4) mg/dl Total Bilirubin (0.2-1) mg/dl AST (15-37) U/L ALT (12-78) U/L Alkaline Phosphatase (45-117) U/L Troponin I (0-0.045) ng/ml NT-Pro-B Natriuret Pep (0-1800) pg/ml Total Protein (6.4-8.2) gm/dl Albumin (3.4-5.0) gm/dl Globulin (2.5-4.0) gm/dl Albumin/Globulin Ratio (0.9-2) TSH 3.700 (0.300-4.500) uIu/ml Imaging Data Radiologist's Impression: Radiology results as stated below per my review and the radiologist's interpretation: XR chest 1V portable CLINICAL HISTORY: 88 years-old Female presenting with SOB. TECHNIQUE: Portable upright AP view of the chest was obtained. COMPARISON: 10/18/2018. FINDINGS: Atherosclerosis of the aortic arch. Cardiac silhouette enlarged. Interval development of moderate right and small left pleural effusions. Diffusely coarsened lung markings as on prior exam. Poor aeration of the lung bases, worse on the right. No pneumothorax. Degenerative changes of the thoracic spine. Osteopenia may be present. Upper abdomen normal. IMPRESSION: 1. Moderate right and small left pleural effusions with associated bibasilar atelectasis, new from prior exam. 2. Cardiomegaly. No jose alberto pulmonary edema, however, coarsened lung markings may relate to interlobular septal thickening in the setting of interstitial edema. ACT 112: Negative or not required by law. Electronically signed by: Itz Goyal M.D. 04/08/2019 1:[address] angio chest PE protocol CT DOSE: 204.10 mGy.cm HISTORY: 88 years-old Female with afib rvr sob evla for PE. Acute shortness of breath with atrial fibrillation TECHNIQUE: Multiple CTA images of the chest were obtained after the intravenous administration of 118 ml Optiray 320. Coronal and sagittal MIPS were obtained from the axial data set and were submitted for review. All measurements were obtained according to NASCET criteria. A dose lowering technique was utilized adhering to the principles of ALARA. COMPARISON: Chest radiograph of same day, chest CT 10/19/2018 FINDINGS: CTA: Moderate cardiomegaly. Small pericardial effusion. Coronary artery calcifications. Moderate to extensive calcified plaque the thoracic aorta withou t aneurysm. The aorta and left heart is not well evaluated secondary to contrast bolus timing. Reflux of contrast into the IVC and hepatic veins. The pulmonary artery is opacified to the level of the proximal subsegmental branches and demonstrates no filling defects to suggest pulmonary thromboembolic disease. CT CHEST: Heterogeneous thyroid. 11 mm subcarinal lymph node is mildly enlarged and n onspecific. Prominent axillary chain lymph nodes are present on the right measuring up to 8 mm. Small left and moderate right pleural effusions. No pneumothorax. Bibasilar groundglass opacities with dependent consolidation. Mild bronchial wall thickening is noted in conjunction with mild intralobular septal thickening. Mild mucous plugging of the lung bases. Subpleural calcifications adjacent to the superior segment left lower lobe redemonstrated. Mild biapical pleural-parenchymal scarring. There are no suspicious pulmonary nodules or masses identified. The central airways appear patent. No acute process of the imaged upper abdomen. Mild generalized body wall edema. Degenerative changes of the shoulders and spine. IMPRESSION: 1. Moderate cardiomegaly with mild interstitial pulmonary edema, small pericardial effusion with small left and moderate right pleural effusions. 2. Bibasilar groundglass and consolidative opacities favor atelectasis. Pneumonitis considered less likely. 3. No evidence of pulmonary thromboembolic disease. ACT 112: Negative or not required by law. The above report was generated using voice recognition software. It may contain grammatical, syntax or spelling errors. Electronically signed by: Nabeel Calixto M.D. 04/08/2019 4:11 PM BILATERAL LOWER EXTREMITY VENOUS DOPPLER HISTORY: Leg swelling and pain eval for dvt COMPARISON STUDY: None. FINDINGS: There is normal compressibility, flow, and augmentation within the bilateral lower extremity deep venous systems. IMPRESSION: No DVT within the right or left lower extremity. ACT 112: Negative or not required by law. Electronically signed by: Virgil Burgess M.D. 04/08/2019 4:39 PM ECG Data Attestation: I personally reviewed and interpreted this ECG as follows: Indication: + tachycardia Rate (beats per minute): 134 Rhythm: + atrial fibrillation (with RVR) ECG ST segments: no ST elevation ECG Findings: no PVCs Additional Comments: Nonspecific ST changes in the anterior and lateral leads. Blood Pressure Blood Pressure Findings: Elevated blood pressure Blood Pressure Disposition: further management by hospitalist ELIZA Hines I did evaluate the patient as noted above. The patient was sent here by her doctor's office for evaluation of possible PE/DVT. She has had leg swelling right greater than the left with some pain. She developed some shortness of breath this morning. IV access was established. The patient was placed on a continuous crude unit operator. She is tachycardic. I did order and personally review the patient's 12-lead EKG as described above. She has atrial fibrillation with RVR with nonspecific ST-T wave changes. I did treat her with a bolus of Cardizem IV. She was then placed on a continuous drip of Cardizem 10 mg/h. I did order and personally reviewed the images of the patient's chest x- ray as described above. There is no acute abnormality. I did order and review the patient's blood work as noted in the electronic medical record. I did order a CT angiogram of the chest. I did review the images myself as well as the radiology report as described above. There is no evidence of PE. She does have cardiomegaly. She also has pulmonary edema, bilateral pleural effusions and a small pericardial effusion. I did order Doppler ultrasounds of the lower extremities which showed no evidence of DVT. I did treat the patient with Lasix. She was also started on a heparin drip with bolus after I discussed risks with her and her family. I did discuss the case with hospitalist and major case detective. Her rate eventually improved on the Cardizem drip. I did reassess her several times. An order was placed for continuous cardiac monitoring for tachycardia. The monitor shows a rate of 135 with atrial fibrillation with RVR. Impression & Plan Atrial fibrillation with RVR, Atrial fibrillation, new onset, CHF (congestive heart failure), Leg edema, Pulmonary edema, Bilateral pleural effusion, Pericardial effusion Discharge Plan Visit Data *Final* Discharge Date/Time: 04/08/19 18:00 Chief Complaint: Swelling/Edema to Extremity Stated Complaint: SWELLING IN LEGS, WARM TO TOUCH, AFIB ED Provider: Aguilar Jacobo Discharge Problem: Atrial fibrillation with RVR, Atrial fibrillation, new onset, CHF (congestive heart failure), Leg edema, Pulmonary edema, Bilateral pleural effusion, Pericardial effusion Patient Disposition: Admitted As Inpatient Discharge Instructions Interventions: ED Discharge Assessment Last Done: 04/08/19 18:00 Discharge Problem: CHF (congestive heart failure) Qualifiers: Heart failure type: unspecified Heart failure chronicity: unspecified Qualified Code(s): I50.9 - Heart failure, unspecified The scribe's documentation has been prepared under my direction and personally reviewed by me in its entirety. I confirm that the note above accurately reflects all work, treatment, procedures, and medical decision making performed by me.
[2019-04-08] MEDS ORDERED: ALBUMIN 25% 50 ML IV ONE (23:46)
[2019-04-08] MEDS ORDERED: POTASSIUM CHLORIDE 20 MEQ TABCR PO STA (23:48)
[2019-04-09 00:48] LABS: Partial Thromboplastin Ratio 4.3
[2019-04-09 08:18] LABS: Hematocrit (blood only) 37.8 % (37-47); Hemoglobin 12.3 g/dL (12.0-16.0); Mean Corpuscular Hemoglobin 32.9 pg (25-34); Mean Corpuscular Hgb Conc 32.5 g/dL (32-36); Mean Corpuscular Volume 101.1 fL (80-100); Platelet Count 155 K/uL (130-400); RDW Coefficient of Variation 14.8 % (11.5-14.5); Red Blood Count 3.74 M/uL (4.2-5.4); White Blood Count 4.94 K/uL (4.8-10.8)
[2019-04-09 08:43] LABS: Partial Thromboplastin Ratio 1.9
--- NOTE | 2019-04-09 08:43 | XRay Report ---
XR chest 2V PA/lateral HISTORY: pleural effusion COMPARISON: Chest 04/08/2019. FINDINGS: No pneumothorax. Small moderate right and small left pleural effusions persist bibasilar de nsities/interstitial thickening are also unchanged. Pulmonary edema has resolved. The heart remains m ildly enlarged. Emphysema. IMPRESSION: 1. Interval resolution of the pulmonary edema. 2. No change in the bilateral pleural effusions and bibasilar densities. 3. Stable mild cardiomegaly. ACT 112: Negative or not required by law. Electronically signed by: Virgil Burgess M.D. 04/09/2019 8:42 AM
[2019-04-09 08:48] LABS: BUN Creatinine Ratio 14.5 (10-20); Calcium 8.9 mg/dl (8.5-10.1); Creatinine Clr Calc Pharmacy 34.9 ml/min; Est GFR (African American) 59.1; Magnesium 2.1 mg/dl (1.8-2.4); Potassium 3.9 mmol/L (3.5-5.1)
[2019-04-09 08:49] LABS: Partial Thromboplastin Time 51.9 Seconds (21.0-31.0)
[2019-04-09] MEDS: ASPIRIN 81 MG ECTAB PO SCH ×2 (10:20→10:33)
[2019-04-09] MEDS: METOPROLOL TARTRATE 25 MG TAB PO SCH ×2 (10:20→20:37)
--- NOTE | 2019-04-09 10:58 | Electrocardiogram Report ---
Test Reason : Blood Pressure : / mmHG Vent. Rate : 099 BPM Atrial Rate : 000 BPM P-R Int : 000 ms QRS Dur : 076 ms QT Int : 346 ms P-R-T Axes : 000 095 252 degrees QTc Int : 444 ms Atrial fibrillation Rightward axis T wave abnormality, consider inferior ischemia T wave abnormality, consider anterolateral ischemia Abnormal ECG When compared with ECG of 08-APR-2019 14:40, Inverted T waves have replaced nonspecific T wave abnormality in Anterior leads Confirmed by Gordon Neely ([id number]) on 04/09/2019 10:58:02 AM Referred By: Kathleen Griffith Confirmed By:Gordon Neely
[2019-04-09] MEDS: dilTIAZem HCL 120 MG CAPCR PO SCH (12:20)
--- NOTE | 2019-04-09 12:43 | Cardiology Consultation ---
Date of Consultation April 09, 2019 Assessment & Plan (1) Atrial fibrillation with RVR: The pathophysiology and treatment options for atrial fibrillation were discussed with her at great length today. We discussed the pros and cons of rate versus rhythm strategy and she states that she prefer to have the least amount of procedures done possible. So at this time we will follow a rate control strategy. I will start Cardizem CD 120 mg daily now and her outpatient metoprolol will be continued as well. We discussed anticoagulation and the patient would prefer to use Eliquis and based on her age and weight should be started on 2.5 mg p.o. daily this evening. Her heparin will be discontinued prior to this. We will continue to follow her on telemetry with the hope being that she becomes rate controlled overnight. Her echocardiogram did show mitral regurgitation with moderate left atrial enlargement so this would obviously decrease the likelihood of obtaining sinus rhythm. (2) Acute diastolic (congestive) heart failure: Does not currently examine his volume overloaded. Echocardiogram shows normal LV systolic function. We will continue to follow her volume status clinically. (3) Right ventricular systolic dysfunction: Unclear etiology. Her RV is not dilated but systolic function is reduced by TAPSE study. Continue to volume volume status clinically. (4) Tricuspid regurgitation: Severe History of Present Illness Reason for Consultation: New onset atrial fibrillation with rapid ventricular response. Requesting Physician: Dr. Waddell Attending Physician: Adi Sands MD History of Present Illness It was my pleasure to see Mrs. Mae in consultation today May 06, 2019. As you know she is a very pleasant 88-year-old woman who is not known to [facility] cardiology. She presented to [facility] emergency department on April 08, 2019 reportedly at the direction of her PCP after being found to be in atrial fibrillation with rapid ventricular response. The patient states that her symptoms started approximately 2 weeks ago when she started developing lower extremity edema. The edema continued to progress and approximately 3 days prior to presentation she started noticing her heart racing in her chest. She states it was not particularly bothersome but she happened to notice it. Upon arrival to the emergency room she was found to be in A. fib with rapid ventricular response in the 130s and volume overloaded with bilateral pleural effusions. She was started on a heparin and Cardizem drips. She was given a dose of IV Lasix with good diuresis and admitted to the telemetry. Overnight her blood pressure became a little low and the Cardizem drip was discontinued and her rates remained in the 90s to low 100s. Currently she is asymptomatic at rest and states her lower extremity edema has significantly improved. She denies any previous cardiac history and is never seen a child development assistant before. Allergies Allergy/AdvReac Type Severity Reaction Status Date / Time amoxicillin AdvReac Intermediate Rash Unverified 04/08/19 15:13 diphenhydramine AdvReac Intermediate Rash Unverified 04/08/19 15:13 [From Benadryl] Penicillins AdvReac Intermediate Severe Rash Unverified 04/08/19 15:13 Home Medications Home Medications Medication Instructions Recorded Confirmed Type metoprolol tartrate 25 mg PO BID 10/18/18 04/08/19 History aspirin [Aspir-81] 81 mg PO DAILY 04/08/19 04/08/19 History Patient History Medical History Colon cancer History of shingles HTN (hypertension) Malignant tumor of ascending colon Migraine Surgical History H/O partial resection of colon History of colonoscopy History of tooth extraction Family History Sister Cancer Social History Preferred Language: Estonian Communication Ability: Effective 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 No acute distress. HEENT: Normocephalic, atraumatic. Pupils equal, round and reactive to light and accommodation. Extraocular muscles are intact. Anicteric sclera. Moist mucous membranes. Neck: No JVD. No bruit. Cardiovascular: irregularly irregular, unable to appreciate murmur, rub or gallop. Pulmonary: Clear to auscultation bilaterally. No rales, rhonchi, or wheezing. Abdomen: Bowel sounds x 4, soft. No rebound, guarding or tenderness. No organomegaly. Extremities: No clubbing, cyanosis or edema. +2 pedal pulses bilaterally. Skin: Warm and dry. Results & Data ([facility]) Vital Signs (Past 12 Hours) Vital Signs Temp Pulse Pulse Resp BP Pulse Ox 04/09/19 11:11 36.5 C 96 H 18 110/67 94 04/09/19 08:00 98 H 04/09/19 07:50 36.6 C 91 H 18 104/68 93 04/09/19 03:21 36.8 C 90 16 94/55 L 91
[2019-04-09] MEDS: APIXABAN 2.5 MG TAB PO SCH (17:00)
[2019-04-09] MEDS: HEPARIN SODIUM/DEXTROSE 25,000 UNITS/500 ML BAG IV SCH (17:09)
--- NOTE | 2019-04-09 17:39 | Hospitalist Progress Note ---
Date of Service April 09, 2019 Assessment & Plan (1) Atrial fibrillation with RVR: was sent by PCP office for lower extremity edema and atrial fibrillation with RVR Atrial fibrillation with RVR with rate in the 130s on admission She said that she was in Afib in the past CT chest showed no PE Received IV cardizem 5mg in the ER and was starting on cardizem drip and heparin drip cardiology on board Starting on PO cardizem 120mg daily Continue Metoprolol 25mg BID Cardizem drip on hold now [id number] at least 4 Eliquis 2.5 mg BID started and Heparin drip was discontinued Echo showed no segmental left ventricular wall motion abnormality. Severe right atrial enlargement and moderate left atrial enlargement. ejection fraction between 55 to 60%. HR improved Contininue monitor in tele (2) Acute diastolic (congestive) heart failure: Mostly due to Afib Bilateral pleural effusions and lower extremity edema CXR showed moderate right and small left pleural effusions with associated bibasilar atelectasis Repeat CXR showed Interval resolution of the pulmonary edema. ProBNP 2027 on admission Received Lasix 40 mg IV in the ED and diuresing well Clinically denies any SOB Hold for additional lasix for now Continue Metoprolol Cardiology on board (3) Bilateral pleural effusion: Repeat CXR showed no change in the bilateral pleural effusions and bibasilar densities. Clinically stable Continue monitor closely (4) Pericardial effusion: CT chest showed small pericardial effusion with small left and moderate right pleural effusions. Received IV lasix in the ER No pericardial effusion on Echo (5) HTN (hypertension): BP controlled On metoprolol 25mg and cardizem 120mg stable LE EDEMA Doppler of LE showed no DVT within the right or left lower extremity. Lasix 40mg IV given Edema improves significantly (6) DVT prophylaxis: IV heparin drip was transition to Eliquis CODE STATUS DNR Admission and Anticipated Discharge Date Admission Date: April 08, 2019 Subjective Pt was seen and examined Lying in bed with no distress Pt said that she feels much better She said that she does not have any palpitation She said that her lower extremities edema improve Denies any chest pain, palpitation and SOB Physical Exam Physical Exam: General- No acute distress Head- atraumatic Eyes- PERRL, EOMI, ENT- oropharynx clear Neck- supple, no JVD Lungs- clear to auscultation Heart- irregular rhythm; no murmur Abdomen- normal bowel sounds, soft, nontender Extremities- no calf tenderness, +trace edema Neuro- alert, oriented x 3; PERRL, EOMI; no facial palsy; no dysarthria Skin- warm & dry Results & Data ([facility]) Vital Signs (Past 12 Hours) Vital Signs Temp Pulse Pulse Resp BP Pulse Ox 04/09/19 15:49 37.0 C 109 H 18 102/65 93 04/09/19 15:31 101 H 04/09/19 11:11 36.5 C 96 H 18 110/67 94 04/09/19 08:00 98 H 04/09/19 07:50 36.6 C 91 H 18 104/68 93
[2019-04-10] MEDS: METOPROLOL TARTRATE 25 MG TAB PO SCH ×2 (07:46→20:40)
[2019-04-10] MEDS: APIXABAN 2.5 MG TAB PO SCH ×2 (07:46→20:40)
[2019-04-10] MEDS: dilTIAZem HCL 120 MG CAPCR PO SCH (07:46)
[2019-04-10 09:36] LABS: BUN Creatinine Ratio 13.9 (10-20); Calcium 8.8 mg/dl (8.5-10.1); Creatinine Clr Calc Pharmacy 33.5 ml/min; Est GFR (African American) 56.3; Est GFR (Non-African American) 48.6
--- NOTE | 2019-04-10 10:49 | Cardiology Progress Note ---
Date of Service April 10, 2019 Assessment & Plan (1) Atrial fibrillation with RVR: The pathophysiology and treatment options for atrial fibrillation were discussed with her at great length today. We discussed the pros and cons of rate versus rhythm strategy and she states that she prefer to have the least amount of procedures done possible. She is responded very well to medical therapy and is now rate controlled with a combination of Cardizem and metoprolol. She is also been started on Eliquis without any signs of significant bleeding. Given the fact that she is asymptomatic and rate controlled at this point along with the fact that she is tolerating her anticoagulation I see no need for her to remain admitted at this point. Would recommend discharge to home and follow-up with cardiology in 2 to 4 weeks as an outpatient. Her echocardiogram did show mitral regurgitation with moderate left atrial enlargement so this would obviously decrease the likelihood of obtaining sinus rhythm. (2) Acute diastolic (congestive) heart failure: Does not currently examine his volume overloaded. Echocardiogram shows normal LV systolic function. Likely worsened by A. fib with RVR (3) Right ventricular systolic dysfunction: Unclear etiology. Her RV is not dilated but systolic function is reduced by TAPSE study. Continue to volume volume status clinically. (4) Tricuspid regurgitation: Severe Subjective Patient seen and examined lying in bed. States that she feels well. No complaints overnight. Denies any cardiac complaints of chest pain, shortness of breath, palpitations, lightheadedness, dizziness or syncope. States her lower extremity edema has resolved as well. Telemetry reviewed: Atrial fibrillation with controlled ventricular response. Review of Systems Review of Systems: All systems reviewed & are unremarkable except as noted in HPI & below Physical Exam Physical Exam: General: Awake, alert and oriented x 3. No acute distress. HEENT: Normocephalic, atraumatic. Pupils equal, round and reactive to light and accommodation. Extraocular muscles are intact. Anicteric sclera. Moist mucous membranes. Neck: No JVD. No bruit. Cardiovascular: irregularly irregular, unable to appreciate murmur, rub or gallop. Pulmonary: Clear to auscultation bilaterally. No rales, rhonchi, or wheezing. Abdomen: Bowel sounds x 4, soft. No rebound, guarding or tenderness. No organomegaly. Extremities: No clubbing, cyanosis or edema. +2 pedal pulses bilaterally. Skin: Warm and dry. Results & Data Vital Signs (Past 12 Hours) Vital Signs Temp Pulse Resp BP Pulse Ox 04/10/19 07:09 36.5 C 73 18 103/68 93 04/10/19 03:40 36.6 C 86 18 105/63 92 04/10/19 00:08 36.6 C 96 H 19 96/62 L 93
--- NOTE | 2019-04-10 16:00 | Electrocardiogram Report ---
Test Reason : Blood Pressure : / mmHG Vent. Rate : 106 BPM Atrial Rate : 000 BPM P-R Int : 000 ms QRS Dur : 078 ms QT Int : 376 ms P-R-T Axes : 000 095 254 degrees QTc Int : 499 ms Atrial fibrillation with rapid ventricular response Rightward axis Abnormal ECG When compared with ECG of 09-APR-2019 06:20, No significant change was found Confirmed by Gordon Neely ([id number]) on 04/10/2019 4:00:05 PM Referred By: Kathleen Griffith Confirmed By:Gordon Neely
--- NOTE | 2019-04-10 20:25 | Hospitalist Progress Note ---
Date of Service April 10, 2019 Assessment & Plan (1) Atrial fibrillation with RVR: Presented with new onset atrial fibrillation with rapid ventricular response. Potassium, magnesium, TSH were normal. Serial troponins were normal. Pulmonary embolism ruled out by CTA. Echocardiogram demonstrated enlarged left atrium and other findings as noted below. Cardiology consulted. Initially managed with IV diltiazem, metoprolol, IV heparin. Anticoagulation transition from IV heparin to apixaban. Need to check [id number] cost prior to discharge. Diltiazem transition from parenteral to oral. Management options explained to the patient by Cardiology. Patient opts for rate control and anticoagulation at this time. (2) Acute diastolic (congestive) heart failure: Chest x-ray at the time of admission showed cardiomegaly and CHF. Echocardiogram demonstrated mild concentric LVH, normal left ventricular wall motion and systolic function with an LVEF of 55-60%, enlarged left atrium, reduced RV systolic function, tricuspid regurgitation. Probable acute left ventricular diastolic heart failure, aggravated by atrial fibrillation with rapid ventricular response. Received IV furosemide with improvement. (3) Right ventricular systolic dysfunction: Right ventricular systolic dysfunction and tricuspid regurgitation noted on echo. No history of underlying pulmonary disease. Oxygenating well on room air. (4) Pericardial effusion: Small pericardial effusion noted on echo, no hemodynamic compromise. (5) HTN (hypertension): Continue metoprolol and diltiazem. (6) DVT prophylaxis: Initially received intravenous heparin, then transition to apixaban. (7) Discharge planning issues: Anticipated discharge to home. Medical follow-up with Kathleen Griffith PA-C. Follow-up with Cardiology in 2-4 weeks recommended. Admission and Anticipated Discharge Date Admission Date: April 08, 2019 Subjective Recheck for atrial fibrillation. Patient seen in their room around 1800. Feels better. Palpitations improved. No chest pain or shortness of breath. Lower extremity edema improved. Review of Systems: Constitutional- no fever. Cardiac- as noted above. Pulmonary- no cough or SOB. GI- no nausea, vomiting, diarrhea, melena, hematochezia. - no urinary symptoms. Otherwise, as noted above. Physical Exam Constitutional: no acute distress Respiratory: no respiratory distress Auscultation: lungs clear to auscultation bilaterally Cardiovascular: Rate/Rhythm: + irregularly irregular Heart Sounds: no gallop Vessels: no JVD Extremities: + edema (trace pretibial); no calf tenderness Gastrointestinal (Abdomen): normal bowel sounds, soft, nontender, no hepatosplenomegaly Musculoskeletal: Extremities: no cyanosis Skin: no rashes, warm and dry Psychiatric: Orientation: alert and oriented x 3 Results & Data ([facility]) Vital Signs (Past 12 Hours) Vital Signs Temp Pulse Resp BP BP Pulse Ox 04/10/19 19:47 36.4 C L 93 H 20 114/73 97 04/10/19 15:16 36.5 C 80 18 105/67 91 04/10/19 11:07 36.3 C L 50 L 18 113/68 95 Laboratory Results 04/09/19 08:08 04/10/19 09:06
[2019-04-11] MEDS: APIXABAN 2.5 MG TAB PO SCH (08:44)
[2019-04-11] MEDS: METOPROLOL TARTRATE 25 MG TAB PO SCH (08:44)
[2019-04-11] MEDS: dilTIAZem HCL 120 MG CAPCR PO SCH (08:45)
--- NOTE | 2019-04-11 11:26 | Cardiology Progress Note ---
Date of Service April 11, 2019 Assessment & Plan (1) Atrial fibrillation with RVR: The pathophysiology and treatment options for atrial fibrillation were discussed with her at great length today. We discussed the pros and cons of rate versus rhythm strategy and she states that she prefer to have the least amount of procedures done possible. She is responded very well to medical therapy and is now rate controlled with a combination of Cardizem and metoprolol. She is also been started on Eliquis without any signs of significant bleeding. If there is an issue with insurance coverage we could always change to another anticoagulant. May be the [facility] clinic might be of benefit with coupons? Given the fact that she is asymptomatic and rate controlled at this point along with the fact that she is tolerating her anticoagulation I see no need for her to remain admitted at this point. Would recommend discharge to home and follow-up with cardiology in 2 to 4 weeks as an outpatient, my office will call to arrange. Her echocardiogram did show mitral regurgitation with moderate left atrial enlargement so this would obviously decrease the likelihood of obtaining sinus rhythm. (2) Acute diastolic (congestive) heart failure: Does not currently examine his volume overloaded. Echocardiogram shows normal LV systolic function. Likely worsened by A. fib with RVR (3) Right ventricular systolic dysfunction: Unclear etiology. Her RV is not dilated but systolic function is reduced by TAPSE study. Continue to volume volume status clinically. (4) Tricuspid regurgitation: Severe Subjective Patient seen and examined sitting upright in bed stating that she feels well. Notes that her lower extremity edema has resolved and denies any chest pain, shortness of breath, palpitations, lightheadedness, dizziness or syncope. She is been tolerating medications well without issue. Telemetry reviewed: Atrial fibrillation with rates varying in the 60s to low 100s. Review of Systems Review of Systems: All systems reviewed & are unremarkable except as noted in HPI & below Physical Exam Physical Exam: General: Awake, alert and oriented x 3. No acute distress. HEENT: Normocephalic, atraumatic. Pupils equal, round and reactive to light and accommodation. Extraocular muscles are intact. Anicteric sclera. Moist mucous membranes. Neck: No JVD. No bruit. Cardiovascular: irregularly irregular, unable to appreciate murmur, rub or gallop. Pulmonary: Clear to auscultation bilaterally. No rales, rhonchi, or wheezing. Abdomen: Bowel sounds x 4, soft. No rebound, guarding or tenderness. No organomegaly. Extremities: No clubbing, cyanosis or edema. +2 pedal pulses bilaterally. Skin: Warm and dry. Results & Data Vital Signs (Past 12 Hours) Vital Signs Temp Pulse Pulse Pulse Pulse Resp BP 04/11/19 08:00 36.4 C L 96 H 20 106/56 L 04/11/19 07:00 82 04/11/19 04:38 36.5 C 84 17 04/10/19 23:40 36.3 C L 96 H 20 BP Pulse Ox 04/11/19 08:00 94 04/11/19 07:00 04/11/19 04:38 102/63 96 04/10/19 23:40 107/69 91
--- NOTE | 2019-04-11 11:35 | Hospitalist Progress Note ---
Date of Service April 11, 2019 Assessment & Plan (1) Atrial fibrillation with RVR: Presented with new onset atrial fibrillation with rapid ventricular response. Potassium, magnesium, TSH were normal. Serial troponins were normal. Pulmonary embolism ruled out by CTA. Echocardiogram demonstrated enlarged left atrium and other findings as noted below. Cardiology consulted. Initially managed with IV diltiazem, metoprolol, IV heparin. Anticoagulation transition from IV heparin to apixaban. . Diltiazem transition from parenteral to oral. Management options explained to the patient by Cardiology. Patient opts for rate control and anticoagulation at this time. Spoke with patient's retail pharmacist. Uncertain whether or not patient has prescription coverage and what her out of pocket costs would be. Patient given coupon for 30 day supply if she needs it. Will ask [facility] to assist patient with logistics or consider other options if necessary. (2) Acute diastolic (congestive) heart failure: Chest x-ray at the time of admission showed cardiomegaly and CHF. Echocardiogram demonstrated mild concentric LVH, normal left ventricular wall motion and systolic function with an LVEF of 55-60%, enlarged left atrium, red uced RV systolic function, tricuspid regurgitation. Probable acute left ventricular diastolic heart failure, aggravated by atrial fibrillation with rapid ventricular response. Received IV furosemide with improvement. KYLEIGH / ARB not indicated due to diastolic dysfunction. Does not appear to need ongoing diuretic therapy at this time. Given CHF education & instructions. (3) Right ventricular systolic dysfunction: Right ventricular systolic dysfunction and tricuspid regurgitation noted on echo. No history of underlying pulmonary disease. Oxygenating well on room air. (4) Pericardial effusion: Small pericardial effusion noted on echo, no hemodynamic compromise. (5) HTN (hypertension): Continue metoprolol and diltiazem. (6) DVT prophylaxis: Initially received intravenous heparin, then transitioned to apixaban. (7) Discharge planning issues: Discharged to home. Medical follow-up with Kathleen Griffith PA-C. Cardiology follow-up with Dr. Abbott in 2-4 weeks. Admission and Anticipated Discharge Date Admission Date: April 08, 2019 Subjective Recheck for atrial fibrillation. Patient seen in their room around 1100. Daughter visiting. Doing well. Palpitations improved. No chest pain or shortness of breath. Lower extremity edema improved. Ambulating. Ready to go home. Physical Exam Constitutional: no acute distress Respiratory: no respiratory distress Auscultation: lungs clear to auscultation bilaterally Cardiovascular: Rate/Rhythm: + irregularly irregular Heart Sounds: no gallop Vessels: no JVD Extremities: + edema (trace pretibial); no calf tenderness Gastrointestinal (Abdomen): normal bowel sounds, soft, nontender, no hepatosplenomegaly Musculoskeletal: Extremities: no cyanosis Skin: no rashes, warm and dry Psychiatric: Orientation: alert and oriented x 3 Results & Data ([facility]) Vital Signs (Past 12 Hours) Vital Signs Temp Pulse Pulse Pulse Pulse Resp BP 04/11/19 08:00 36.4 C L 96 H 20 106/56 L 04/11/19 07:00 82 04/11/19 04:38 36.5 C 84 17 04/10/19 23:40 36.3 C L 96 H 20 BP Pulse Ox 04/11/19 08:00 94 04/11/19 07:00 04/11/19 04:38 102/63 96 04/10/19 23:40 107/69 91
--- NOTE | 2019-04-12 07:53 | Discharge Summary ---
Date of Service Date of Admission: 04/08/19 Date of Discharge: 04/11/19 Admission HPI Per Admitting Provider 88-year-old female who presents the ED for evaluation of lower extremity edema. Patient reports her symptoms have been going on for the past week and a half. She presented to her PCPs office today and was found to be in atrial fibrillation with RVR. She was then sent to the ED for further evaluation. Patient reports that today she noted some heart palpitations. Denies chest pain. She reports she has shortness of breath when she climbs a flight of stairs however that is unchanged her baseline. She denies orthopnea. Reports she does weigh herself on a regular basis and reports a 5 pound weight gain in the past 1 week. No lightheadedness, dizziness, diaphoresis, syncopal event. She denies any other recent illnesses, fevers, chills. No abdominal pain, nausea, vomiting, diarrhea. She denies any urinary symptoms. In the ED, patient was found to be in atrial fibrillation with RVR with rates in the 130s. CXR shows bilateral pleural effusions. CTA chest is negative for pulmonary embolism however shows small pericardial effusion. Lower extremity Dopplers were negative for DVT. Patient was given a 5 mg Cardizem bolus and started on a drip. She was also given Lasix 40 mg IV and started on a heparin drip. Principal Diagnosis atrial fibrillation with rapid ventricular response OTHER NEW / ACUTE DIAGNOSES: acute left ventricular diastolic heart failure Discharge Data Allergies Allergy/AdvReac Type Severity Reaction Status Date / Time amoxicillin AdvReac Intermediate Rash Unverified 04/08/19 15:13 diphenhydramine AdvReac Intermediate Rash Unverified 04/08/19 15:13 [From Benadryl] Penicillins AdvReac Intermediate Severe Rash Unverified 04/08/19 15:13 Consultations 04/08/19 16:33 ED Decision to Admit Stat 04/08/19 18:27 Consult Cardiology Routine Ordered Studies 04/08/19 14:55 CT angio chest PE protocol Stat US venous doppler LE BI Stat Hospital Course (1) Atrial fibrillation with RVR: Presented with new onset atrial fibrillation with rapid ventricular response. Potassium, magnesium, TSH were normal. Serial troponins were normal. Pulmonary embolism ruled out by CTA. Echocardiogram demonstrated enlarged left atrium and other findings as noted below. Cardiology consulted. Initially managed with IV diltiazem, metoprolol, IV heparin. Anticoagulation transition from IV heparin to apixaban. . Diltiazem transition from parenteral to oral. Management options explained to the patient by Cardiology. Patient opts for rate control and anticoagulation at this time. Spoke with patient's retail pharmacist. Uncertain whether or not patient has prescription coverage and what her out of pocket costs would be. Patient given coupon for 30 day supply if she needs it. Will ask [facility] to assist patient with logistics or consider other options if necessary. (2) Acute diastolic (congestive) heart failure: Chest x-ray at the time of admission showed cardiomegaly and CHF. Echocardiogram demonstrated mild concentric LVH, normal left ventricular wall motion and systolic function with an LVEF of 55-60%, enlarged left atrium, reduced RV systolic function, tricuspid regurgitation. Probable acute left ventricular diastolic heart failure, aggravated by atrial fibrillation with rapid ventricular response. Received IV furosemide with improvement. KYLEIGH / ARB not indicated due to diastolic dysfunction. Does not appear to need ongoing diuretic therapy at this time. Given CHF education & instructions. (3) Right ventricular systolic dysfunction: Right ventricular systolic dysfunction and tricuspid regurgitation noted on echo. No history of underlying pulmonary disease. Oxygenating well on room air. (4) Pericardial effusion: Small pericardial effusion noted on echo, no hemodynamic compromise. (5) HTN (hypertension): Continue metoprolol and diltiazem. (6) DVT prophylaxis: Initially received intravenous heparin, then transitioned to apixaban. (7) Discharge planning issues: Discharged to home. Medical follow-up with Kathleen Griffith PA-C. Cardiology follow-up with Dr. Abbott in 2-4 weeks. Total Time Total Time Spent Total Time Spent (In Minutes): 45 Discharge Plan Discharge Items Patient Disposition: Home - Self-Care Reason For Visit: heart palpitations Discharge Diagnosis: atrial fibrillation (irregular heart rhythm) congestive heart failure (fluid in lungs) Condition on Discharge: Good Activity: As commented below Activity Comment: gradually increase diet as tolerated Non-emergency contact: Primary Care Provider, Hospitalist and [employer] Reporter Call non-emergency contact if: you have any medication questions and your symptoms worsen Follow-up/Referrals: Bolivar Abbott DO [Physician] - (Office will contact you with appointment in 2-4 weeks.) Kathleen Griffith PA-C [Primary Care Provider] - 04/15/19 1:00 pm Diet: Heart Healthy [facility] Attending Provider Instructions: INSTRUCTIONS FOR CONGESTIVE HEART FAILURE: Call 911 and go to the Emergency Room if: * You have tightness or pain in your chest that does not go away with rest or Nitroglycerin * You are very short of breath even with rest Call your doctor if any of the following symptoms or problems start or get worse: * Shortness of breath or difficulty breathing * Wake up at night short of breath * Chest pain * Cough * Swelling of your hands, fee, or legs * More fatigued or tired with your normal activity * Palpitations - sudden fast heart beats WEIGHT * Weigh yourself every morning after using the bathroom. * Use the same scale. * Wear the same amount of clothing. * Write your weight down on your chart. * Call your doctor if you gain more than 2-3 pounds in 1-2 days. MEDICATIONS * Use this discharge instruction sheet for instructions. * Take your medications at the time your doctor ordered. * Do not skip a dose of your medicines. * If you miss a dose of medicine, take as soon as possible, but DO NOT DOUBLE A DOSE. * Read your medicine information when you get home. * Know all of the side effects of your medicine. * Call your doctor's office if you have any side effects. * Be sure all of your doctors know what medicine and herbs you take (including cold, flu, and herbal medicine). * Pain Medicine: If you do not get relief from your pain, please call your doctor for help. Take the following with you to your follow-up doctor appointments: * Weight Chart * Medication List * List of questions Do not drink excessive alcohol, beer or wine. OTHER INSTRUCTIONS: MEDICATION CHANGES: Start diltiazem (Cardizem and other brands) once a day to help control atrial fibrillation. Start Eliquis twice a day to help prevent blood clots. Continue metoprolol twice a day. STOP aspirin. SUMMARY OF TEST RESULTS: Electrocardiogram showed atrial fibrillation- an irregular heart rhythm. Potassium, magnesium, and thyroid levels were normal. No sign of heart attack. No sign of blood clots in lungs or legs. Echocardiogram (ultrasound of heart) showed that heart muscle in largest heart chamber is strong. Another chamber (the left atrium) was enlarged- this can cause atrial fibrillation. OTHER INSTRUCTIONS: Avoid stimulants like too much caffeine. Seek medical attention if you have: * temperature above 101 * chest pain or trouble breathing * swelling of legs or feet * abdominal pain, nausea, vomiting * diarrhea, dark stools or bloody stools * any unanswered questions or concerns Call 911 if symptoms are severe. Please take good care of yourself. Call if you have any questions or problems. You can reach a [facility] hospitalist on duty at [facility] 24 hours a day by calling [phone]. My cell # is [phone]. Pending Studies at Discharge: No Stand-Alone Forms: My [facility], Smoking Cessation Medications and DC Order Prescriptions: New Eliquis 2.5 mg Tablet 2.5 mg PO BID Qty: 60 RF: 5 diltiazem HCl 120 mg Capsule,Extended Release 24hr 120 mg PO QAM Qty: 30 RF: 5 Continued metoprolol tartrate 25 mg tablet 25 mg PO BID RF: 0 Discontinued aspirin [Aspir-81] 81 mg Tablet,Delayed Release (Dr/Ec) 81 mg PO DAILY RF: 0 Discharge Orders: Discharge Order (Routine); Ordered 04/11/19 Ordered By: Spencer Clinton Admission Data Admit Date/Time: 04/08/19 17:07 Attending Provider: Spencer Clinton Admit Provider: Kia Cortes Primary Care Provider: Kathleen Griffith Other Providers: Kia Cortes ; Bolivar Abbott ; Adi Sands Other Interventions: Discharge Summary Assessment (RN) Last Done: 04/11/19 11:53 DC Date/Time DO NOT enter until pt leaves facility: 04/11/19 13:02
== END 2019-04-11 13:02 | disposition home or self-care (01) | DRG 308 ==
LOC: ED 12:38 → SUATTDRO 17:07 → 2S 17:07